=== PATIENT | female | born 1955 | race Two or more races ===

== ENCOUNTER 2019-03-19 11:37 | Inpatient (IN) | payer MEDICAID ==
[2019-03-19] MEDS ORDERED: LR 1,000 ML IV ONE (13:13)
--- NOTE | 2019-03-19 14:00 | PDANEPAE ---
ANE Past Medical History - Cardiovascular History Hx Hypertension: Yes Hx Arrhythmias: No Hx Chest Pain: No Hx Coronary Artery / Peripheral Vascular Disease: No Hx CHF / Valvular Disease: No Hx Palpitations: No - Pulmonary History Hx COPD: No Hx Asthma/Reactive Airway Disease: No Hx Recent Upper Respiratory Infection: No Hx Oxygen in Use at Home: No O2 in Use at Home (L/minute): 2 Hx Sleep Apnea: No - Neurologic History Hx Cerebrovascular Accident: No Hx Seizures: No Hx Dementia: No - Endocrine History Hx Diabetes: Yes - Renal History Hx Renal Disorders: No - Liver History Hx Hepatic Disorders: No - Neurological & Psychiatric Hx Hx Neurological and Psychiatric Disorders: No - Cancer History Hx Cancer: No - Congenital Disorder History Hx Congenital Disorders: No - GI History Hx Gastrointestinal Disorders: No - Chronic Pain History Chronic Pain: Yes - Surgical History Prior Surgeries: hysterectomy, gall bladder surgery, appendectomy, right knee surgery, left rotator cuff repair, left knee repair ANE Review of Systems Review of Systems: - Exercise capacity METS (RN): 1 METS ANE Patient History - Allergies Allergies/Adverse Reactions: No Known Allergies Allergy (Unverified 03/19/19 11:46) - NPO status NPO Since - Liquids (Date): 03/19/19 NPO Since - Liquids (Time): 10:00 NPO Since - Solids (Date): 03/19/19 NPO Since - Solids (Time): 03:00 - Smoking Hx Smoking Status: Former smoker ANE Labs/Vital Signs - Vital Signs Blood Pressure: 163/66 Heart Rate: 81 Respiratory Rate: 16 O2 Sat (%): 93 Height: 170.18 cm Weight: 158.304 kg ANE Physical Exam - Airway Mallampati Score: Class 2 - ASA Status ASA Status: III ANE Anesthesia Plan Anesthesia Plan: GA w LMA
[2019-03-19] MEDS ORDERED: MIDAZOLAM 2 MG/2 ML VIAL ONE (14:08)
[2019-03-19] MEDS ORDERED: fentaNYL 100 MCG/2 ML INJ ONE ×2 (14:08→14:45)
[2019-03-19] MEDS ORDERED: LIDOCAINE 2% JELLY 6 ML TOPICAL SYR ONE (14:09)
[2019-03-19] MEDS ORDERED: PROPOFOL 200 MG/20 ML VIAL ONE (14:09)
[2019-03-19] MEDS ORDERED: ONDANSETRON 4 MG/2 ML VIAL ONE (14:09)
[2019-03-19] MEDS ORDERED: METOCLOPRAMIDE 10 MG/2 ML VIAL ONE (14:09)
[2019-03-19] MEDS ORDERED: ONDANSETRON 4 MG/2 ML VIAL IVP PRN (14:52)
[2019-03-19] MEDS ORDERED: ONDANSETRON DISINTEGRATING 4 MG TAB PO PRN ×2 (14:52→15:44)
--- NOTE | 2019-03-19 14:58 | PDGENHP ---
History and Physical - Chief Complaint septic knee - History of Present Illness 63yo F with history of obesity, diabetes (A1c 5.9% on 03/11/19), HTN, HLD presents from [facility] for further management of right septic knee. She underwent R TKA with Dr French on 02/24. She developed post-operative infection and underwent explant of prosthesis with placement of antibiotic infused cement spacer with Dr Sinai Loza on 03/10. She was started on IV vancomycin on 03/10. Cultures from this operation reportedly grew ESBL Proteus mirabilis and she was switched to IV zosyn 3.375mg q8h on 03/15 and vancomycin was discontinued. Her post-operative course has also been complicated by bleeding from her wound; she has required 5 units of PRBCs since 03/10. Her xarelto, which she was on for DVT prevention, has been stopped. Approximately 2 days ago (03/17), the wound drainage significantly increased and the wound continued to dehisce. She had a wound vac placed on 03/18. The decision was made to transfer to this facility today for ongoing management. Dr French is taking her to the OR this afternoon for additional washout and spacer exchange. Dr Ruffin of infectious disease has been consulted. Currently, she is without complaints. I did review her labs from 03/18 which were notable for a BUN of 36, creatinine 1.4 (GFR 40), albumin 2.6, WBC 9.3, Hgb 10.0, platelets 263. She had a UA with microscopy done on 03/18 which showed 2+ protein, 2+ blood but was negative for infection. I was unable to locate culture data in the very thick packet that arrived with the patient. History Information - Allergies/Home Medication List Allergies/Adverse Reactions: No Known Allergies Allergy (Unverified 03/19/19 11:46) I have personally reviewed and updated: family history, medical history, social history, surgical history - Past Medical History Additional medical history: obesity, osteoarthritis, HTN, diabetes, HLD - Surgical History Additional surgical history: R TKA s/p removal and spacer placement (02/2019), L shoulder rotator cuff repair - Family History Positive for: non-pertinent - Social History Smoking Status: Former smoker Alcohol Use: None Drug Use: None Additional social history: Lives alone in [place], [place] Review of Systems Review of Systems: ROS: 10pt was reviewed & negative except for what was stated in HPI & below Physical Exam Physical Exam: Temp Pulse Resp BP Pulse Ox 36.6 C 81 16 163/66 H 93 03/19/19 13:20 03/19/19 14:00 03/19/19 14:00 03/19/19 14:00 03/19/19 14:00 Constitutional: no apparent distress, obese Eyes: PERRL, anicteric sclera, EOMI Ears, Nose, Mouth, Throat: moist mucous membranes, hearing normal, ears appear normal, no oral mucosal ulcers Cardiovascular: regular rate and rhythym, no murmur, rub, or gallop, No edema Respiratory: no respiratory distress, no rales or rhonchi, clear to auscultation Gastrointestinal: normoactive bowel sounds, soft, non-tender abdomen, no palpable masses Genitourinary: no bladder fullness, no bladder tenderness Skin: warm, normal color, no rashes or abrasions, no fluctuance, no induration, No mottled Musculoskeletal: full muscle strength, no muscle tenderness, normal joint ROM, no joint effusions Neurologic: AAOx3 Psychiatric: interacting appropriately, not anxious, not encephalopathic, thought process linear Lab Data & Imaging Review POC Glucose 76 mg/dL (70-100) 03/19/19 14:07 Assessment & Plan Assessment: 63yo F with history of obesity, diabetes, HTN, HLD, recent R TKA presents from [facility] for further management of right septic knee. Plan: #Infected prosthetic R knee/septic arthritis: R TKA 02/24 s/p explant 03/10 with placement of antibiotic spacer. Joint cultures from 03/10 reportedly grew ESBL+ Proteus mirabilis. - Dr French performing washout and spacer exchange today in OR - Dr Ruffin of ID has been consulted - Continue IV zosyn 3.375g q8h - Follow intra-op cultures - Has PICC line (RUE, placed 03/10), will need extended course of antibiotics - Wound care, PT/OT, pain control #Acute kidney injury: Cr 0.7 on 03/10, up to 1.4 on 03/18. Suspect prerenal. Vancomycin toxicity a possibility but vanc troughs were 10 and 14 when checked last week. - Hold losartan - Check fena, getting fluids, recheck in AM #Diabetes: Review of notes shows some hypoglycemia at outside hospital on insulin. - Decrease glargine to 15u BID (was on ), continue SSI, check A1c #Post-operative anemia: S/p 5u PRBC at outside hospital - Xarelto was discontinued, monitor daily #Acute hypoxia: Atelectasis - Incentive spirometry at bedside #HTN: BP controlled. - Holding ARB as above, will need to monitor #Obesity: BMI 54. VTE ppx: per ortho Code: full Diet: NPO for procedure Dispo: Admit as inpatient. Will likely require >2 midnights given complexity of medical care, need for IV antibiotics, and recovery from surgery.
[2019-03-19] MEDS ORDERED: DIPHENOXYLATE/ATROPINE LOMOTIL 1 TAB PO PRN (15:44)
[2019-03-19] MEDS ORDERED: LACTULOSE 20 GM/30 ML UDCUP PO PRN (15:44)
[2019-03-19] MEDS ORDERED: METOCLOPRAMIDE 10 MG/2 ML VIAL IVP PRN (15:44)
[2019-03-19] MEDS ORDERED: BISACODYL 10 MG SUPP PR PRN (15:44)
[2019-03-19] MEDS ORDERED: PROMETHAZINE HCL 25 MG/ML INJ IVP PRN (15:44)
[2019-03-19] MEDS ORDERED: PROMETHAZINE HCL 25 MG SUPPR PR PRN (15:44)
[2019-03-19] MEDS ORDERED: diphenhydrAMINE 25 MG CAP PO PRN (15:44)
[2019-03-19] MEDS ORDERED: MAGNESIUM HYDROXIDE 30 ML UDCUP PO PRN (15:44)
[2019-03-19] MEDS ORDERED: NALOXONE HCL 0.4 MG/ML INJ IVP PRN (15:49)
[2019-03-19] MEDS ORDERED: LR 500 ML IV PRN (15:49)
--- NOTE | 2019-03-19 15:50 | POSTANESTH ---
Post Anesthetic Evaluation Cardiovascular Status: Normal, Stable Respiratory Status: Normal, Stable Level of Consciousness/Mental Status: Can Participate in Eval Pain Control: Adequate, Prn Tx Ordered Nausea/Vomiting Control: Adequate, Prn Tx Ordered Complications Possibly Related to Anesthesia: None Noted
[2019-03-19] MEDS: HYDROmorphONE/DILAUDID 1 MG/ML INJ IVP PRN ×2 (15:51→21:06)
--- NOTE | 2019-03-19 15:54 | POSTOPPROG ---
Post Op Note Date of Operation: 03/19/19 Surgeon: Clayton French Anesthesiologist: ac Anesthesia: GET(General Endotracheal) Pre-op Diagnosis: septic RT knee Post-op Diagnosis: same Indication: infection not responding to IV abx Procedure: I&D Inf/Abcess present in the surg proc area at time of surgery?: Yes Depth: Deep Incisional (Fascial) EBL: 50-100 Complications: none Bowel Protocol: Yes Clean Closure Performed: Yes Drains: Wound Vac
[2019-03-19] MEDS: fentaNYL 100 MCG/2 ML INJ IVP PRN ×2 (15:57→16:01)
[2019-03-19] MEDS ORDERED: LR 1,000 ML IV SCH (16:00)
[2019-03-19] MEDS ORDERED: HYDROmorphONE/DILAUDID 1 MG/ML INJ IVP PRN (16:24)
[2019-03-19] MEDS: ONDANSETRON 4 MG/2 ML VIAL IVP PRN (17:49)
[2019-03-19] MEDS: oxyCODONE IR 5 MG TAB PO PRN ×2 (17:51→18:23)
[2019-03-19] MEDS: ACETAMINOPHEN 325 MG TAB PO PRN (17:51)
[2019-03-19] MEDS: CYCLOBENZAPRINE 10 MG TAB PO PRN (17:51)
[2019-03-19] MEDS ORDERED: D50W 25 GM/50 ML SYR IVP PRN (19:00)
--- NOTE | 2019-03-19 19:03 | GOP ---
[f rep st] OPERATIVE REPORT DATE OF OPERATION: 03/19/2019 SURGEON: Clayton French MD ANESTHESIA: General. ANESTHESIOLOGIST: Dr. Hopson. PREOPERATIVE DIAGNOSIS: Septic arthritis, right knee following explant total knee arthroplasty. POSTOPERATIVE DIAGNOSIS: PROCEDURE PERFORMED: FINDINGS: ESTIMATED BLOOD LOSS: 10 mL. INDICATIONS: The patient is a 63-year-old female who underwent total knee arthroplasty in [facility] by myself approximately 3 weeks ago. She had postoperative infection with dehiscence of the wou nd after a fall at home. The implant was explanted approximately 9 days ago. Antibiotic spacer was placed. Cultures grew Proteus. She was switched from vancomycin to Zosyn this past Sunday, however, failed to respond to the antibiotic and wound dehisced a second time despite ongoing local wound car e and IV antibiotics. Decision was made to transferred to [facility] for a further I a nd D, Infectious Disease consult. DESCRIPTION OF PROCEDURE: After appropriate informed consent was obtained, patient was taken to the operating room, placed supine on the operating table. Time-out was performed. Patient was identifie d, correct site was identified. She did not receive any additional antibiotics. She received a dose of Zosyn this morning. Following general endotracheal tube anesthesia, she was positioned with all bony prominences well padded. The right knee was prepped and draped in the usual sterile fashion. Remaining sutures were removed. Approximately the lower third of the wound had dehisced. Wound was opened. There was some foul smelling material. No purulence within the wound. There was some nonvi able subcutaneous fat. This was debrided back sharply. Bleeding was controlled with electrocautery, as well as the Aquamantys device. Tensor mechanism was deficient on the medial side of the joint. Antibiotic spacer was in place. This was removed. The wound was then irrigated with 6 L of normal s moisés using pulsatile lavage. Bleeding was again controlled with electrocautery. Spacer was replace d. The deep layers were closed with 0 Vicryl. Superficial layers were closed with 2-0 Vicryl and 2-0 Pr olene sutures. I was able to get the majority of the wound closed, other than right of about 4 cm di stal to the most inferior spot. Wound VAC was placed over the entire incision and sterilely applied. Patient was awakened from anesthesia taken to the recovery in satisfactory condition. There were n o immediate intraoperative complications. PROCEDURE PERFORMED: Irrigation, debridement with antibiotic spacer exchange. COMPLICATIONS: None. DRAINS: None. /[id number]/MODL
[2019-03-19] MEDS: PIPERACILLIN/TAZO 3.375 GM/DEX 50 ML IV SCH (20:06)
[2019-03-19] MEDS ORDERED: INSULIN GLARGINE 100 UNITS/ML UNIT SC SCH (21:00)
[2019-03-19] MEDS: FAMOTIDINE 20 MG TAB PO SCH (21:05)
[2019-03-19] MEDS: SENNOSIDES/DOCUSATE SODIUM TAB PO SCH (21:05)
[2019-03-19] MEDS: TEMAZEPAM 15 MG CAP PO PRN (21:13)
[2019-03-19] MEDS: INSULIN GLARGINE 100 UNITS/ML UNIT SC SCH (22:24)
[2019-03-20] MEDS ORDERED: PIPERACILLIN/TAZO 4.5 GM/DEX 100 ML IV SCH
[2019-03-20] MEDS: oxyCODONE IR 5 MG TAB PO PRN (00:54)
[2019-03-20] MEDS: CYCLOBENZAPRINE 10 MG TAB PO PRN (02:15)
[2019-03-20] MEDS: PIPERACILLIN/TAZO 3.375 GM/DEX 50 ML IV SCH ×2 (04:04→11:38)
[2019-03-20] MEDS ORDERED: ALTEPLASE 2 MG VIAL IVP PRN (04:15)
[2019-03-20 04:42] LABS: PLATELET COUNT 270 10^3/uL (150-400)
[2019-03-20] MEDS ORDERED: LEVOTHYROXINE 25 MCG TAB PO SCH (06:00)
[2019-03-20] MEDS ORDERED: INSULIN GLARGINE 100 UNITS/ML UNIT SC SCH (09:00)
--- NOTE | 2019-03-20 09:34 | SOAPPROG ---
SOAP Progress Note Assessment/Plan: Assessment: s/p right knee debridement washout and wound vac application - POD 1 s/p right TKA - on 02-24-19 in [place] s/p right TKA explant and placement of antibiotic infused spacer - on 03-10-19 in [place] Plan: Begin d/c planning - will likely need more extensive care due to complexity of medical care- likely SNF Continue pain management - currently tylenol, oxycodone, flexeril, dilaudid IV - change to oral dilaudid and robaxin Continue PT efforts - WBAT. No ROM. Keep knee immobilizer in place. ID and Hospital medicine to follow - on zosyn 3.375 mg; wound vac on right knee ; several intra-operative cultures pending. -Knee joint - gram stain: 4+ PMN, no organisms seen; anaerobic cx: pending -Knee/synovial tissue - gram stain: no PMN, no organisms seen; anaerobic cx: pending -Knee joint and synovial tissue fungal cx: pending -Synovial tissue mycobacterial cx and smear: pending Subjective: Patient states she is having quite a bit of pain at the right knee and her current pain medication is not relieving it very well. She notices Dilaudid IV to be the most effective. She is also complaining of muscle spasms. Patient lives with her in [place], [place] but does not feel she would be able to go home initially and she would require more care. Patient denies shortness of breath, chest pain, fever, chills. She does complain of calf pain secondary to neuropathy. Objective: Vital Signs Temp Pulse Resp BP Pulse Ox 36.8 C 87 18 166/72 H 98 03/20/19 08:00 03/20/19 08:00 03/20/19 08:00 03/20/19 08:00 03/20/19 08:00 Microbiology 03/19/19 14:48 Gram Stain - Final Knee - Tissue 03/19/19 14:47 Gram Stain - Final Knee - Eswab Laboratory Results 03/20/19 04:35 03/20/19 04:35 03/19/19 03/20/19 03/21/19 05:59 05:59 05:59 Intake Total 1900 Output Total 325 Balance 1575 Patient lying comfortably in bed, no acute distress. Real catheter is in place. Obese body habitus. RLE: Knee immobilizer is in place, fitting well. Wound vac is also in place over the entire incision. Skin is intact. No purulent drainage. She has diffuse tenderness along the medial and lateral aspects of the knee soft tissues and bony structures. ROM not assessed. Calf is soft, but tender. No pain on Homans sign. She can actively DF and PF her right foot and great toe. Palpable DP pulse. Intact to light touch distally. ICD10 Worksheet Patient Problems: Problems Problem Status Onset Right knee pain Acute - ICD10 Problem Qualifiers (1) Right knee pain Qualifiers: Chronicity: acute Qualified Code(s): M25.561 - Pain in right knee
[2019-03-20] MEDS ORDERED: METHOCARBAMOL 750 MG TAB PO PRN (10:04)
[2019-03-20] MEDS: INSULIN LISPRO 100 UNIT/ML SC SCH ×3 (10:11→18:08)
[2019-03-20] MEDS: DULoxetine 60 MG CAP PO SCH (10:11)
[2019-03-20] MEDS: ACETAMINOPHEN 325 MG TAB PO PRN ×3 (10:12→21:07)
[2019-03-20] MEDS: LEVOTHYROXINE 50 MCG TAB PO SCH (10:12)
[2019-03-20] MEDS: FAMOTIDINE 20 MG TAB PO SCH ×2 (10:12→20:58)
[2019-03-20] MEDS: INSULIN GLARGINE 100 UNITS/ML UNIT SC SCH ×3 (10:13→22:18)
[2019-03-20] MEDS: POLYETHYLENE GLYCOL 3350 17 GM PKT PO PRN (10:16)
[2019-03-20] MEDS: SENNOSIDES/DOCUSATE SODIUM TAB PO SCH ×3 (10:16→20:58)
[2019-03-20] MEDS: HYDROmorphONE/DILAUDID 2 MG TAB PO PRN ×2 (11:02→13:38)
--- NOTE | 2019-03-20 11:22 | PDMN ---
Medical Necessity Medical necessity: Pt meets IP criteria per & KELLY M-605; est los >2 mn for eval/tx of septic arthritis w/acute kidney injury & hypoxia; requiring further monitoring, surgical intervention, IV abx & ID consult; per H&P & order 03/19/19
[2019-03-20] MEDS: NS 1,000 ML IV SCH (11:37)
--- NOTE | 2019-03-20 13:30 | PDCONSULT ---
Facility Worker Note: Infectious Diseases Consult Note Impression: 63-year-old woman with an early postoperative infection of a right knee total arthroplasty. She is now status post 2 washout and debridements with removal of the initial hardware. Will continue with the plan protocol of 6 weeks of IV antibiotics. Will utilize ertapenem as this will cover the Proteus mirabilis and a fortune to providing good activity against Staphylococcus aureus (MSSA) in the setting of a low burden of infection with 2 washout procedures. 1. Right prosthetic knee joint septic arthritis, acute; polymicrobial 2. Staphylococcus aureus (MSSA) and ESBL producing Proteus mirabilis right prosthetic knee joint infection 3. Status post right prosthetic knee explant with pacer placement 03/10/2019 4. Status post I and D with spacer exchange 03/19/2019 5. Diabetes mellitus, type 2 6. Morbid obesity 7. CKD Plan: 1. Stop piperacillin/tazobactam 2. Start ertapenem 1gm daily 3. CRP with morning labs for baseline 4. Follow up as previously planned with ID group near her home Mitchle Bello MD Infectious Diseases Chief Complaint: Infected right knee arthroplasty Requesting Provider: Dr. French Reason for Referral: Consultation was requested by Dr. French regarding antimicrobial management. HPI: 63-year-old woman who was transferred from [facility] for further surgical management right knee total arthroplasty early postoperative infection. She initially underwent right total knee arthroplasty on 02/24/2019 with a procedure to remove the prosthesis and place a spacer on 03/10/2019 due to purulent drainage and dehiscence of the wound. Cultures taken from the washout on 03/10/2019 revealed Staphylococcus aureus (MSSA) that happen. Also be penicillin susceptible and an ESBL producing Proteus mirabilis. She was initially treated with vancomycin between 03/10 and 03/15 1 the cultures resulted the vancomycin was stopped and piperacillin/tazobactam was started on 03/15. She was transferred to [facility] for further surgical debridement and spacer exchange. She underwent this procedure on 03/19 with cultures pending. Postoperatively she states she is feeling reasonably well with good control of her postoperative pain in the right knee. She notes no fevers but has noted chills over the past few days. She has a right upper extremity PICC line that is not cause any complications since placement on 03/10. She notes no antibiotic allergies in the past and has tolerated both the vancomycin and the Zosyn that she has received since her hospitalization. She has not developed diarrhea or rash while receiving Zosyn. Review of culture records from outside hospital reveal an ESBL producing Proteus mirabilis that is resistant to levofloxacin, trimethoprim/ sulfamethoxazole, susceptible to ertapenem and amikacin. Culture also grew Staphylococcus aureus (MSSA) that is susceptible to oxacillin at an ROXY of 0.5 and is susceptible to penicillin; additional susceptibilities revealed tetracyclines susceptible rifampin susceptible. Reviewed patient medical records in [facility], and [facility] Past Medical History: Diabetes mellitus, morbid obesity Past Surgical History: Left total knee arthroplasty (04/2018); right total knee arthroplasty 02/24/2019, right knee total arthroplasty explant with spacer placement 03/10/2019, right knee I and D with spacer exchange 03/19/2019 Social History: Does not use tobacco products; Does not consume marijuana products; Drinks alcohol socially; Does not use any other drugs currently or in the past Family History: No family members with recurrent infections Allergies: No known antibiotic allergies Medications: Reviewed in medical record and confirmed with patient. ROS: 10 organ systems reviewed; pertinent positives and negatives listed in the HPI, all other organ systems negative. Physical Exam: VS: Reviewed Gen: No acute distress; Breathing comfortably without supplemental oxygen; Able to speak in complete sentences Eyes: No conjunctival injection; No scleral icterus HENT: No gross deformities Neck: No limitation in range of motion Pulm: Audible inspiratory sounds to the bases bilaterally; No wheeze, rhonchi, or rales CV: Normal S1 and S2, 3/6 systolic murmur; Regular rate and rhythm; No rubs or gallops; Mild LLE edema Abd: Not distended; Normo-active bowel sounds; Soft; Non-tender Skin: A full skin exam including exposed bilateral upper extremities, bilateral lower extremities to the knees, face, neck, abdomen, chest, and back performed; Skin intact, warm, with no rash MSK: Right lower extremity in postsurgical wrapping not taken down; other joints without erythema or edema Ext: No clubbing or cyanosis Neuro: Awake and alert Psych: Normal mood and affect Labs/Imaging: All microbiology testing (culture and non-culture) reviewed in the medical record. Personally reviewed and interpreted the images of the following radiographs: No images available for review Medications Generic Name Dose Route Start Last Admin Trade Name Freq PRN Reason Stop Dose Admin Piperacillin/Tazobactam/Dextrose 50 mls @ 100 mls/hr 03/19/19 19:30 03/20/19 11:38 Zosyn 3.375 Gm (Premix) IV 04/18/19 19:29 50 mls Q8H SABINO Protocol Discontinued Medications Generic Name Dose Route Start Last Admin Trade Name Freq PRN Reason Stop Dose Admin Piperacillin/Tazobactam/Dextrose 100 mls @ 200 mls/hr 03/20/19 00:00 Zosyn (Premix) IV 04/19/19 00:00 Q6HRS SABINO Protocol Microbiology 03/19/19 14:48 Knee - Tissue Gram Stain - Final 03/19/19 14:47 Knee - Eswab Gram Stain - Final Laboratory Tests 03/20/19 03/20/19 03/20/19 04:35 04:35 04:35 WBC 11.51 H Hgb 8.8 L Plt Count 270 Creatinine 2.3 H Hemoglobin A1c Pending Ongoing monitoring for antimicrobial toxicity with: CBC, BMP, interval historical information, and interval physical exam. [id number] time with patient: 45 minutes with >50% of [id number] time spent in counseling, patient education, and coordinating care. Counseling provided included the microbiology of early prosthetic knee joint infections, expected time to resolution, natural history without treatment, and side effects of treatment.
[2019-03-20] MEDS: ERTAPENEM 1 GM in NS 100 ML IV SCH (14:37)
--- NOTE | 2019-03-20 15:50 | HOSPPROG ---
Hospitalist Progress Note Assessment/Plan: 63yo F with history of obesity, diabetes, HTN, HLD, recent R TKA presents from [facility] for further management of right septic knee. #Infected prosthetic R knee/septic arthritis: R TKA 02/24 s/p explant 03/10 with placement of antibiotic spacer. Joint cultures from 03/10 reportedly grew ESBL+ Proteus mirabilis. -status post washout with replacement of antibiotic spacer yesterday in OR -case discussed with ID, stop zosyn, start invanz, will likely need 6 weeks. -transition pain medications to PO, - Follow intra-op cultures - Has PICC line (RUE, placed 03/10), will need extended course of antibiotics - Wound care, PT/OT, pain control #Acute kidney injury: Cr 0.7 on 03/10, up to 1.4 on 03/18. Today creatinine jumped to 2.3 Suspect prerenal and may have been exacerbated by getting vanc and zosyn. Did not get much fluids in the last 24 hours. -restart IV saline -if no improvement over next 24 hours, get renal us, consult nephrology. - Hold losartan - Check fena, getting fluids, recheck in AM #Diabetes: Review of notes shows some hypoglycemia at outside hospital on insulin. - Decrease glargine to 15u BID (was on ), continue SSI, check A1c #Post-operative anemia: S/p 5u PRBC at outside hospital - Xarelto was discontinued, monitor daily #Acute hypoxia: Atelectasis - Incentive spirometry at bedside #HTN: BP controlled. - Holding ARB as above, will need to monitor #Obesity: BMI 54. VTE ppx: per ortho Code: full Diet: diabetic Dispo: inpatient for septic knee, [place] Subjective: pain manageable, not taking great PO. Objective: Vital Signs Temp Pulse Resp BP Pulse Ox 36.8 C 87 12 161/75 H 97 03/20/19 15:42 03/20/19 15:42 03/20/19 15:42 03/20/19 15:42 03/20/19 15:42 Microbiology 03/19/19 14:48 Gram Stain - Final Knee - Tissue 03/19/19 14:47 Gram Stain - Final Knee - Eswab 03/19/19 14:48 Mycobacterial Smear (ROXY) - Final Knee - Tissue Laboratory Results 03/20/19 04:35 03/20/19 04:35 03/19/19 03/20/19 03/21/19 05:59 05:59 05:59 Intake Total 1900 Output Total 325 Balance 1575 - Physical Exam Constitutional: no apparent distress, appears nourished, not in pain Eyes: PERRL, anicteric sclera, EOMI Ears, Nose, Mouth, Throat: moist mucous membranes, hearing normal, ears appear normal, no oral mucosal ulcers Cardiovascular: regular rate and rhythym, no murmur, rub, or gallop Respiratory: no respiratory distress, no rales or rhonchi, clear to auscultation Gastrointestinal: normoactive bowel sounds, soft, non-tender abdomen, no palpable masses Genitourinary: no bladder fullness, no bladder tenderness, no renal bruits Skin: no rashes or abrasions, no fluctuance, no induration Musculoskeletal: full muscle strength, no muscle tenderness, normal joint ROM, other (right knee with wound vac, knee immobilizer. ) Neurologic: AAOx3, sensation intact bilaterally Psychiatric: interacting appropriately, not anxious, not encephalopathic, thought process linear Lymph, Heme, Immunologic: no cervical LAD, no supraclavicular LAD ICD10 Worksheet Patient Problems: Problems Problem Status Onset Right knee pain Acute
[2019-03-20] MEDS: METHOCARBAMOL 500 MG TAB PO PRN (16:52)
--- NOTE | 2019-03-20 16:53 | ASMTCMCOM ---
CM Note CM Note Notes: Pt with co-morbidities including diabetes, HTN, HLD, obesity is a [place] resident in from [facility]. Pt has septic knee, had R TKA 02/24/19. Pt had R knee debridement washout and wound vac placement . PT/OT rec SNF. Pt sole insurance is Medicaid. Pt is open to 30 day Medicaid SNF stay. [id number] completed and [employer] notified to submit a LTC gabriela. Connie Tanya ([phone]) with [facility] completed pt assessment and approved her, the PASRR will not trigger. Connie will have her assessment written up tomorrow. Referrals sent to [place] Medicaid SNF facilities and Adriel with [facility] send the referral to [facility] since they are a [facility] facility. Adriel with [facility] and Kari with [facility] completed on-site assessments today. Kari with [facility] asks if [facility] will consider covering the cost of the wound vac and supplies, [facility] [employer] [facility] can consider, CM to work on getting an estimate. [facility] declines pt since they have no Medicaid bed. Neither [facility] or [facility] swing beds are an option due to the Medicaid insurance. D/c plan of care: Medicaid SNF and which is TBD Date Signed: 03/20/2019 04:53 PM Electronically Signed By:MELA Coley
[2019-03-20] MEDS: TEMAZEPAM 15 MG CAP PO PRN (21:07)
[2019-03-21] MEDS: METHOCARBAMOL 500 MG TAB PO PRN ×4 (02:01→23:37)
[2019-03-21] MEDS: HYDROmorphONE/DILAUDID 2 MG TAB PO PRN ×6 (03:51→22:47)
[2019-03-21] MEDS: ACETAMINOPHEN 325 MG TAB PO PRN ×3 (03:51→23:37)
[2019-03-21] MEDS: LEVOTHYROXINE 50 MCG TAB PO SCH (05:22)
[2019-03-21] MEDS: INSULIN LISPRO 100 UNIT/ML SC SCH ×3 (07:58→17:57)
[2019-03-21] MEDS: FAMOTIDINE 20 MG TAB PO SCH ×2 (08:34→21:12)
[2019-03-21] MEDS: ERTAPENEM 1 GM in NS 100 ML IV SCH (08:34)
[2019-03-21] MEDS: DULoxetine 60 MG CAP PO SCH (08:35)
[2019-03-21] MEDS: SENNOSIDES/DOCUSATE SODIUM TAB PO SCH ×2 (08:35→21:12)
[2019-03-21] MEDS: INSULIN GLARGINE 100 UNITS/ML UNIT SC SCH ×2 (09:11→22:10)
--- NOTE | 2019-03-21 09:39 | SOAPPROG ---
SOAP Progress Note Assessment/Plan: Assessment: s/p right knee debridement washout and wound vac application - POD 2 s/p right TKA - on 02-24-19 in [facility] s/p right TKA explant and placement of antibiotic infused spacer - on 03-10-19 in [facility] Plan: Order venous doppler U/S bilateral lower extremities - calf tenderness, s/p right knee washout, immobilized, currently not on VTE ppx Wound care nurses to change wound vac this AM Continue d/c planning - will likely need more extensive care due to complexity of medical care- likely SNF Continue pain management - currently tylenol, dilaudid, robaxin, dilaudid IV Continue PT efforts - WBAT. No ROM. Keep knee immobilizer in place. ID and Hospital medicine to follow - on ertapenem; wound vac on right knee -Staphylococcus aureus (MSSA) and ESBL producing Proteus mirabilis right prosthetic knee joint infection Subjective: Patient states her right knee, leg continues to hurt despite changing to oral dilaudid. She continues to have spasms as well. Patient states any little movement makes her knee/leg hurt. She denies shortness of breath, chest pain. Objective: Vital Signs Temp Pulse Resp BP Pulse Ox 36.7 C 79 17 157/67 H 97 03/21/19 07:35 03/21/19 07:35 03/21/19 07:35 03/21/19 07:35 03/21/19 07:35 Microbiology 03/19/19 14:48 Gram Stain - Final Knee - Tissue 03/19/19 14:47 Gram Stain - Final Knee - Eswab 03/19/19 14:48 Mycobacterial Smear (ROXY) - Final Knee - Tissue Laboratory Results 03/21/19 00:50 03/21/19 00:50 03/20/19 03/21/19 03/22/19 05:59 05:59 05:59 Intake Total 1900 1475 Output Total 325 950 Balance 1575 525 Patient lying supine in bed, she does appear to be in discomfort. Obese body habitus. RLE: Knee immobilizer and wound vac are in place. No changes in the appearance of the incision since yesterday. No purulent drainage. There is diffuse tenderness about the knee, primarily along the medial and lateral aspects near the femoral condyles. ROM not assessed. She has significant tenderness along the medial aspect of the right and left lower leg compartments. No pain on Homans sign. She can actively DF and PF her right foot and great toe against resistance. Grossly NVI distally. ICD10 Worksheet Patient Problems: Problems Problem Status Onset Right knee pain Acute - ICD10 Problem Qualifiers (1) Right knee pain Qualifiers: Chronicity: acute Qualified Code(s): M25.561 - Pain in right knee
--- NOTE | 2019-03-21 10:40 | WOCRNPDOC ---
WOCRN Advanced Assessment Note - Skin Integrity Problem, Advanced Assess Right Knee Surgical Wound/Incision Dressing Type: Black Vac Foam, Wound Vac Dressing Description: Clean/Dry, Intact Closure Description: Sutures, Approximated Exudate Amount: Moderate Exudate Color: Red Exudate Characteristic(s): Serosanguinous Integumentary Issue Intervention: Dressing Changed Martha Wound Tissue: Macerated, Intact, Taught Martha Wound Swelling: Moderate Wound Edges: Well Defined Site Measurement - Head-to-Toe Length X Width X Depth (cm): 23x0.3 Skin Integrity Problem Comment: Incisional vac in place from OR. requesting /Sun/Sun changes because wound decompensated quickly under last vac treatment. Wound bed and martha-wound tissue cleaned with NS and gauze. Distal end of incision oozing serosanguinous drainage. Skin prep applied to martha-wound tissue and wound edges draped in typical fashion. Of note, previous application of vac allowed black foam to come in contact with intact martha-wound skin causing some maceration. Single piece of small black simplace foam run along incision and covered with drape. Good seal achieved and patient tolerated well. Vac cannister changed while in room. All questions answered. Wound care will round again on Sunday. Rochelle SUERO and Jenni MTZ in room for cares. Right Lateral Knee Pressure Injury Dressing Type: Open to Air Closure Description: Not Approximated Exudate Amount: None Martha Wound Tissue: Blanching, Intact Wound Bed Color: Yellow Wound Bed Constitution: Adhered Slough Wound Edges: Attached, Well Defined Site Measurement - Head-to-Toe Length X Width X Depth (cm): 1.4x3.6xslough Pressure Injury Stage: Unstageable, Mortgage Counselor Related Pressure Injury Pressure Injury Present on Admit: Yes Skin Integrity Problem Comment: Patient states she received this wound from "stockings" worn while receiving care in [place] indicating that this wound is a medical unit secretary related pressure injury, present on admission. Wound discovered while taking down incisional vac. Wound care will continue to follow.
--- NOTE | 2019-03-21 11:56 | PCMIDPN ---
Assessment/Plan: Assessment: 63-year-old woman with an early postoperative infection of the right knee total arthroplasty. She again is growing a multi-drug resistant Proteus mirabilis early postop which suggests this organism is the predominant pathogen here. Although she did grow Staphylococcus aureus (MSSA) in the broth culture from her 1st washout procedure, this was late growth and does not seem to be the dominant pathogen so we will stay with ertapenem which will still have activity against Staphylococcus aureus (MSSA) but might not be the ideal drug in other situations. 1. Right prosthetic knee joint septic arthritis, acute; polymicrobial 2. MDR Proteus mirabilis (including ESBL production) and Staphylococcus aureus ( MSSA) right prosthetic knee joint infection 3. Status post right prosthetic knee explant with spacer placement 03/10/2019 4. Status post I&D with spacer exchange 03/19/2019 5. Diabetes mellitus, type 2 6. Morbid obesity 7. Acute kidney injury chronic kidney disease Plan: 1. Continue ertapenem 1gm daily; plan through 04.30.19 2. Weekly CBC with differential, BMP, and CRP 3. Contacting Dr. Mejia at [facility] for follow up as previously planned 4. Reviewed in detail potential side effects of beta-lactam antibiotics to include: allergy, rash, nausea, antibiotic-associated diarrhea, Clostridioides difficile colitis. Mitchel Bello MD Infectious Diseases 03/21/19 11:57 Subjective: No fever over the past 24 hr. She does feel occasional chills. Surgical cultures have shown the same multidrug resistant Proteus mirabilis. She is plan for wound VAC change today. No rash or diarrhea since changing to ertapenem yesterday. Objective: Vital Signs Temp Pulse Resp BP Pulse Ox 36.7 C 79 17 157/67 H 97 03/21/19 07:35 03/21/19 07:35 03/21/19 07:35 03/21/19 07:35 03/21/19 07:35 Microbiology 03/19/19 14:48 Mycobacterial Smear (ROXY) - Final Knee - Tissue 03/19/19 14:47 Gram Stain - Final Knee - Eswab 03/19/19 14:48 Gram Stain - Final Knee - Tissue Laboratory Results 03/21/19 00:50 03/21/19 00:50 03/20/19 03/21/19 03/22/19 05:59 05:59 05:59 Intake Total 1900 1475 Output Total 325 950 Balance 1575 525 C-Reactive Protein 81.5 mg/L (<10.0) H 03/21/19 00:50 Medications Generic Name Dose Route Start Last Admin Trade Name Maren PRN Reason Stop Dose Admin Ertapenem 1 gm/ Sodium 100 mls @ 200 mls/hr 03/20/19 13:45 03/21/19 08:34 Chloride IV 04/19/19 13:44 100 mls DAILY SABINO Protocol Microbiology 03/19/19 14:48 Knee - Tissue Gram Stain - Final 03/19/19 14:47 Knee - Eswab Gram Stain - Final 03/19/19 14:48 Knee - Tissue Anaerobic Culture - Preliminary Proteus Mirabilis 03/19/19 14:47 Knee - Eswab Anaerobic Culture - Preliminary Proteus Mirabilis Laboratory Tests 03/20/19 03/21/19 04:35 00:50 WBC 11.51 H Creatinine 2.7 H C-Reactive Protein 81.5 H - Physical Exam General Appearance: no apparent distress, non-toxic EENT: No scleral icterus Respiratory: No respiratory distress, No accessory muscle use Neck: full range of motion, supple Extremities: other (Right lower extremity remains in postoperative dressing) Skin: No erythema Neuro/Psych: alert, oriented x 3, depressed affect, No confused - Time Spent With Patient Time Spent with Patient: greater than 25 minutes Time Spent with Patient: Greater than 25 minutes spent on this patients care, greater than 50% of time spent counseling, educating, and coordinating care regarding the above mentioned plan. ICD10 Worksheet Patient Problems: Problems Problem Status Onset Right knee pain Acute
--- NOTE | 2019-03-21 12:54 | GCON ---
[f rep st] CONSULTATION REASON FOR CONSULTATION: Opinion regarding acute kidney injury. HISTORY OF PRESENT ILLNESS: The patient is a very pleasant 63-year-old female originally from [place], [place], who has life-threatening obesity, diabetes, hypertension, and hyperlipidemia. She d eveloped arthritis in her right knee and underwent right total knee arthroplasty on 02/24/2019. Unfo rtunately, about 2 weeks later, her wound began to break down and her joint was septic. She was take n to the operating room. Her knee prosthesis was explanted. An antibiotic spacer was placed and she was started on intravenous antibiotics as well as pain control. The cultures from her knee grew met hicillin sensitive Staph aureus and Proteus mirabilis. She was initially placed on vancomycin and Zo syn; however, over the course of the past several days, her serum creatinine has increased from her b aseline of 0.7 to 0.9 up to 2.7 today. We have been asked to see for evaluation and management of he r acute kidney injury and raised creatinine. Currently, she says she feels reasonably well. Her knee hurts. She has not had fevers, chills. She has occasional nausea. No vomiting. No chest pain. She has chronic shortness of breath. No cough or sputum production. No hemoptysis, hematemesis, epistaxis, abdominal pain, diarrhea, constipation , melena, hematochezia, blurry vision, double vision, headache, orthopnea, paroxysmal nocturnal dyspn ea, palpitations, or syncope. PAST MEDICAL HISTORY: Significant for: 1. Baseline creatinine between 0.7 and 0.9. 2. Diabetes mellitus type 2 diagnosed in 1997. 3. Hypertension diagnosed in 2007. 4. Life-threatening obesity. 5. Right total knee arthroplasty on 02/24/2019. 6. Status post cholecystectomy. 7. Status post hysterectomy. 8. Hyperlipidemia. 9. Anemia. CURRENT MEDICATIONS: Recently taken off vancomycin about 4 days ago and the Zosyn was taken off yest erday. She is now on: 1. Ertapenem 1 g daily. 2. Cymbalta 60 mg daily. 3. Pepcid 20 mg twice daily. 4. Insulin. 5. Dilaudid 2 to 4 mg every 4 hours p.r.n. 6. Synthroid 50 mcg daily. 7. Milk of magnesia. 8. Zofran. 9. Normal saline at 75 cc/hour. 10. Temazepam 15 mg at bedtime. ALLERGIES: None. FAMILY HISTORY: Strongly positive for diabetes, hypertension, vascular disease, and kidney failure. Her brother just recently from complications of end-stage kidney failure. SOCIAL HISTORY: She is a former tobacco user, has not used any cigarettes for 6 years. She does not use alcohol, IV or recreational drugs. She formerly enjoyed dancing. She is a retired company accountant a ssistant. REVIEW OF SYSTEMS: A complete 12-point review of systems was performed with pertinent positives and negatives as per the previous section. PHYSICAL EXAMINATION: VITAL SIGNS: Blood pressure today 157/67 (she is having some pain in that kne e), pulse 79, respirations 17, temperature 36.7, urine output 950 cc. Generally speaking, her systol ic blood pressures run in the 120s to 130s, diastolics in the 60s and 70s. GENERAL: She is awake, a lert, cooperative, pleasant and is in no acute distress. HEENT: Pupils are reactive to light. Extra ocular movements are intact. Mucous membranes are moist. NECK: Thick. No lymphadenopathy or thyro megaly. HEART: Regular. No rub. No S3. No murmur. LUNGS: No rales, rhonchi, or wheezes. ABDOM EN: Bowel sounds are positive. She is obese, soft, nontender, nondistended. No obvious organomegal y, masses, or bruits. EXTREMITIES: Trace edema bilaterally. NEUROLOGIC: No asterixis. SKIN: No unusual rashes or lesions. She does have 4 tattoos. LYMPH: No palpable lymphadenopathy or lymphede ma. MUSCULOSKELETAL: She has a brace on her right leg. LABORATORY: WBC 11.5, hemoglobin 8.8 up from 8.4 yesterday, hematocrit 27, platelet count 270,000. Serum sodium today 130, potassium 4.9, chloride 100, CO2 is 22, BUN 51, creatinine 2.7, glucose 146, calcium 7.7. CRP 81.5. Urine sodium 24. Urine creatinine 160. Fractional excretion of sodium was 0.31. Culture from the knee showed Proteus and MRSA. Fungal cultures are pending. AFB was negative . Serum creatinine generally speaking has been in the 0.7 to 0.9 range. On 03/12/2019, hemoglobin 6.3, hematocrit 20, platelet count 226,000. Serum sodium 136, potassium 4, chloride 105, CO2 is 25, BUN 24, creatinine 0.9, glucose 130. Cholesterol 111, HDL 20, LDL 65, triglycerides 128. Over the course of the past week or so, we have seen her serum creatinine increase. Of note, during the time of her rise in serum creatinine she was on losartan 50 mg twice daily as well as Toradol for pain. IMPRESSION: 1. Acute kidney injury, multifactorial. Certainly possibility of an interstitial nephritis would be reasonable from her Zosyn and/or vancomycin. However, I suspect that her acute kidney injury is vas omotor in origin from a combination of losartan 50 mg twice daily and Toradol 15 mg every 6 hours for pain. That being said, her fractional excretion of sodium is low at 0.3. I think it is reasonable to continue her IV normal saline at 75 cc/hour. I would also like to check an echocardiogram to make sure that she has not had an ischemic event with decreased cardiac function and low flow to the kidn eys. 2. Continue antibiotics per Infectious Disease. 3. Continue to follow her electrolytes, volume status and renal function closely. 4. There are no urgent dialysis needs at this time. The patient and I had a nice discussion regardi ng indications for dialysis and all questions were answered to her satisfaction. With her serum crea tinine being solidly normal prior to a week to 10 days ago, I suspect that even should she require di alysis it would be only temporary. I would expect her to recover her kidney function. 5. All questions were answered to the patient's satisfaction. Thank you for allowing me to participate in the care of your patient. If there are any questions, pl ease do not hesitate to contact us. We will be following along with you. /[id number]/MODL
[2019-03-21 13:14] LABS: CREATINE KINASE 37 IU/L (0-156)
[2019-03-21 14:23] LABS: HEPATITIS B CORE AB TOTAL NEGATIVE (NEGATIVE); HEPATITIS B SURFACE ANTIGEN NEGATIVE (NEGATIVE); HEPATITIS C ANTIBODY TOTAL NEGATIVE (NEGATIVE); HIV TYPE 1 AND 2 NEGATIVE (NEGATIVE)
--- NOTE | 2019-03-21 15:58 | HOSPPROG ---
Hospitalist Progress Note Assessment/Plan: 63yo F with history of obesity, diabetes, HTN, HLD, recent R TKA presents from [facility] for further management of right septic knee. #Infected prosthetic R knee/septic arthritis: R TKA 02/24 s/p explant 03/10 with placement of antibiotic spacer. Joint cultures from 03/10 reportedly grew ESBL+ Proteus mirabilis. -status post washout with replacement of antibiotic spacer yesterday in OR -case discussed with ID, stop zosyn, start invanz, will likely need 6 weeks. -transition pain medications to PO, - Follow intra-op cultures - Has PICC line (RUE, placed 03/10), will need extended course of antibiotics - Wound care, PT/OT, pain control #Acute kidney injury: Cr 0.7 on 03/10, up to 1.4 on 03/18. Today creatinine jumped to 2.7 despit fluids yesterday. Suspect prerenal and may have been exacerbated by getting vanc and zosyn. -contIV saline -Renal on board, -checking echo - Hold losartan - recheck renal function in the morning. #Diabetes: Review of notes shows some hypoglycemia at outside hospital on insulin. - Decrease glargine to 15u BID (was on ), continue SSI, check A1c #Post-operative anemia: S/p 5u PRBC at outside hospital - Xarelto was discontinued, monitor daily -start heparin in the morning at 5000 bid #Acute hypoxia: Atelectasis - Incentive spirometry at bedside #HTN: BP controlled. - Holding ARB as above, will need to monitor #Obesity: BMI 54. VTE ppx: per ortho(unfractionated heparin BID) Code: full Diet: diabetic Dispo: inpatient for septic knee, LI Subjective: leg hurts, otherwise no complaints. Objective: Vital Signs Temp Pulse Resp BP Pulse Ox 36.7 C 82 20 177/71 H 95 03/21/19 15:05 03/21/19 15:05 03/21/19 15:05 03/21/19 15:05 03/21/19 15:05 Microbiology 03/19/19 14:47 Gram Stain - Final Knee - Eswab 03/19/19 14:48 Gram Stain - Final Knee - Tissue 03/19/19 14:48 Mycobacterial Smear (ROXY) - Final Knee - Tissue Laboratory Results 03/21/19 00:50 04/26/19 00:50 03/20/19 03/21/19 03/22/19 05:59 05:59 05:59 Intake Total 1900 1475 Output Total 372 067 Balance 1575 525 - Physical Exam Constitutional: chronically ill appearing, obese Eyes: PERRL, anicteric sclera, EOMI Ears, Nose, Mouth, Throat: moist mucous membranes, hearing normal, ears appear normal, no oral mucosal ulcers Cardiovascular: regular rate and rhythym, no murmur, rub, or gallop Respiratory: no respiratory distress, no rales or rhonchi, clear to auscultation Gastrointestinal: normoactive bowel sounds, soft, non-tender abdomen, no palpable masses Genitourinary: no bladder fullness, no bladder tenderness, no renal bruits Skin: no rashes or abrasions, no fluctuance, no induration, other (wound vac on right knee, with substantial drainage. ) Musculoskeletal: generalized weakness Neurologic: AAOx3, sensation intact bilaterally Psychiatric: interacting appropriately, not anxious, not encephalopathic, thought process linear Lymph, Heme, Immunologic: no cervical LAD, no supraclavicular LAD ICD10 Worksheet Patient Problems: Problems Problem Status Onset Right knee pain Acute
[2019-03-21] MEDS: HYDROmorphONE/DILAUDID 1 MG/ML INJ IVP PRN ×2 (15:59→21:12)
--- NOTE | 2019-03-21 15:59 | SOAPPROG ---
SOAP Progress Note Assessment/Plan: Assessment: s/p right knee debridement washout and wound vac application - POD 2 s/p right TKA - on 02-24-19 [facility] s/p right TKA explant and placement of antibiotic infused spacer - on 03-10-19 in [facility] Plan: Venous doppler U/S bilateral lower extremities - negative for DVT -Start heparin 5000U SC inj BID tomorrow Wound care nurses changed incisional wound vac this AM. Continue to follow Continue d/c planning - will likely need more extensive care due to complexity of medical care- likely SNF Continue pain management - currently tylenol, dilaudid, robaxin, dilaudid IV Continue PT efforts - WBAT. No ROM. Keep knee immobilizer in place. -PT had patient transfer from bed to bedside commode. This was very difficult and required 2 PTs and 1 nurse. After discussing with hospital medicine, it was decided to place catheter to minimize fall risk ID, nephrology and Hospital medicine following - on ertapenem; wound vac on right knee -Staphylococcus aureus (MSSA) and ESBL producing Proteus mirabilis right prosthetic knee joint infection -Hypertension - she was placed on hydralazine prn Subjective: Patient continues to complain of pain in the right knee but she is also complaining of right lateral hip and inguinal/groin pain. She notes having some lumbar spine issues in the past. Patient denies shortness of breath, chest pain , fever, chills. Objective: Vital Signs Temp Pulse Resp BP Pulse Ox 36.7 C 82 20 177/71 H 95 03/21/19 15:05 03/21/19 15:05 03/21/19 15:05 03/21/19 15:05 03/21/19 15:05 Microbiology 03/19/19 14:47 Gram Stain - Final Knee - Eswab 03/19/19 14:48 Gram Stain - Final Knee - Tissue 03/19/19 14:48 Mycobacterial Smear (ROXY) - Final Knee - Tissue Laboratory Results 03/21/19 00:50 03/21/19 00:50 03/20/19 03/21/19 03/22/19 05:59 05:59 05:59 Intake Total 1900 1475 Output Total 325 950 Balance 1575 525 Patient is lying supine in bed, slightly in a Trendelenburg position (due to patient positioning herself). Head of the bed was raised to bring her to a slightly elevated position. She appears to be in pain. Catheter was placed by nurse. RLE: Knee immobilizer in place, fitting well. Wound vac was changed earlier this morning. New incisional wound vac is in place. Edema diffusely about the knee. No purulent drainage from the incision. Diffuse tenderness along the medial and lateral aspects of the knee. Calf is tender. Lower leg compartments are soft. Grossly NVI distally. ICD10 Worksheet Patient Problems: Problems Problem Status Onset Right knee pain Acute - ICD10 Problem Qualifiers (1) Right knee pain Qualifiers: Chronicity: acute Qualified Code(s): M25.561 - Pain in right knee
[2019-03-21] MEDS: hydrALAZINE 20 MG/ML VIAL IVP PRN (16:00)
--- NOTE | 2019-03-21 16:18 | ASMTCMCOM ---
CM Note CM Note Notes: It appears [facility]F can accept pt, which is ideal to pt because pt can be back home in her community and pt dghtr works there. This is a [facility] facility and Adriel with [facility] ([phone]) has been brokering the assessment, working with Lyudmila at [facility] ([phone]). Clinicals faxed to [facility] [phone]. ID consulted and now pt on 1 gm ertapenem daily. Pt currently has a wound vac, [facility] will need the wound vac orders. Spoke with Brianda (supervisor wet end) about the wound vac because a concern would be getting pt back to [place], specifically, can pt be disconnected from our wound vac the [address] back or will [facility] and [facility] have to somehow get pt wv here to hook her up before the transport? Brianda reports pt wound will be re-assessed Sunday and maybe then it can be determined which type of wv pt can d/c with, the hope being pt can d/c with a Previna type vac which is disposable and will not be of concern for a transport. Adriel is updated and he will have [facility] hold off on ordering a wv until Sunday when we know more. Of note: Kimber with [employer] was consulted to provide estimate for wound vac (voicemail in saved messages on 3N). This is in case [facility] cannot take pt for any reason and [facility] will consider pt if [facility] is able to pay for wound vac and supplies. Araseli with [facility] reports pt looks clinically appropriate but they not approving pt financially now because pt reported she shares a bank account with her ex- and she declines to provide [place] to talk to family about finances/will not share bank statements. Date Signed: 03/21/2019 04:17 PM Electronically Signed By:MELA Coley
--- NOTE | 2019-03-21 16:23 | ECHO ---
[email or web address] [address] [address] Main: [phone] Echocardiography Examination Transthoracic Name: GANESH SEN MR#: [id number] Study Date: 03/21/2019 Study Time: 01:51 PM Date of : 1955 Age: 63 year(s) Height: 170.2 cm (67 in.) Weight: 158.31 kg (349 lb.) BSA: 2.56 m2 Gender: Female Examination: Echo Contrast: Image Quality: Rhythm: Heart Rate: 82 bpm BP: 157 mmHg/67 mmHg Indication: Post total knee Procedure Staff Referring Physician: Instructor Flying: Julio Cesar Fagan RDCS Reading Physician: Davin Wilson MD Requesting Provider: Ordering Physician: Mitchel Garcia Indication: Post total knee Measurements Chambers AV/MV Label Value Normal Value Label Value Normal Value LVOT Vmax 1.57 m/s (0.7m/s - 1.1m/s) AV PGmax 31 mmHg LVOTd 1.9 cm (1.8cm - 2cm) AV PGmean 16 mmHg LVOT VTI 44.3 cm (18cm - 22cm) AV Vmax 2.77 m/s LVDd, 2D 5.2 cm (3.9cm - 5.3cm) GABRIELA (Vmax) 1.6 cm2 LVDs, 2D 3 cm (2.1cm - 4cm) GABRIELA (VTI) 2.2 cm2 IVSd, 2D 1.2 cm (0.6cm - 1.1cm) MV E Vmax 1.13 m/s LVPWd, 2D 1.2 cm MV A Vmax 1.25 m/s LVEF, 2D 73 % (54% - 74%) MV E/A 0.9 LVOT PGmean 5 mmHg MV E/E' lateral 13.2 LVOT Vmean 0.98 m/s MV E/E' septal 15.7 (0.45 - 1.25) RVDd, 2D 2.2 cm (1.9cm - 3.8cm) MV E' septal 0.07 m/s LA Volume, BP 79 ml (22ml - 52ml) MV E' lateral 0.09 m/s LADs, 2D 4.2 cm (2.7cm - 3.8cm) MV E/E' mean 14.12 LAESV index, BP 30.9 ml/m2 MV E' mean 0.08 m/s Additional Vessels TV/PV Label Value Normal Value Label Value Normal Value AoAsc 2.3 cm RA Pressure 5 mmHg AoRoot, MM 2.5 cm (2.2cm - 3.7cm) RVSP 44 mmHg TR Pmax 39 mmHg Patient: GANESH SEN Study Date: 03/21/2019 Page 1 of 2 01:51 PM TR Vmax 3.11 m/s PV PGmax 12 mmHg PV Vmax, Caliper 1.7 m/s (0.6m/s - 0.9m/s) Conclusions The left ventricle is normal in size and function. There is diastolic dysfunction possibly related to hypertension as there is evidence of concentric LVH. No wall motion abnormalities to suggest ischemia. Findings Left Ventricle: Left ventricle is normal in size. Normal global systolic left ventricular function. There is mild concentric left ventricular hypertrophy. There are no regional wall motion abnormalities. Grade II Diastolic Dysfunction. IVS: The septum is intact. Right Ventricle: Normal size right ventricle. Right ventricular systolic function is normal. Left Atrium: The left atrium is normal in size. IAS: Normal appearing atrial septum. Right Atrium: The right atrium is normal in size. Mitral Valve: Normal . No mitral regurgitation. No mitral valve stenosis. Aortic Valve: Aortic leaflets exhibit normal cuspal separation. No aortic valve regurgitation. There is no aortic stenosis. Tricuspid Valve: Tricuspid valve leaflets are normal in appearance and function. Mild tricuspid regurgitation. No tricuspid valve stenosis. Right Ventricular systolic pressure is measured at 44 mmHg. Pulmonary artery pressure is upper limits of normal. Pulmonic Valve: Pulmonic leaflets exhibit normal cuspal separation. No pulmonic valve regurgitation is evident. There is no pulmonic valve stenosis. Aorta: The aorta is normal. The aortic root size in M-mode measures 2.5 cm. The ascending aorta measures 2.3 cm. Aorta Measurements AoRoot, MM is 2.5 cm. Pulmonary Artery: The pulmonary artery morphology appears normal. IVC: The inferior vena cava is normal in size and course. Pericardium: No pericardial effusion. No pleural effusion present. Exam Details Procedure Ordered: Echo (No Signature Object) Patient: GANESH SEN Study Date: 03/21/2019 Page 2 of 2 01:51 PM [id number]
[2019-03-21] MEDS: TEMAZEPAM 15 MG CAP PO PRN (23:38)
[2019-03-22] MEDS: NS 1,000 ML IV SCH (03:37)
[2019-03-22 03:48] LABS: PLATELET COUNT 301 10^3/uL (150-400)
[2019-03-22] MEDS: LEVOTHYROXINE 50 MCG TAB PO SCH (05:26)
[2019-03-22] MEDS: ACETAMINOPHEN 325 MG TAB PO PRN ×2 (06:36→15:51)
[2019-03-22] MEDS: DULoxetine 60 MG CAP PO SCH (07:52)
[2019-03-22] MEDS: INSULIN GLARGINE 100 UNITS/ML UNIT SC SCH ×2 (07:52→22:02)
[2019-03-22] MEDS: SENNOSIDES/DOCUSATE SODIUM TAB PO SCH ×2 (07:52→21:18)
[2019-03-22] MEDS: FAMOTIDINE 20 MG TAB PO SCH (07:54)
[2019-03-22] MEDS: ERTAPENEM 1 GM in NS 100 ML IV SCH (07:58)
[2019-03-22] MEDS: INSULIN LISPRO 100 UNIT/ML SC SCH ×3 (07:59→18:02)
[2019-03-22] MEDS: HEPARIN 5,000 UNIT/0.5 ML INJ SC SCH ×2 (09:10→21:17)
--- NOTE | 2019-03-22 10:01 | PCMIDPN ---
Assessment/Plan: Assessment: 63-year-old woman with an early postoperative infection of the right knee total arthroplasty. She again is growing a multi-drug resistant Proteus mirabilis early postop which suggests this organism is the predominant pathogen here. Continues to tolerate ertapenem without discernible side effect. Will plan to continue ertapenem through a total 6 week course. Follow- up location will be determined by discharge location. 1. Right prosthetic knee joint septic arthritis, acute; polymicrobial 2. MDR Proteus mirabilis (including ESBL production) and Staphylococcus aureus ( MSSA) right prosthetic knee joint infection 3. Status post right prosthetic knee explant with spacer placement 03/10/2019 4. Status post I&D with spacer exchange 03/19/2019 5. Diabetes mellitus, type 2 6. Morbid obesity 7. Acute kidney injury chronic kidney disease Plan: 1. Continue ertapenem 1gm daily; plan through 04.30.19 2. Weekly CBC with differential, BMP, and CRP 3. Contacted Dr. Mejia ([phone]) at [facility] for follow up as previously planned 4. Reviewed in detail potential side effects of beta-lactam antibiotics to include: allergy, rash, nausea, antibiotic-associated diarrhea, Clostridioides difficile colitis. Mitchel Bello MD Infectious Diseases 03/22/19 10:00 Subjective: No fever or chills. No rash or diarrhea. Continues to have significant right knee pain postoperatively. Underwent wound VAC changed yesterday. Objective: Vital Signs Temp Pulse Resp BP Pulse Ox 36.9 C 85 18 147/104 H 97 03/22/19 07:13 03/22/19 07:13 03/22/19 07:13 03/22/19 08:02 03/22/19 07:13 Microbiology 03/19/19 14:47 Gram Stain - Final Knee - Eswab 03/19/19 14:48 Gram Stain - Final Knee - Tissue 03/19/19 14:48 Mycobacterial Smear (ROXY) - Final Knee - Tissue Laboratory Results 03/22/19 03:30 03/22/19 03:30 03/21/19 03/22/19 03/23/19 05:59 05:59 05:59 Intake Total 1475 1176 Output Total 950 500 Balance 525 676 C-Reactive Protein 81.5 mg/L (<10.0) H 03/21/19 00:50 Laboratory Tests 03/20/19 03/21/19 03/22/19 04:35 11:15 03:30 WBC 11.51 H 10.62 H Plt Count 270 301 Absolute Eos (auto) 0.09 0.16 Creatinine Hepatitis C Antibody NEGATIVE HIV 1&2 Antibody NEGATIVE 03/22/19 03:30 WBC Plt Count Absolute Eos (auto) Creatinine 2.7 H Hepatitis C Antibody HIV 1&2 Antibody Ongoing monitoring for antimicrobial toxicity with: CBC, BMP, interval historical information, and interval physical exam. - Physical Exam General Appearance: no apparent distress, non-toxic EENT: No scleral icterus Respiratory: No respiratory distress, No accessory muscle use Neck: full range of motion, supple Skin: other (Right lower extremity remains in postoperative dressing, not taken down) Neuro/Psych: depressed affect, other (Somnolent but wakes to verbal and tactile stimuli; oriented x3) ICD10 Worksheet Patient Problems: Problems Problem Status Onset Right knee pain Acute
[2019-03-22] MEDS: HYDROmorphONE/DILAUDID 2 MG TAB PO PRN ×3 (10:33→21:17)
[2019-03-22] MEDS: METHOCARBAMOL 500 MG TAB PO PRN ×3 (10:33→22:09)
[2019-03-22] MEDS: HYDROmorphONE/DILAUDID 1 MG/ML INJ IVP PRN (12:41)
--- NOTE | 2019-03-22 12:53 | ASMTCMCOM ---
CM Note CM Note Notes: The best number to reach Lyudmila Turk, [facility] rep is [phone]. Date Signed: 03/22/2019 12:53 PM Electronically Signed By:MELA Coley
[2019-03-22] MEDS ORDERED: HYDROmorphONE/DILAUDID 1 MG/ML INJ IVP ONE (13:30)
--- NOTE | 2019-03-22 14:06 | HOSPPROG ---
Hospitalist Progress Note Assessment/Plan: 63yo F with history of obesity, diabetes, HTN, HLD, recent R TKA presents from [facility] for further management of right septic knee. #Infected prosthetic R knee/septic arthritis: R TKA 02/24 s/p explant 03/10 with placement of antibiotic spacer. Joint cultures from 03/10 reportedly grew ESBL+ Proteus mirabilis. -status post washout with replacement of antibiotic spacer yesterday in OR -case discussed with ID, stop zosyn, start invanz, stope date 04/30/19 -transition pain medications to PO, - Follow intra-op cultures - Has PICC line (RUE, placed 03/10), will need extended course of antibiotics - Wound care, PT/OT, pain control #Acute kidney injury: Cr 0.7 on 03/10, up to 1.4 on 03/18. Today creatinine jumped to 2.7, stable from yesterday. nephrology following. Repeat urine protein elevated. -contIV saline -Renal on board, -checking echo - Hold losartan - recheck renal function in the morning. #Diabetes: Review of notes shows some hypoglycemia at outside hospital on insulin. - Decrease glargine to 15u BID (was on ), continue SSI, check A1c #Post-operative anemia: S/p 5u PRBC at outside hospital - Xarelto was discontinued, monitor daily -heparin for dvt prophy #Acute hypoxia: Atelectasis - Incentive spirometry at bedside #HTN: BP controlled. - Holding ARB as above, will need to monitor #Obesity: BMI 54. VTE ppx: per ortho(unfractionated heparin BID) Code: full Diet: diabetic Dispo: inpatient for septic knee, LI Subjective: knee hurts. otherwise no complaints. Objective: Vital Signs Temp Pulse Resp BP Pulse Ox 36.9 C 85 18 147/104 H 97 03/22/19 07:13 03/22/19 07:13 03/22/19 07:13 03/22/19 08:02 03/22/19 07:13 Microbiology 03/19/19 14:48 Gram Stain - Final Knee - Tissue 03/19/19 14:47 Gram Stain - Final Knee - Eswab 03/19/19 14:48 Mycobacterial Smear (ROXY) - Final Knee - Tissue Laboratory Results 03/22/19 03:30 03/22/19 03:30 03/21/19 03/22/19 03/23/19 05:59 05:59 05:59 Intake Total 1475 1176 Output Total 950 500 Balance 525 676 - Physical Exam Constitutional: chronically ill appearing, obese Eyes: PERRL, anicteric sclera, EOMI Ears, Nose, Mouth, Throat: moist mucous membranes, hearing normal, ears appear normal, no oral mucosal ulcers Cardiovascular: regular rate and rhythym, no murmur, rub, or gallop Respiratory: no respiratory distress, no rales or rhonchi, clear to auscultation Gastrointestinal: normoactive bowel sounds, soft, non-tender abdomen, no palpable masses Genitourinary: no bladder fullness, no bladder tenderness, no renal bruits Skin: no induration, other (right knee with wound vac in place. ) Musculoskeletal: generalized weakness Neurologic: AAOx3, sensation intact bilaterally Psychiatric: interacting appropriately, not anxious, not encephalopathic, thought process linear Lymph, Heme, Immunologic: no cervical LAD, no supraclavicular LAD ICD10 Worksheet Patient Problems: Problems Problem Status Onset Right knee pain Acute
[2019-03-22] MEDS: POLYETHYLENE GLYCOL 3350 17 GM PKT PO PRN (17:09)
--- NOTE | 2019-03-22 19:48 | SOAPPROG ---
SOAP Progress Note Assessment/Plan: Assessment/Plan: 63 yo obese female with DM, HTN, and knee replacement on 02/24/2019 complicated by infection s/p washout and spacer placement on 03/21/2019. Course has been complicated by LI, which is most likely related to ARB + Toradol. Cr stable at 2.7. # LI --Continue to monitor Cr, except that at some point, will start to trend down --avoid NSAIDs --No need for further IVF as eating and drinking # Hyponatremia --Na running on the low side but stable, patient trying to drink to "flush her kidneys". Recommended just drinking when thirsty # Infection of knee prosthetic --further management per ID and ortho Subjective: Reports pain with PT yesterday and today, but otherwise feeling ok. No shortness of breath. Objective: Vital Signs Temp Pulse Resp BP Pulse Ox 37.1 C 98 16 161/91 H 98 03/22/19 14:30 03/22/19 14:30 03/22/19 14:30 03/22/19 14:30 03/22/19 14:30 Microbiology 03/19/19 14:48 Gram Stain - Final Knee - Tissue 03/19/19 14:47 Gram Stain - Final Knee - Eswab Laboratory Results 03/22/19 03:30 03/22/19 03:30 03/21/19 03/22/19 03/23/19 05:59 05:59 05:59 Intake Total 1475 1176 1000 Output Total 950 500 400 Balance 525 676 600 General- awake, alert, well-appearing, obese Eyes- anicteric sclera, no conjunctival injection CV- NRRR, no g/m/r, 1+LLE edema Pulm- breathing comfortably on RA, anterior lung antonio clear MSK- brace on RLE ICD10 Worksheet Patient Problems: Problems Problem Status Onset Right knee pain Acute
[2019-03-23] MEDS: HYDROmorphONE/DILAUDID 2 MG TAB PO PRN ×5 (05:21→22:18)
[2019-03-23] MEDS: LEVOTHYROXINE 50 MCG TAB PO SCH (05:22)
[2019-03-23] MEDS: hydrALAZINE 20 MG/ML VIAL IVP PRN ×2 (07:30→13:35)
[2019-03-23] MEDS: SENNOSIDES/DOCUSATE SODIUM TAB PO SCH ×2 (07:33→22:19)
[2019-03-23] MEDS: ACETAMINOPHEN 325 MG TAB PO PRN ×2 (07:33→12:53)
[2019-03-23] MEDS: METHOCARBAMOL 500 MG TAB PO PRN ×3 (07:33→23:24)
[2019-03-23] MEDS: HEPARIN 5,000 UNIT/0.5 ML INJ SC SCH ×2 (07:34→22:17)
[2019-03-23] MEDS: FAMOTIDINE 20 MG TAB PO SCH (07:34)
[2019-03-23] MEDS: DULoxetine 60 MG CAP PO SCH (07:34)
[2019-03-23] MEDS: INSULIN GLARGINE 100 UNITS/ML UNIT SC SCH ×2 (07:43→22:18)
[2019-03-23] MEDS: HYDROmorphONE/DILAUDID 1 MG/ML INJ IVP PRN ×3 (07:43→20:09)
[2019-03-23] MEDS: ERTAPENEM 1 GM in NS 100 ML IV SCH (07:44)
[2019-03-23] MEDS: POLYETHYLENE GLYCOL 3350 17 GM PKT PO PRN (07:46)
[2019-03-23] MEDS: INSULIN LISPRO 100 UNIT/ML SC SCH ×3 (10:19→17:28)
--- NOTE | 2019-03-23 10:42 | SOAPPROG ---
SOAP Progress Note Assessment/Plan: Assessment: Plan: 03/23/19 10:40 S/P I&D spacer exchange Cont Ertapenem until 04/30 Cont PT as sofia plan on transfer back to [facility] possibly Sunday Subjective: pain a little better Objective: wound vac in place wound closed calf soft Vital Signs Temp Pulse Resp BP Pulse Ox 36.6 C 86 18 170/63 H 96 03/23/19 07:13 03/23/19 07:13 03/23/19 07:13 03/23/19 07:13 03/23/19 07:13 Microbiology 03/19/19 14:48 Gram Stain - Final Knee - Tissue 03/19/19 14:47 Gram Stain - Final Knee - Eswab Laboratory Results 03/22/19 03:30 03/23/19 04:30 03/22/19 03/23/19 03/24/19 05:59 05:59 05:59 Intake Total 1176 1000 Output Total 500 850 Balance 676 150 ICD10 Worksheet Patient Problems: Problems Problem Status Onset Right knee pain Acute
[2019-03-23] MEDS: NS 1,000 ML IV SCH (12:57)
--- NOTE | 2019-03-23 13:59 | HOSPPROG ---
Hospitalist Progress Note Assessment/Plan: 63yo F with history of obesity, diabetes, HTN, HLD, recent R TKA presents from [facility] for further management of right septic knee. #Infected prosthetic R knee/septic arthritis: R TKA 02/24 s/p explant 03/10 with placement of antibiotic spacer. Joint cultures from 03/10 reportedly grew ESBL+ Proteus mirabilis. -status post washout with replacement of antibiotic spacer in OR -case discussed with ID, stop zosyn, start nando gutiérreze date 04/30/19 -transition pain medications to PO, - Follow intra-op cultures - Has PICC line (RUE, placed 03/10), will need extended course of antibiotics - Wound care, PT/OT, pain control #Acute kidney injury: Cr 0.7 on 03/10, up to 1.4 on 03/18. Today creatinine jumped to 2.7, now down to 2.2. nephrology following. Repeat urine protein elevated. Likely due to prerenal azotemia and nsaid use with losartan. Has started to downtrend with saline and holding offending meds. -contIV saline -Renal on board, - Hold losartan - recheck renal function in the morning. #Diabetes: Review of notes shows some hypoglycemia at outside hospital on insulin. - Decrease glargine to 15u BID (was on ), continue SSI, check A1c #Post-operative anemia: S/p 5u PRBC at outside hospital - Xarelto was discontinued, monitor daily -heparin for dvt prophy #Acute hypoxia: Atelectasis - Incentive spirometry at bedside #HTN: BP controlled. - Holding ARB as above, will need to monitor #Obesity: BMI 54. VTE ppx: per ortho(unfractionated heparin BID) Code: full Diet: diabetic Dispo: inpatient for septic knee, LI, start looking at DC planning. Subjective: more comfortable today. optimistic that ortho thought her leg looked good. Objective: Vital Signs Temp Pulse Resp BP Pulse Ox 36.6 C 86 18 179/70 H 96 03/23/19 07:13 03/23/19 07:13 03/23/19 07:13 03/23/19 13:35 03/23/19 07:13 Microbiology 03/19/19 14:48 Gram Stain - Final Knee - Tissue 03/19/19 14:47 Gram Stain - Final Knee - Eswab Laboratory Results 03/22/19 03:30 03/23/19 04:30 03/22/19 03/23/19 03/24/19 05:59 05:59 05:59 Intake Total 1176 1000 200 Output Total 500 850 200 Balance 676 150 0 - Physical Exam Constitutional: no apparent distress, appears nourished, not in pain Eyes: PERRL, anicteric sclera, EOMI Ears, Nose, Mouth, Throat: moist mucous membranes, hearing normal, ears appear normal, no oral mucosal ulcers Cardiovascular: regular rate and rhythym, no murmur, rub, or gallop Respiratory: no respiratory distress, no rales or rhonchi, clear to auscultation Gastrointestinal: normoactive bowel sounds, soft, non-tender abdomen, no palpable masses Genitourinary: no bladder fullness, no bladder tenderness, no renal bruits Skin: no rashes or abrasions, no fluctuance, no induration Musculoskeletal: full muscle strength, no muscle tenderness, normal joint ROM, other (right knee in brace with wound vac in place ) Neurologic: AAOx3, sensation intact bilaterally Psychiatric: interacting appropriately, not anxious, not encephalopathic, thought process linear Lymph, Heme, Immunologic: no cervical LAD, no supraclavicular LAD ICD10 Worksheet Patient Problems: Problems Problem Status Onset Right knee pain Acute
[2019-03-23] MEDS: ONDANSETRON 4 MG/2 ML VIAL IVP PRN (15:54)
--- NOTE | 2019-03-23 18:14 | SOAPPROG ---
SOAP Progress Note Assessment/Plan: Assessment/Plan: 63 yo obese female with DM, HTN, and knee replacement on 02/24/2019 complicated by infection s/p washout and spacer placement on 03/21/2019. Course has been complicated by LI, which is most likely related to ARB + Toradol. Cr was stable 2.7. # LI --Cr now downtrending 2.7 --> 2.2 --avoid NSAIDs --No need for further IVF as eating and drinking # Hyponatremia-Na down a little --start fluid restriction # Infection of knee prosthetic --further management per ID and ortho Subjective: Feeling ok today. She does report some pain. No shortness of breath. Objective: Vital Signs Temp Pulse Resp BP Pulse Ox 36.6 C 89 19 167/73 H 95 03/23/19 15:31 03/23/19 15:31 03/23/19 15:31 03/23/19 15:31 03/23/19 15:31 Laboratory Results 03/22/19 03:30 03/23/19 04:30 03/22/19 03/23/19 03/24/19 05:59 05:59 05:59 Intake Total 1176 1000 200 Output Total 500 850 600 Balance 676 150 -400 General- awake, alert, well-appearing, obese Eyes- anicteric sclera, no conjunctival injection CV- NRRR, no g/m/r, 1+LLE edema Pulm- breathing comfortably on RA, anterior lung antonio clear MSK- brace on RLE ICD10 Worksheet Patient Problems: Problems Problem Status Onset Right knee pain Acute
[2019-03-24] MEDS: HYDROmorphONE/DILAUDID 2 MG TAB PO PRN ×5 (04:06→21:34)
[2019-03-24] MEDS: HYDROmorphONE/DILAUDID 1 MG/ML INJ IVP PRN ×3 (04:17→18:06)
[2019-03-24] MEDS: LEVOTHYROXINE 50 MCG TAB PO SCH (05:58)
[2019-03-24] MEDS: ERTAPENEM 1 GM in NS 100 ML IV SCH (08:32)
[2019-03-24] MEDS: FAMOTIDINE 20 MG TAB PO SCH (08:33)
[2019-03-24] MEDS: HEPARIN 5,000 UNIT/0.5 ML INJ SC SCH ×2 (08:49→21:35)
[2019-03-24] MEDS: DULoxetine 60 MG CAP PO SCH (08:58)
[2019-03-24] MEDS: INSULIN LISPRO 100 UNIT/ML SC SCH ×3 (09:25→18:05)
--- NOTE | 2019-03-24 09:37 | WOCRNPDOC ---
WOCRN Advanced Assessment Note - Skin Integrity Problem, Advanced Assess Right Knee Surgical Wound/Incision Dressing Type: Black Vac Foam, Wound Vac Dressing Description: Intact, Shadowed Closure Description: Sutures, Approximated (90%), Not Approximated (10%) Exudate Amount: Excessive Exudate Characteristic(s): Serosanguinous Integumentary Issue Intervention: Dressing Changed Martha Wound Tissue: Swollen Skin Integrity Problem Comment: Wound vac with some pooled drainage at 6 oclock. Sutures were somewhat macerated from excessive drainage. Area cleaned with ns and gauze. There is a small 0.5x0.5 dehiscence just inferior to the patella. The tunnel runs perpendicular to the wound bed. This was not explored. There is a 2x1 area of slough adjacent and inferior to the tunnel. This area and the area distal to it are all draining significant amount of fluid. The incision superior to the patella s dry with a small area of granulation measuring 5x0.5. All areas were cleaned with ns and gauze. Skin prep applied martha incision. Drape applied over the sutures to the incision line. Incision was covered with adaptic touch, black foam and set to suction at -100 mm Hg continuous with suction at 6 oclock. Vac working with no leaks. Leilani MTZ in room for care and assisted. Dr. French visualized incision before vac replacement. Wound care will follow and round again Wed.
--- NOTE | 2019-03-24 10:12 | PCMIDPN ---
Assessment/Plan: Assessment: 63-year-old woman with an early postoperative infection of the right knee total arthroplasty. She again is growing a multi-drug resistant Proteus mirabilis early postop which suggests this organism is the predominant pathogen here. Continues to tolerate ertapenem without discernible side effect. Nursing reports some breakdown of her surgical wound with replacement of the wound VAC over the weekend into position. Would continue to monitor. 1. Right prosthetic knee joint septic arthritis, acute; polymicrobial 2. MDR Proteus mirabilis (including ESBL production) and Staphylococcus aureus ( MSSA) right prosthetic knee joint infection 3. Status post right prosthetic knee explant with spacer placement 03/10/2019 4. Status post I&D with spacer exchange 03/19/2019 5. Diabetes mellitus, type 2 6. Morbid obesity 7. Acute kidney injury chronic kidney disease Plan: 1. Continue ertapenem 1gm daily; plan through 04.30.19 2. Weekly CBC with differential, BMP, and CRP 3. Contacted Dr. Mejia ([phone]) at [facility] for follow up as previously planned; will update as discharge planning progresses 4. Reviewed in detail potential side effects of beta-lactam antibiotics to include: allergy, rash, nausea, antibiotic-associated diarrhea, Clostridioides difficile colitis. Mitchel Bello MD Infectious Diseases 03/24/19 10:12 Subjective: No fever or chills in the past 24-hours. Tolerating oral diet with solids and liquids. No diarrhea. She has some ongoing nausea. No rash. Appetite improving. She has not ambulated to date. Objective: Vital Signs Temp Pulse Resp BP Pulse Ox 36.7 C 85 16 168/66 H 93 03/24/19 07:28 03/24/19 07:28 03/24/19 07:28 03/24/19 09:00 03/24/19 07:28 Laboratory Results 03/22/19 03:30 03/24/19 06:00 03/23/19 03/24/19 03/25/19 05:59 05:59 05:59 Intake Total 1000 700 Output Total 850 1050 Balance 150 -350 C-Reactive Protein 81.5 mg/L (<10.0) H 03/21/19 00:50 Microbiology 03/19/19 14:48 Knee - Tissue Mycobacterial Smear (ROXY) - Final 03/19/19 14:48 Knee - Tissue Gram Stain - Final 03/19/19 14:47 Knee - Eswab Gram Stain - Final 03/19/19 14:48 Knee - Tissue Mycobacterial Culture - Preliminary 03/19/19 14:48 Knee - Tissue Fungal Culture - Preliminary 03/19/19 14:48 Knee - Tissue Anaerobic Culture - Preliminary Proteus Mirabilis 03/19/19 14:47 Knee - Eswab Anaerobic Culture - Preliminary Proteus Mirabilis Laboratory Tests 03/20/19 03/22/19 03/22/19 04:35 03:30 03:30 WBC 11.51 H 10.62 H Hgb 8.8 L 8.2 L Plt Count 270 301 Absolute Neuts (auto) 9.18 H 8.38 H Absolute Eos (auto) 0.09 0.16 Creatinine 2.7 H 03/24/19 06:00 WBC Hgb Plt Count Absolute Neuts (auto) Absolute Eos (auto) Creatinine 2.0 H Ongoing monitoring for antimicrobial toxicity with: CBC, BMP, interval historical information, and interval physical exam. - Physical Exam General Appearance: no apparent distress, non-toxic EENT: No scleral icterus Respiratory: No respiratory distress, No accessory muscle use Neck: full range of motion, supple Extremities: other (Right lower extremity dressing not taken down) Abdomen: non-tender, soft, No distended, No guarding Skin: No erythema Neuro/Psych: alert, oriented x 3, depressed affect ICD10 Worksheet Patient Problems: Problems Problem Status Onset Right knee pain Acute
--- NOTE | 2019-03-24 10:43 | SOAPPROG ---
SOAP Progress Note Assessment/Plan: Assessment: s/p right knee debridement washout and wound vac application - POD 5 s/p right TKA - on 02-24-19 in [facility] s/p right TKA explant and placement of antibiotic infused spacer - on 03-10-19 in [facility] Plan: Continue Heparin 5000 units SC inj BID Wound care nurses changed incisional wound vac this AM. Continue to follow Continue d/c planning - will likely need more extensive care due to complexity of medical care- likely SNF Continue pain management - currently tylenol, dilaudid, robaxin, dilaudid IV Continue PT efforts - WBAT. No ROM. Keep knee immobilizer in place. ID, nephrology and hospital medicine following - on ertapenem; wound vac on right knee -Staphylococcus aureus (MSSA) and ESBL producing Proteus mirabilis right prosthetic knee joint infection - patient has contact precautions -Hypertension - hydralazine prn Subjective: Patient states her knee is a bit more painful at this time secondary to just doing PT. Her wound vac this morning was changed and Dr. French was able to visualize the wound. A new wound vac was applied. Patient states she is frustrated that she is still in the hospital. She denies SOB, CP, fever, chills , nausea, headache. Objective: Vital Signs Temp Pulse Resp BP Pulse Ox 36.7 C 85 16 168/66 H 93 03/24/19 07:28 03/24/19 07:28 03/24/19 07:28 03/24/19 09:00 03/24/19 07:28 Laboratory Results 03/22/19 03:30 03/24/19 06:00 03/23/19 03/24/19 03/25/19 05:59 05:59 05:59 Intake Total 1000 700 Output Total 850 1050 Balance 150 -350 Patient resting in bed, no acute distress. RLE: Knee immobilizer is lying under the knee, but not closed while the patient lies in bed. New wound vac has been applied, no significant changes in the appearance of the skin surrounding the incision. Calf soft, but tender. She can actively DF and PF her right foot and great toe against resistance. Grossly NVI distally. ICD10 Worksheet Patient Problems: Problems Problem Status Onset Right knee pain Acute - ICD10 Problem Qualifiers (1) Right knee pain Qualifiers: Chronicity: acute Qualified Code(s): M25.561 - Pain in right knee
--- NOTE | 2019-03-24 12:13 | SOAPPROG ---
SOAP Progress Note Assessment/Plan: Assessment/Plan: 63 yo obese female with DM, HTN, and knee replacement on 2018 complicated by infection s/p washout and spacer placement on 03/21/2019 now followed by ortho on antibiotics for LI. LI - Cr up to 2.7, now trending down to 2.0 - avoid NSAIDs - will give IV lasix given hyponatremia and mild hyperkalemia - continue to monitor UO, no indication for HD Hyponatremia - agree with fluid restriction - lasix as above - monitor BMP Hyperkalemia - lasix as above - renal diet - monitor on telemetry HTN/vol -BP's high -holding home ARB -lasix as above -may use hydralazine prn (25mg po) Acidosis -metabolic likely 2/2 to LI -monitor for now Anemia -Hb 8.1g/dl -transfusion per primary team likely for <7g -hold EPO, check iron studies Will continue to follow, please contact if ?'s. 03/24/19 12:59 Subjective: Having some leg pain. Making UO. Normally on lasix at home. Objective: Vital Signs Temp Pulse Resp BP Pulse Ox 36.7 C 85 16 168/66 H 93 03/24/19 07:28 03/24/19 07:28 03/24/19 07:28 03/24/19 09:00 03/24/19 07:28 Laboratory Results 03/22/19 03:30 03/24/19 06:00 03/23/19 03/24/19 03/25/19 05:59 05:59 05:59 Intake Total 1000 700 Output Total 850 1050 Balance 150 -350 Physical Exam - Physical Exam General Appearance: WD/WN, alert EENT: PERRL/EOMI Neck: non-tender, full range of motion, supple Respiratory: decreased breath sounds Cardiac/Chest: regular rate, rhythm, edema Abdomen: normal bowel sounds, non-tender, soft Skin: warm/dry, pallor Extremities: swelling, other (knee wrapped) Neuro/Psych: oriented x 3 ICD10 Worksheet Patient Problems: Problems Problem Status Onset History of ESBL E. coli infection Acute Right knee pain Acute
--- NOTE | 2019-03-24 12:32 | HOSPPROG ---
Hospitalist Progress Note Assessment/Plan: 63yo F with history of obesity, diabetes, HTN, HLD, recent R TKA presents from [facility] for further management of right septic knee. #Infected prosthetic R knee/septic arthritis: R TKA 02/24 s/p explant 03/10 with placement of antibiotic spacer. Joint cultures from 03/10 reportedly grew ESBL+ Proteus mirabilis. -status post washout with replacement of antibiotic spacer in OR -case discussed with ID, stop zosyn, start invanz stope date 04/30/19 -transition pain medications to PO, - Follow intra-op cultures - Has PICC line (RUE, placed 03/10), will need extended course of antibiotics - Wound care, PT/OT, pain control #Acute kidney injury: Cr 0.7 on 03/10, up to 1.4 on 03/18. Today creatinine jumped to 2.7, now down to 2.0. nephrology following. Repeat urine protein elevated. Likely due to prerenal azotemia and nsaid use with losartan. Has started to downtrend with saline and holding offending meds. -told patient to stay hydrated, stop saline -Renal on board, - Hold losartan - recheck renal function in the morning. 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 stop fluids, restrict intake. #Diabetes: Review of notes shows some hypoglycemia at outside hospital on insulin. - Decrease glargine to 15u BID (was on ), continue SSI, check A1c #Post-operative anemia: S/p 5u PRBC at outside hospital - Xarelto was discontinued, monitor daily -heparin for dvt prophy #Acute hypoxia: Atelectasis - Incentive spirometry at bedside #HTN: BP controlled. - Holding ARB as above, will need to monitor #Obesity: BMI 54. VTE ppx: per ortho(unfractionated heparin BID) Code: full Diet: diabetic Dispo: inpatient for septic knee, LI, start looking at DC planning. Subjective: still with leg pain. no other complaints Objective: Vital Signs Temp Pulse Resp BP Pulse Ox 36.7 C 85 16 168/66 H 93 03/24/19 07:28 03/24/19 07:28 03/24/19 07:28 03/24/19 09:00 03/24/19 07:28 Microbiology 03/19/19 14:48 Gram Stain - Final Knee - Tissue 03/19/19 14:47 Gram Stain - Final Knee - Eswab Laboratory Results 03/22/19 03:30 03/24/19 06:00 03/23/19 03/24/19 03/25/19 05:59 05:59 05:59 Intake Total 1000 700 Output Total 850 1050 Balance 150 -350 - Physical Exam Constitutional: no apparent distress, appears nourished, not in pain Eyes: PERRL, anicteric sclera, EOMI Ears, Nose, Mouth, Throat: moist mucous membranes, hearing normal, ears appear normal, no oral mucosal ulcers Cardiovascular: regular rate and rhythym, no murmur, rub, or gallop Respiratory: no respiratory distress, no rales or rhonchi, clear to auscultation Gastrointestinal: normoactive bowel sounds, soft, non-tender abdomen, no palpable masses Genitourinary: no bladder fullness, no bladder tenderness, no renal bruits Skin: no induration (right leg in brace with vac attached. ), other Musculoskeletal: full muscle strength, no muscle tenderness, normal joint ROM Neurologic: AAOx3, sensation intact bilaterally Psychiatric: interacting appropriately, not anxious, not encephalopathic, thought process linear Lymph, Heme, Immunologic: no cervical LAD, no supraclavicular LAD ICD10 Worksheet Patient Problems: Problems Problem Status Onset History of ESBL E. coli infection Acute Right knee pain Acute
[2019-03-24] MEDS ORDERED: SODIUM ZIRCONIUM CYCLOSILICATE 10 GM PACKET PO ONE (12:33)
[2019-03-24] MEDS: SENNOSIDES/DOCUSATE SODIUM TAB PO SCH ×2 (12:56→21:36)
[2019-03-24] MEDS: METHOCARBAMOL 500 MG TAB PO PRN (13:11)
[2019-03-24] MEDS: FUROSEMIDE 20 MG/2 ML VIAL IVP SCH ×2 (13:11→16:49)
[2019-03-24] MEDS: INSULIN GLARGINE 100 UNITS/ML UNIT SC SCH ×2 (13:11→21:35)
--- NOTE | 2019-03-24 15:24 | ASMTCMCOM ---
CM Note CM Note Notes: Spent the day working with yasmine [employer] with [facility] ([phone]), to plan for patient's complicated d/c. Per Oksana, [facility] spanish speaking babysitter, it would not be good for patient to transport to [place] without a wound vac. She is also not eligible for the disposable wound vac (needs a KCI) vac. Lyudmila is going to order a KCI vac and have it delivered to [facility], the local liasion for the SNF group. [facility] will then bring vac to [facility] to have it hooked up before patient discharges. Per ID, patient will need 1g/day Ertapenem with stop date 04/30/19. She will also need bariatric stretcher transport. Case Management will follow. Date Signed: 03/24/2019 03:24 PM Electronically Signed By:Ann Marie Baldwin RN
[2019-03-25] MEDS: METHOCARBAMOL 500 MG TAB PO PRN ×3 (00:45→20:42)
[2019-03-25] MEDS: HYDROmorphONE/DILAUDID 2 MG TAB PO PRN ×4 (03:03→20:42)
[2019-03-25] MEDS: LEVOTHYROXINE 50 MCG TAB PO SCH (05:46)
[2019-03-25] MEDS: INSULIN LISPRO 100 UNIT/ML SC SCH ×3 (08:00→17:45)
[2019-03-25] MEDS: DULoxetine 60 MG CAP PO SCH (08:07)
[2019-03-25] MEDS: FUROSEMIDE 20 MG/2 ML VIAL IVP SCH ×2 (08:07→14:28)
[2019-03-25] MEDS: SENNOSIDES/DOCUSATE SODIUM TAB PO SCH ×2 (08:07→20:43)
[2019-03-25] MEDS: ERTAPENEM 1 GM in NS 100 ML IV SCH (08:07)
[2019-03-25] MEDS: FAMOTIDINE 20 MG TAB PO SCH (08:07)
[2019-03-25] MEDS: INSULIN GLARGINE 100 UNITS/ML UNIT SC SCH ×2 (08:08→20:43)
[2019-03-25] MEDS: HEPARIN 5,000 UNIT/0.5 ML INJ SC SCH ×2 (08:08→20:43)
[2019-03-25] MEDS: HYDROmorphONE/DILAUDID 1 MG/ML INJ IVP PRN (10:06)
[2019-03-25] MEDS ORDERED: DICLOFENAC SODIUM 1% 100 GM GEL TP PRN (10:56)
--- NOTE | 2019-03-25 11:00 | SOAPPROG ---
SOAP Progress Note Assessment/Plan: Assessment: s/p right knee debridement washout and wound vac application - POD 6 s/p right TKA - on 02-24-19 in [facility] s/p right TKA explant and placement of antibiotic infused spacer - on 03-10-19 in [facility] Left shoulder pain - had left RC repair surgery in December Plan: Continue Heparin 5000 units SC inj BID Wound care nurses changed incisional wound vac yesterday. Continue to follow. She will be getting a wound vac sent to [facility] prior to d/c to SNF Continue d/c planning - will likely need more extensive care due to complexity of medical care- SNF Continue pain management - currently tylenol, dilaudid, robaxin, dilaudid IV Continue PT efforts - WBAT. No ROM. Keep knee immobilizer in place. Continue to encourage patient to stand, attempt to walk ID, nephrology and hospital medicine following - on ertapenem (until 04-30-19); wound vac on right knee -Staphylococcus aureus (MSSA) and ESBL producing Proteus mirabilis right prosthetic knee joint infection - patient has contact precautions -Hypertension - hydralazine prn Voltaren gel ordered as needed for left shoulder pain Subjective: Patient reports that she is feeling better today. She was able to stand up during PT earlier this morning. She is complaining of left shoulder pain - she had RC repair surgery in December and was using Voltaren gel. She would like to use Voltaren gel for her left shoulder if possible. Patient denies SOB, CP, fever, chills, nausea. Objective: Vital Signs Temp Pulse Resp BP Pulse Ox 36.6 C 83 19 170/65 H 97 03/25/19 07:52 03/25/19 07:52 03/25/19 07:52 03/25/19 07:52 03/25/19 07:52 Microbiology 03/19/19 14:48 Mycobacterial Smear (ROXY) - Final Knee - Tissue 03/19/19 14:48 Gram Stain - Final Knee - Tissue 03/19/19 14:47 Gram Stain - Final Knee - Eswab Laboratory Results 03/22/19 03:30 03/25/19 03:10 03/24/19 03/25/19 03/26/19 05:59 05:59 05:59 Intake Total 700 700 Output Total 1050 1150 Balance -350 -450 Patient lying in bed, no acute distress. RLE: Wound vac is in place, no significant changes in appearance over the past 2 days. There is some dried blood noted near the wound on the lateral aspect of the knee. Knee immobilizer is open, but it is lying under the knee. Calf is soft but tender likely secondary to neuropathy. She can actively DF and PF the right foot and great toe. Grossly NVI distally. ICD10 Worksheet Patient Problems: Problems Problem Status Onset History of ESBL E. coli infection Acute Right knee pain Acute - ICD10 Problem Qualifiers (1) Right knee pain Qualifiers: Chronicity: acute Qualified Code(s): M25.561 - Pain in right knee
--- NOTE | 2019-03-25 13:10 | SOAPPROG ---
SOAP Progress Note Assessment/Plan: Assessment: 63 yo W with DM, HTN, and knee replacement on 02/24/2019 complicated by infection s/p washout and spacer placement on 03/21/2019 now followed by ortho on antibiotics for LI. LI - Cr up to 2.7, now trending down to 2.0 -volume up and on scheduled IV lasix bid -allow permissive HTN -holding ARB Hyponatremia- Na stable at 128 - agree with fluid restriction, lasix Hyperkalemia -renal diet when taking po -lasix now HTN/vol -BP's high -holding home ARB given LI/hyperK -lasix as above -may use hydralazine prn for SBP >160 Anemia -Hb 8.2 -transfusion per primary team likely for <7g -hold EPO, check iron studies [facility] [phone] 03/25/19 14:09 Subjective: Denies sob, vomiting. Had BM today. Knee painful, meds help. Objective: Vital Signs Temp Pulse Resp BP Pulse Ox 36.6 C 92 18 159/63 H 95 03/25/19 11:33 03/25/19 11:33 03/25/19 11:33 03/25/19 11:33 03/25/19 11:33 Microbiology 03/19/19 14:48 Gram Stain - Final Knee - Tissue 03/19/19 14:47 Gram Stain - Final Knee - Eswab 03/19/19 14:48 Mycobacterial Smear (ROXY) - Final Knee - Tissue Laboratory Results 03/22/19 03:30 03/25/19 03:10 03/24/19 03/25/19 03/26/19 05:59 05:59 05:59 Intake Total 700 700 Output Total 1050 1150 Balance -350 -450 Physical Exam - Physical Exam General Appearance: alert, no apparent distress, other (appears comfortable lying flat) EENT: other (mmm) Respiratory: lungs clear Cardiac/Chest: regular rate, rhythm, other (no rub) Abdomen: normal bowel sounds, non-tender, soft Skin: warm/dry Extremities: other (+edema bilat LE) Neuro/Psych: alert, oriented x 3 ICD10 Worksheet Patient Problems: Problems Problem Status Onset History of ESBL E. coli infection Acute Right knee pain Acute
[2019-03-25] MEDS: traMADol 50 MG TAB PO PRN (14:29)
--- NOTE | 2019-03-25 15:38 | ASMTCMCOM ---
CM Note CM Note Notes: Lyudmila ([phone]) from [facility] called and was concerned the patient and family of patient understand therapy will be very limited due to all her other care needs and Medicaid limiting therapy. She plans to talk to the granddaughter Glo and hopes CM here will also explain this to them. CM will follow. Date Signed: 03/25/2019 03:37 PM Electronically Signed By:Vee Patel LCSW
--- NOTE | 2019-03-25 16:00 | HOSPPROG ---
Hospitalist Progress Note Assessment/Plan: 63yo F with history of obesity, diabetes, HTN, HLD, recent R TKA presents from [facility] for further management of right septic knee. #Infected prosthetic R knee/septic arthritis: R TKA 02/24 s/p explant 03/10 with placement of antibiotic spacer. Joint cultures from 03/10 reportedly grew ESBL+ Proteus mirabilis. -status post washout with replacement of antibiotic spacer in OR -case discussed with ID, stop zosysalty, start maribeth gutiérrez date 04/30/19 - Follow intra-op cultures - Has PICC line (RUE, placed 03/10), will need extended course of antibiotics - Wound care, PT/OT, pain control #Acute kidney injury: Cr 0.7 on 03/10, up to 1.4 on 03/18. Today creatinine jumped to 2.7, now down to 2.0. nephrology following. Repeat urine protein elevated. Likely due to prerenal azotemia and nsaid use with losartan. Has started to downtrend with saline and holding offending meds. -told patient to stay hydrated, stop saline, -Renal on board, - Hold losartan - Follow renal function Hyponatremia- renal following, thought to be due to SIADH. stop fluids, restrict intake. sodium at 128 today. cont restriction. #Diabetes: Review of notes shows some hypoglycemia at outside hospital on insulin. - Decrease glargine to 15u BID (was on ), continue SSI, check A1c #Post-operative anemia: S/p 5u PRBC at outside hospital- H/H slowly trending down to 8/25 today. may be slow loss from wound. Cont to monitor H/H - Xarelto was discontinued, monitor daily -heparin for dvt prophy #Acute hypoxia: Atelectasis, OHS - Incentive spirometry at bedside #HTN: BP controlled. - Holding ARB as above, will need to monitor #Obesity: BMI 54. VTE ppx: per ortho(unfractionated heparin BID) Code: full Diet: diabetic Dispo: inpatient for septic knee, LI, start looking at DC planning. Subjective: very sleepy this afternoon. Some achiness in leg but tolerable. Objective: Vital Signs Temp Pulse Resp BP Pulse Ox 36.8 C 85 19 162/85 H 90 L 03/25/19 15:46 03/25/19 15:46 03/25/19 15:46 03/25/19 15:46 03/25/19 15:46 Microbiology 03/19/19 14:48 Gram Stain - Final Knee - Tissue 03/19/19 14:47 Gram Stain - Final Knee - Eswab 03/19/19 14:48 Mycobacterial Smear (ROXY) - Final Knee - Tissue Laboratory Results 03/22/19 03:30 03/25/19 03:10 03/24/19 03/25/19 03/26/19 05:59 05:59 05:59 Intake Total 700 700 Output Total 1050 1150 500 Balance -350 -450 -500 - Physical Exam Constitutional: no apparent distress, appears nourished, not in pain, obese Eyes: PERRL, anicteric sclera, EOMI Ears, Nose, Mouth, Throat: moist mucous membranes, hearing normal, ears appear normal, no oral mucosal ulcers Cardiovascular: regular rate and rhythym, no murmur, rub, or gallop Respiratory: no respiratory distress, no rales or rhonchi, clear to auscultation Gastrointestinal: normoactive bowel sounds, soft, non-tender abdomen, no palpable masses Genitourinary: no bladder fullness, no bladder tenderness, no renal bruits Skin: no induration, other (right leg in brace with wound vac in place draining serous fluid. ) Musculoskeletal: full muscle strength, no muscle tenderness, normal joint ROM Neurologic: AAOx3, sensation intact bilaterally Psychiatric: interacting appropriately, not anxious, not encephalopathic, thought process linear Lymph, Heme, Immunologic: no cervical LAD, no supraclavicular LAD ICD10 Worksheet Patient Problems: Problems Problem Status Onset History of ESBL E. coli infection Acute Right knee pain Acute
--- NOTE | 2019-03-25 16:07 | PCMIDPN ---
Assessment/Plan: # R septic TKA with MDR proteus, isolate with ESBL - clinically improved. S/p joint explantation and spacer placement (x2). Wound vac in place --patient expressed understand of risks/side effect of ertapenem --stop date 04/29/19 --waiting for wound vac that can be used at [facility], otherwise ready for dc # Unclear risk factors for MDR GNR # ARF: likely due to ARB + Toradal; Cr a bit better at 2.0 --renal function does not warrant dose change in abx meds ertapenem 1g IV daily Subjective: pain w movement RLE, notes that she feels like she is sometimes hallucinating but not bothersome Objective: Vital Signs Temp Pulse Resp BP Pulse Ox 36.8 C 85 19 162/85 H 90 L 03/25/19 15:46 03/25/19 15:46 03/25/19 15:46 03/25/19 15:46 03/25/19 15:46 Microbiology 03/19/19 14:48 Gram Stain - Final Knee - Tissue 03/19/19 14:47 Gram Stain - Final Knee - Eswab 03/19/19 14:48 Mycobacterial Smear (ROXY) - Final Knee - Tissue Laboratory Results 03/22/19 03:30 03/25/19 03:10 03/24/19 03/25/19 03/26/19 05:59 05:59 05:59 Intake Total 700 700 Output Total 1050 1150 500 Balance -350 -450 -500 C-Reactive Protein 81.5 mg/L (<10.0) H 03/21/19 00:50 Laboratory Tests 03/21/19 11:15 Hep Bs Antigen NEGATIVE Hep Bs Antibody NEGATIVE Hep B Core Total Ab NEGATIVE Hepatitis C Antibody NEGATIVE HIV 1&2 Antibody NEGATIVE - Physical Exam General Appearance: alert, no apparent distress, non-toxic EENT: pale conjunctiva, No scleral icterus, No thrush Respiratory: lungs clear (distant breath sounds), No accessory muscle use Cardiac/Chest: regular rate, rhythm Extremities: other (R knee swollen, minimal erythema, mild warmth, wound vac in place, mild tenderness to palpation) Pelvic Exam: bai Skin: warm/dry, No rash Neuro/Psych: alert, normal mood/affect, oriented x 3 - Line/s RUE PICC Lines: No drainage, No erythema - Time Spent With Patient Time Spent with Patient: greater than 25 minutes Time Spent with Patient: Greater than 25 minutes spent on this patients care, greater than 50% of time spent counseling, educating, and coordinating care regarding the above mentioned plan. ICD10 Worksheet Patient Problems: Problems Problem Status Onset History of ESBL E. coli infection Acute Right knee pain Acute
[2019-03-26] MEDS: hydrALAZINE 20 MG/ML VIAL IVP PRN ×2 (01:11→20:44)
[2019-03-26] MEDS: HYDROmorphONE/DILAUDID 2 MG TAB PO PRN ×2 (01:11→05:39)
[2019-03-26] MEDS: LEVOTHYROXINE 50 MCG TAB PO SCH (05:32)
[2019-03-26] MEDS: INSULIN LISPRO 100 UNIT/ML SC SCH ×3 (09:06→16:58)
--- NOTE | 2019-03-26 09:27 | SOAPPROG ---
SOAP Progress Note Assessment/Plan: Assessment: s/p right knee debridement washout and wound vac application - POD 7 s/p right TKA - on 02-24-19 in [facility] s/p right TKA explant and placement of antibiotic infused spacer - on 03-10-19 in [facility] Plan: Continue Heparin 5000 units SC inj BID Wound care nurses changed incisional wound vac on Sunday, should have it changed today. Continue to follow. She will be getting a wound vac sent to [facility] prior to d/c to SNF Continue d/c planning - will likely need more extensive care due to complexity of medical care- SNF Continue pain management - currently tylenol, dilaudid, dilaudid IV. Discontinued Robaxin due to hallucinations (according to her daughter, patient had similar reaction when she took Flexeril in the past) Continue PT efforts - WBAT. No ROM. Keep knee immobilizer in place. Continue to encourage patient to stand, attempt to walk ID, nephrology and hospital medicine following - on ertapenem (until 04-30-19); wound vac on right knee -Staphylococcus aureus (MSSA) and ESBL producing Proteus mirabilis right prosthetic knee joint infection - patient has contact precautions -Hypertension - hydralazine prn Subjective: Patient states her right knee is still sore. Patient reports that Dr. French came into her room this morning and had her sit up on the bed, but he informed me that he has not seen the patient today. Patient also tells me that her " is hiding behind her bed" and he was speak [place] to him as I was leaving the room. According to her nurse, the patient called her daughter this morning and was saying strange things such her was in the room. Her daughter informed the nurse that the patient has taken Flexeril in the past and had strange side effects. Patient denies shortness of breath, chest pain, fever , chills, nausea. Objective: Vital Signs Temp Pulse Resp BP Pulse Ox 36.5 C 87 17 166/66 H 92 03/26/19 08:00 03/26/19 08:00 03/26/19 08:00 03/26/19 08:00 03/26/19 08:00 Microbiology 03/19/19 14:48 Mycobacterial Smear (ROXY) - Final Knee - Tissue 03/19/19 14:48 Gram Stain - Final Knee - Tissue 03/19/19 14:47 Gram Stain - Final Knee - Eswab Laboratory Results 03/22/19 03:30 03/26/19 03:25 03/25/19 03/26/19 03/27/19 05:59 05:59 05:59 Intake Total 700 750 300 Output Total 1150 1225 Balance -450 -475 300 Patient lying in bed, no acute distress. RLE: Wound vac in place, no significant changes in skin surrounding the incision. Wound dressing is also in place over the wound on the lateral aspect of her knee. Lower leg compartments are soft, but tender. She can actively DF and PF her right foot and great toe. Grossly NVI distally. ICD10 Worksheet Patient Problems: Problems Problem Status Onset History of ESBL E. coli infection Acute Right knee pain Acute - ICD10 Problem Qualifiers (1) Right knee pain Qualifiers: Chronicity: acute Qualified Code(s): M25.561 - Pain in right knee
[2019-03-26] MEDS: ERTAPENEM 1 GM in NS 100 ML IV SCH (10:01)
[2019-03-26] MEDS: HEPARIN 5,000 UNIT/0.5 ML INJ SC SCH ×2 (10:02→20:31)
[2019-03-26] MEDS: SENNOSIDES/DOCUSATE SODIUM TAB PO SCH ×2 (10:02→21:26)
[2019-03-26] MEDS: FUROSEMIDE 20 MG/2 ML VIAL IVP SCH ×2 (10:02→15:06)
[2019-03-26] MEDS: DULoxetine 60 MG CAP PO SCH (10:02)
[2019-03-26] MEDS: FAMOTIDINE 20 MG TAB PO SCH (10:02)
[2019-03-26] MEDS: INSULIN GLARGINE 100 UNITS/ML UNIT SC SCH ×2 (10:03→20:31)
--- NOTE | 2019-03-26 12:04 | PCMIDPN ---
Assessment/Plan: Assessment: 63-year-old woman with an early postoperative infection of the right knee total arthroplasty. She again is growing a multi-drug resistant Proteus mirabilis early postop which suggests this organism is the predominant pathogen here. Continues to tolerate ertapenem without discernible side effect. Will fax updated medical records as she is pending discharge to care center in [place]. 1. Right prosthetic knee joint septic arthritis, acute; polymicrobial 2. MDR Proteus mirabilis (including ESBL production) and Staphylococcus aureus ( MSSA) right prosthetic knee joint infection 3. Status post right prosthetic knee explant with spacer placement 03/10/2019 4. Status post I&D with spacer exchange 03/19/2019 5. Diabetes mellitus, type 2 6. Morbid obesity 7. Acute kidney injury chronic kidney disease Plan: 1. Continue ertapenem 1gm daily; plan through 04.30.19 2. Weekly CBC with differential, BMP, and CRP 3. Contacted Dr. Mejia ([phone]) at [facility] for follow up as previously planned; will update as discharge planning progresses 4. Reviewed in detail potential side effects of beta-lactam antibiotics to include: allergy, rash, nausea, antibiotic-associated diarrhea, Clostridioides difficile colitis. Mitchel Bello MD Infectious Diseases 03/26/19 12:03 Subjective: No fever or chills in the past 24-hours. Tolerating oral diet with solids and liquids. No diarrhea, nausea, or other GI symptoms. No rash. Appetite improving but not back to baseline. Not ambulating to date. Improved since admission but not back to baseline health. Objective: Vital Signs Temp Pulse Resp BP Pulse Ox 36.3 C 87 17 175/78 H 93 03/26/19 11:39 03/26/19 11:39 03/26/19 11:39 03/26/19 11:39 03/26/19 11:39 Microbiology 03/19/19 14:48 Mycobacterial Smear (ROXY) - Final Knee - Tissue 03/19/19 14:48 Gram Stain - Final Knee - Tissue 03/19/19 14:47 Gram Stain - Final Knee - Eswab Laboratory Results 03/22/19 03:30 03/26/19 03:25 03/25/19 03/26/19 03/27/19 05:59 05:59 05:59 Intake Total 700 750 300 Output Total 1150 1225 Balance -450 -475 300 C-Reactive Protein 81.5 mg/L (<10.0) H 03/21/19 00:50 Medications Generic Name Dose Route Start Last Admin Trade Name Maren PRN Reason Stop Dose Admin Ertapenem 1 gm/ Sodium 100 mls @ 200 mls/hr 03/20/19 13:45 03/26/19 10:01 Chloride IV 04/19/19 13:44 100 mls DAILY SABINO Protocol Microbiology 03/19/19 14:48 Knee - Tissue Mycobacterial Smear (ROXY) - Final 03/19/19 14:48 Knee - Tissue Gram Stain - Final 03/19/19 14:47 Knee - Eswab Gram Stain - Final 03/19/19 14:48 Knee - Tissue Mycobacterial Culture - Preliminary 03/19/19 14:48 Knee - Tissue Fungal Culture - Preliminary 03/19/19 14:48 Knee - Tissue Anaerobic Culture - Preliminary Proteus Mirabilis 03/19/19 14:47 Knee - Eswab Fungal Culture - Preliminary 03/19/19 14:47 Knee - Eswab Anaerobic Culture - Preliminary Proteus Mirabilis Laboratory Tests 03/20/19 03/21/19 03/21/19 04:35 00:50 00:50 WBC 11.51 H Hgb 8.4 L Plt Count 270 Creatinine C-Reactive Protein 81.5 H 03/22/19 03/26/19 03:30 03:25 WBC 10.62 H Hgb 8.2 L Plt Count 301 Creatinine 1.7 H C-Reactive Protein Ongoing monitoring for antimicrobial toxicity with: CBC, BMP, interval historical information, and interval physical exam. - Physical Exam General Appearance: no apparent distress, non-toxic EENT: No scleral icterus Respiratory: No respiratory distress, No accessory muscle use Neck: full range of motion, supple Skin: other (Right lower extremity remains and postoperative dressing with wound VAC in place), No erythema Neuro/Psych: alert, normal mood/affect, oriented x 3, No confused - Time Spent With Patient Time Spent with Patient: greater than 25 minutes Time Spent with Patient: Greater than 25 minutes spent on this patients care, greater than 50% of time spent counseling, educating, and coordinating care regarding the above mentioned plan. ICD10 Worksheet Patient Problems: Problems Problem Status Onset History of ESBL E. coli infection Acute Right knee pain Acute
--- NOTE | 2019-03-26 12:07 | PDIAF ---
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 PICC Care - Routine: Yes - Orders Isolation Type: Contact Isolation - Labs/Radiology CBC w/diff Date: 03/31/19 (Weekly while on ertapenem) CMP Date: 03/31/19 (Weekly while on ertapenem) CRP Date: 03/31/19 (Weekly while on ertapenem) Call or Fax Lab and Imaging Results to: Ad Mejia MD, , phone [phone] - Follow Up Care Current Providers and Referrals: Clayton French MD [Emergency Provider] - NONE *PRIMARY CARE P,. [Primary Care Provider] -
--- NOTE | 2019-03-26 13:36 | SOAPPROG ---
SOAP Progress Note Assessment/Plan: Assessment: 63 yo W with DM, HTN, and knee replacement on 02/24/2019 complicated by infection s/p washout and spacer placement on 03/21/2019 now followed by ortho on antibiotics for LI. LI - Cr up to 2.7, now trending down to 1.7 -volume up and on scheduled IV lasix bid- continue for now (can switch to oral when ready for d/c) -allow permissive HTN -holding ARB-- can likely restart ARB tomorrow if Cr/K stable (would not restart HCTZ given hyponatremia) Hyponatremia- Na stable at 130, hypervolemic -while hypervolemic, she was on SSRI and thiazide as outpt-- holding HCTZ. -check urine Osm - agree with fluid restriction, lasix Hyperkalemia -renal diet when taking po -lasix -cortisol ok and BP on high side HTN/vol -BP's high -holding home ARB given LI/hyperK-- can restart maybe tomorrow if Cr stable and K better. I reviewed with her need to follow low K diet -lasix as above -may use hydralazine prn for SBP >160 Anemia -Hb 8.2 -transfusion per primary team likely for <7g -hold EPO, check iron studies [facility] [phone] 03/26/19 13:37 Subjective: Feeling better overall, hoping to go home soon. +LE edema, no sob, n/v. Cr better.Reviewed need for low K diet. Objective: Vital Signs Temp Pulse Resp BP Pulse Ox 36.3 C 87 17 175/78 H 93 03/26/19 11:39 03/26/19 11:39 03/26/19 11:39 03/26/19 11:39 03/26/19 11:39 Microbiology 03/19/19 14:47 Gram Stain - Final Knee - Eswab 03/19/19 14:48 Gram Stain - Final Knee - Tissue 03/19/19 14:48 Mycobacterial Smear (ROXY) - Final Knee - Tissue Laboratory Results 03/22/19 03:30 03/26/19 03:25 03/25/19 03/26/19 03/27/19 05:59 05:59 05:59 Intake Total 700 750 300 Output Total 1150 1225 Balance -450 -475 300 Physical Exam - Physical Exam General Appearance: alert, no apparent distress EENT: other (mmm) Respiratory: lungs clear (ant bilat) Cardiac/Chest: regular rate, rhythm, other (no rub) Abdomen: normal bowel sounds, non-tender, soft Skin: warm/dry Extremities: other (+edema bilat LE, warm) Neuro/Psych: alert, oriented x 3 ICD10 Worksheet Patient Problems: Problems Problem Status Onset History of ESBL E. coli infection Acute Right knee pain Acute
--- NOTE | 2019-03-26 16:49 | HOSPPROG ---
Hospitalist Progress Note Assessment/Plan: 63yo F with history of obesity, diabetes, HTN, HLD, recent R TKA presents from [facility] for further management of right septic knee. #Infected prosthetic R knee/septic arthritis: R TKA 02/24 s/p explant 03/10 with placement of antibiotic spacer. Joint cultures from 03/10 reportedly grew ESBL+ Proteus mirabilis. -status post washout with replacement of antibiotic spacer in OR -case discussed with ID, stop zosyn, start invanz, stope date 04/30/19 - Follow intra-op cultures - Has PICC line (RUE, placed 03/10), will need extended course of antibiotics - Wound care, PT/OT, pain control #Acute kidney injury: creatinine peaked at 2.7 now back down to 1.7. presumed to be prerenal exacerbated by nsaids and ARB use. -told patient to stay hydrated, stop saline, -Renal on board, - Hold losartan - Follow renal function Hyperkalemia- on lasix, cortisol ok. repeat in am. 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 stop fluids, restrict intake. sodium at 128 today. cont restriction. #Diabetes: Review of notes shows some hypoglycemia at outside hospital on insulin. - Decrease glargine to 15u BID (was on ), continue SSI, check A1c Fluid/edema- on IV lasix. may need po on dc. cont daily weights, and I/O #Post-operative anemia: S/p 5u PRBC at outside hospital- H/H slowly trending down to 8/25 today. may be slow loss from wound. Cont to monitor H/H - Xarelto was discontinued, monitor daily -heparin for dvt prophy #Acute hypoxia: Atelectasis, OHS - Incentive spirometry at bedside #HTN: BP controlled. - Holding ARB as above, will need to monitor Encephalopathy- urinalysis pending, no fevers, or other indicators of untreated infection. On invanz already for knee. may be related to pain medications which haev been reduced. #Obesity: BMI 54. VTE ppx: per ortho(unfractionated heparin BID) Code: full Diet: diabetic Dispo: inpatient for septic knee, LI, start looking at DC planning. Subjective: patient sleeping, tired. she is aware of her confusion. Objective: Vital Signs Temp Pulse Resp BP Pulse Ox 36.6 C 83 16 158/65 H 90 L 03/26/19 15:19 03/26/19 15:19 03/26/19 15:19 03/26/19 15:19 03/26/19 15:19 Microbiology 03/19/19 14:47 Gram Stain - Final Knee - Eswab 03/19/19 14:48 Gram Stain - Final Knee - Tissue 03/19/19 14:48 Mycobacterial Smear (ROXY) - Final Knee - Tissue Laboratory Results 03/22/19 03:30 03/26/19 03:25 03/25/19 03/26/19 03/27/19 05:59 05:59 05:59 Intake Total 700 750 300 Output Total 1150 1225 400 Balance -450 475 -100 - Physical Exam Constitutional: chronically ill appearing, obese Eyes: PERRL, anicteric sclera, EOMI Ears, Nose, Mouth, Throat: moist mucous membranes, hearing normal, ears appear normal, no oral mucosal ulcers Cardiovascular: regular rate and rhythym, no murmur, rub, or gallop Respiratory: no respiratory distress, no rales or rhonchi, clear to auscultation Gastrointestinal: normoactive bowel sounds, soft, non-tender abdomen, no palpable masses Genitourinary: no bladder fullness, no bladder tenderness, no renal bruits Skin: other (right knee in brace with serous drainage. ) Musculoskeletal: generalized weakness, other Neurologic: AAOx3, sensation intact bilaterally Psychiatric: interacting appropriately, not anxious, not encephalopathic, thought process linear Lymph, Heme, Immunologic: no cervical LAD, no supraclavicular LAD ICD10 Worksheet Patient Problems: Problems Problem Status Onset History of ESBL E. coli infection Acute Right knee pain Acute
--- NOTE | 2019-03-26 16:52 | ASMTCMCOM ---
CM Note CM Note Notes: Late today Lyudmila Turk with [facility] ([phone]) called to report the [facility] just financially denied pt due to low Medicaid reimbursement pt is "too expensive" with IV antibiotics, wound vac, bariatric bed/mattress, rehab needs. [facility] had been pt d/c plan, this is frustrating this took so long when it had appeared [facility] could accept pt, Lyudmila reports it took this long to winters out the pt drugs. If pt improves, no longer needing wound vac or IV antibiotics [facility] can reconsider. Updates sent to other SNFs who previously reviewed pt. D/c plan of care: SNF and which is now TBD Date Signed: 03/26/2019 04:51 PM Electronically Signed By:MELA Coley
--- NOTE | 2019-03-26 23:26 | WOCRNPDOC ---
WOCRN Advanced Assessment Note - Skin Integrity Problem, Advanced Assess Right Knee Surgical Wound/Incision Dressing Type: Adaptic Touch, Black Vac Foam, Wound Vac Dressing Description: Clean/Dry, Intact Closure Description: Approximated Exudate Amount: Excessive Exudate Color: Red Exudate Characteristic(s): Serosanguinous Integumentary Issue Intervention: Dressing Changed Martha Wound Swelling: Moderate Wound Edges: Attached (90%), Not Attached (10%) Skin Integrity Problem Comment: Wound cleaned with NS and gauze. Incision continues to have an area of concern over the patella. The incision has a small open area here that I did not explore. Lateral to this there is a soft area that currently appears macerated. Skin prep applied to martha-wound tissue and sutures draped with drape. The incision itself was covered with Adaptic Touch. I placed the suction in the center of the wound and achieved good suction at - 100 mmHg. Vac changed performed with Rochelle SUERO. Of note, canister on vac was nearly full. BIBI Crandall to change canister. Wound care will round again on Sunday.
[2019-03-27] MEDS: ACETAMINOPHEN 325 MG TAB PO PRN (00:45)
[2019-03-27] MEDS: hydrALAZINE 20 MG/ML VIAL IVP PRN ×2 (02:54→09:09)
[2019-03-27 03:16] LABS: PLATELET COUNT 339 10^3/uL (150-400)
[2019-03-27] MEDS: LEVOTHYROXINE 50 MCG TAB PO SCH (05:17)
[2019-03-27] MEDS: HEPARIN 5,000 UNIT/0.5 ML INJ SC SCH ×2 (08:26→22:14)
[2019-03-27] MEDS: FUROSEMIDE 20 MG/2 ML VIAL IVP SCH ×3 (08:27→16:24)
[2019-03-27] MEDS: DULoxetine 60 MG CAP PO SCH (08:27)
[2019-03-27] MEDS: FAMOTIDINE 20 MG TAB PO SCH (08:27)
[2019-03-27] MEDS: ERTAPENEM 1 GM in NS 100 ML IV SCH (08:38)
[2019-03-27] MEDS: INSULIN GLARGINE 100 UNITS/ML UNIT SC SCH ×2 (09:08→23:37)
[2019-03-27] MEDS: INSULIN LISPRO 100 UNIT/ML SC SCH ×3 (09:08→17:44)
[2019-03-27] MEDS: SENNOSIDES/DOCUSATE SODIUM TAB PO SCH ×2 (09:20→22:09)
[2019-03-27] MEDS ORDERED: SODIUM ZIRCONIUM CYCLOSILICATE 10 GM PACKET PO ONE (09:33)
--- NOTE | 2019-03-27 11:31 | PCMIDPN ---
Assessment/Plan: Assessment: 63-year-old woman with an early postoperative infection of the right knee total arthroplasty. She again is growing a multi-drug resistant Proteus mirabilis early postop which suggests this organism is the predominant pathogen here. Discharge planning delayed due to facility unable to accept patient after full review needs. She has no discernible side effects from ertapenem to date will continue with this plan therapy. Overall the area of skin around the wound VAC looks quite healthy. 1. Right prosthetic knee joint septic arthritis, acute; polymicrobial; stable 2. MDR Proteus mirabilis (including ESBL production) and Staphylococcus aureus ( MSSA) right prosthetic knee joint infection 3. Status post right prosthetic knee explant with spacer placement 03/10/2019 4. Status post I&D with spacer exchange 03/19/2019 5. Diabetes mellitus, type 2; stable 6. Morbid obesity; stable 7. Acute kidney injury on chronic kidney disease; improving Plan: 1. Continue ertapenem 1gm daily; plan through .04.13 2. Weekly CBC with differential, BMP, and CRP 3. Contacted Dr. Mejia ([phone]) at [facility] for follow up as previously planned; will update as discharge planning progresses 4. Reviewed in detail potential side effects of beta-lactam antibiotics to include: allergy, rash, nausea, antibiotic-associated diarrhea, Clostridioides difficile colitis. Mitchel Bello MD Infectious Diseases 03/27/19 11:32 Subjective: No fever or chills in the past 24-hours. Tolerating oral diet with solids and liquids. No diarrhea. No rash. Appetite remains poor with early satiety and abnormal taste foods compared to usual. Not ambulating postoperatively to date. Improved since admission but not back to baseline health. Discharge on hold as facility unable to accept. Objective: Vital Signs Temp Pulse Resp BP Pulse Ox 36.6 C 90 18 186/72 H 93 03/27/19 07:57 03/27/19 09:01 03/27/19 07:57 03/27/19 09:09 03/27/19 07:57 Microbiology 03/19/19 14:47 Gram Stain - Final Knee - Eswab 03/19/19 14:48 Gram Stain - Final Knee - Tissue Laboratory Results 03/27/19 03:00 03/27/19 03:00 03/26/19 03/27/19 03/28/19 05:59 05:59 05:59 Intake Total 750 450 Output Total 1228 1125 Balance -475 -675 C-Reactive Protein 81.5 mg/L (<10.0) H 03/21/19 00:50 Medications Generic Name Dose Route Start Last Admin Trade Name Freq PRN Reason Stop Dose Admin Ertapenem 1 gm/ Sodium 100 mls @ 200 mls/hr 03/20/19 13:45 03/27/19 08:38 Chloride IV 04/19/19 13:44 100 mls DAILY SABINO Protocol Microbiology 03/19/19 14:48 Knee - Tissue Mycobacterial Smear (ROXY) - Final 03/19/19 14:48 Knee - Tissue Gram Stain - Final 03/19/19 14:47 Knee - Eswab Gram Stain - Final 03/19/19 14:48 Knee - Tissue Mycobacterial Culture - Preliminary 03/19/19 14:48 Knee - Tissue Fungal Culture - Preliminary 03/19/19 14:48 Knee - Tissue Anaerobic Culture - Preliminary Proteus Mirabilis 03/19/19 14:47 Knee - Eswab Fungal Culture - Preliminary 03/19/19 14:47 Knee - Eswab Anaerobic Culture - Preliminary Proteus Mirabilis Laboratory Tests 03/22/19 03/27/19 03/27/19 03:30 03:00 03:00 WBC 10.62 H 9.26 Hgb 8.2 L 8.1 L Absolute Neuts (auto) 8.38 H 7.75 H Absolute Lymphs (auto) 1.05 0.68 L Absolute Eos (auto) 0.16 0.06 Creatinine 1.6 H Ongoing monitoring for antimicrobial toxicity with: CBC, BMP, interval historical information, and interval physical exam. Discussed treatment/diagnostic testing and testing results with admitting provider(s). Personally reviewed interval laboratory results. - Physical Exam General Appearance: no apparent distress, non-toxic EENT: No scleral icterus Respiratory: No respiratory distress, No accessory muscle use, No wheezing Neck: full range of motion, supple Extremities: No inflammation Skin: other (Right lower extremity skin surrounding wound VAC site without erythema, induration, or fluctuance areas; no rash elsewhere on the body) Neuro/Psych: alert, normal mood/affect, oriented x 3, No confused ICD10 Worksheet Patient Problems: Problems Problem Status Onset History of ESBL E. coli infection Acute Right knee pain Acute
[2019-03-27] MEDS: amLODIPine BESYLATE 5 MG TAB PO SCH (12:07)
--- NOTE | 2019-03-27 13:57 | HOSPPROG ---
Hospitalist Progress Note Assessment/Plan: 63yo F with history of obesity, diabetes, HTN, HLD, recent R TKA presents from [facility] for further management of right septic knee. #Infected prosthetic R knee/septic arthritis: R TKA 02/24 s/p explant 03/10 with placement of antibiotic spacer. Joint cultures from 03/10 reportedly grew ESBL+ Proteus mirabilis. -status post washout with replacement of antibiotic spacer in OR -cultures positive for proteus mirabilis (ESBL) and MSSA -case discussed with ID, stop zosyn, start invanz, stope date 04/30/19 - Follow intra-op cultures - Has PICC line (RUE, placed 03/10), will need extended course of antibiotics - Wound care, PT/OT, pain control -awaiting wound vac to arrive for her to dc to SNF #Acute kidney injury: creatinine peaked at 2.7 now back down to 1.7. presumed to be prerenal exacerbated by nsaids and ARB use. -told patient to stay hydrated, stop saline, -Renal on board, - Hold losartan - Follow renal function Hyperkalemia- despite lasix. I ordered a dose of sodium zirconium today and will repeat K later today Hyponatremia- renal following, thought to be due to SIADH. stop fluids, restrict intake. she seems to be responding as Na up to 132. #Diabetes: Review of notes shows some hypoglycemia at outside hospital on insulin. - Decrease glargine to 15u BID (was on ), continue SSI, check A1c Fluid/edema- on IV lasix. may need po on dc. cont daily weights, and I/O #Post-operative anemia: S/p 5u PRBC at outside hospital- H/H slowly trending down to 8/24 today. may be slow loss from wound. Cont to monitor H/H - Xarelto was discontinued, monitor daily -heparin for dvt prophy #Acute hypoxia: Atelectasis, OHS - Incentive spirometry at bedside #HTN: BP controlled. - Holding ARB as above, will need to monitor Encephalopathy- urinalysis pending, no fevers, or other indicators of untreated infection. On invanz already for knee. may be related to pain medications which haev been reduced. #Obesity: BMI 54. VTE ppx: per ortho(unfractionated heparin BID) Code: full Diet: diabetic Dispo: basically waiting for wound vac to arrive, so she can be discharged pending medical stability Subjective: still tired, intermittent confusion. Objective: Vital Signs Temp Pulse Resp BP Pulse Ox 36.7 C 93 18 160/69 H 93 03/27/19 11:51 03/27/19 11:51 03/27/19 11:51 03/27/19 11:51 03/27/19 11:51 Microbiology 03/19/19 14:48 Gram Stain - Final Knee - Tissue 03/19/19 14:47 Gram Stain - Final Knee - Eswab Laboratory Results 03/27/19 03:00 03/27/19 03:00 03/26/19 03/27/19 03/28/19 05:59 05:59 05:59 Intake Total 750 450 Output Total 1225 1125 Balance -657 -781 - Physical Exam Constitutional: chronically ill appearing, obese Eyes: PERRL, anicteric sclera, EOMI Ears, Nose, Mouth, Throat: moist mucous membranes, hearing normal, ears appear normal, no oral mucosal ulcers Cardiovascular: regular rate and rhythym, no murmur, rub, or gallop Respiratory: no respiratory distress, no rales or rhonchi, clear to auscultation Gastrointestinal: normoactive bowel sounds, soft, non-tender abdomen, no palpable masses Genitourinary: no bladder fullness, no bladder tenderness, no renal bruits Skin: no rashes or abrasions, no fluctuance, no induration Musculoskeletal: generalized weakness Neurologic: AAOx3, sensation intact bilaterally Psychiatric: interacting appropriately, not anxious, not encephalopathic, thought process linear Lymph, Heme, Immunologic: no cervical LAD, no supraclavicular LAD ICD10 Worksheet Patient Problems: Problems Problem Status Onset History of ESBL E. coli infection Acute Right knee pain Acute
--- NOTE | 2019-03-27 14:54 | SOAPPROG ---
SOAP Progress Note Assessment/Plan: Assessment: LI, getting better, good UOP infected Knee, s/p removal of hardware/abx hyperkalemia, mild to moderate edema Plan: no urgent HD needs continue ABX diurese, help with fluid and K watch K in diet 03/27/19 14:51 Subjective: spirits good all things considered had a bit of a headache today, better this afternoon no cp sob nausea or vomiting sleeping OK energy not great Objective: Vital Signs Temp Pulse Resp BP Pulse Ox 36.7 C 93 18 160/69 H 93 03/27/19 11:51 03/27/19 11:51 03/27/19 11:51 03/27/19 11:51 03/27/19 11:51 Microbiology 03/19/19 14:48 Gram Stain - Final Knee - Tissue 03/19/19 14:47 Gram Stain - Final Knee - Eswab Laboratory Results 03/27/19 03:00 03/27/19 03:00 03/26/19 03/27/19 03/28/19 05:59 05:59 05:59 Intake Total 750 450 Output Total 1225 1125 Balance -475 -675 Physical Exam - Physical Exam General Appearance: alert, obese Neck: normal inspection, other (thick) Respiratory: No rales, No rhonchi, No wheezing Cardiac/Chest: regular rate, rhythm, edema, No systolic murmur Abdomen: normal bowel sounds, non-tender, soft Skin: warm/dry Extremities: swelling Neuro/Psych: alert, normal mood/affect, oriented x 3 ICD10 Worksheet Patient Problems: Problems Problem Status Onset History of ESBL E. coli infection Acute Right knee pain Acute
--- NOTE | 2019-03-27 16:09 | SOAPPROG ---
SOAP Progress Note Assessment/Plan: Assessment: s/p right knee debridement washout and wound vac application - POD 8 s/p right TKA - on 02-24-19 in [facility] s/p right TKA explant and placement of antibiotic infused spacer - on 03-10-19 in [facility] Small open sore at the superior aspect of the gluteal cleft, first noted today - calazime applied Plan: Continue Heparin 5000 units SC inj BID Wound care nurses changed incisional wound vac changed yesterday. Continue to follow. She will be getting a wound vac sent to [facility] prior to d/c to SNF Continue d/c planning - will likely need more extensive care due to complexity of medical care- SNF Continue pain management - currently tylenol, dilaudid, dilaudid IV. Discontinued Robaxin due to hallucinations (according to her daughter, patient had similar reaction when she took Flexeril in the past). Seems less confused today Continue PT efforts - WBAT. No ROM. Keep knee immobilizer in place. Continue to encourage patient to stand, attempt to walk ID, nephrology and hospital medicine following - on ertapenem (until 04-30-19); wound vac on right knee -Staphylococcus aureus (MSSA) and ESBL producing Proteus mirabilis right prosthetic knee joint infection - patient has contact precautions -Hypertension - hydralazine prn Subjective: Patient states the right knee is still sore, but pain is tolerable. She feels less confused today and acknowledges that she thought her was in her room yesterday and knows that he was not here. Patient denies SOB, CP, fever, chills. Objective: Vital Signs Temp Pulse Resp BP Pulse Ox 36.7 C 93 18 160/69 H 93 03/27/19 11:51 03/27/19 11:51 03/27/19 11:51 03/27/19 11:51 03/27/19 11:51 Microbiology 03/19/19 14:48 Gram Stain - Final Knee - Tissue 03/19/19 14:47 Gram Stain - Final Knee - Eswab Laboratory Results 03/27/19 03:00 03/27/19 03:00 03/26/19 03/27/19 03/28/19 05:59 05:59 05:59 Intake Total 750 450 Output Total 1225 1125 Balance -475 -675 Patient lying in bed, no acute distress. She is starting to develop a small open wound at the superior aspect of the gluteal cleft. No purulent drainage. RLE: Wound vac in place. No significant changes in the appearance of the skin surrounding the incision. Lower leg compartments are soft, but tender. She can actively DF and PF her right foot and great toe against resistance. Grossly NVI distally. ICD10 Worksheet Patient Problems: Problems Problem Status Onset History of ESBL E. coli infection Acute Right knee pain Acute - ICD10 Problem Qualifiers (1) Right knee pain Qualifiers: Chronicity: acute Qualified Code(s): M25.561 - Pain in right knee
[2019-03-27] MEDS: traMADol 50 MG TAB PO PRN ×2 (16:23→22:23)
--- NOTE | 2019-03-27 16:49 | ASMTCMCOM ---
CM Note CM Note Notes: It appears [facility] can accept pt. [facility] has worked with on financial components, agreeing to pay for wound vac and half of pt IV antibiotics which were approved by CM director Ras. [facility] was alerted to get the pt PASRR and ULTC to [facility]. Kimber with [employer] was alerted to assist with ordering the wound vac. Pt is disappointed she will not return to [facility] but is also understanding. Of note: [facility] is still reviewing pt but Bing with [facility] reports they may not be able to financially approve her because she may not qualify for the Medicaid LTC, they wonder with her co-morbidities if pt will get approved so they will review. [facility] declined pt even if [facility] pay for wound vac. D/c plan of care: Lindy Coates hopefully tomorrow Date Signed: 03/27/2019 04:48 PM Electronically Signed By:MELA Coley
[2019-03-27] MEDS: TEMAZEPAM 15 MG CAP PO PRN (22:09)
[2019-03-28] MEDS: HYDROmorphONE/DILAUDID 2 MG TAB PO PRN ×2 (00:08→11:29)
[2019-03-28] MEDS: ACETAMINOPHEN 325 MG TAB PO PRN ×2 (05:26→15:31)
[2019-03-28] MEDS: LEVOTHYROXINE 50 MCG TAB PO SCH (05:26)
--- NOTE | 2019-03-28 07:39 | SOAPPROG ---
SOAP Progress Note Assessment/Plan: Assessment: LI, getting better, good UOP infected Knee, s/p removal of hardware/abx hyperkalemia, mild to moderate edema, increased lasix Plan: creat stable at 1.6-1.7 past 3 days, a bit higher than her baseline, but still much better than admit continue ABX diurese, help with fluid and K watch K in diet Renal signing off 03/27/19 14:51 03/28/19 07:36 Subjective: slept OK, no cp sob nausea or vomiting spirits good some pain in her knee when she moves it, o/w no pain Objective: Vital Signs Temp Pulse Resp BP Pulse Ox 36.6 C 83 16 159/78 H 97 03/28/19 04:00 03/28/19 04:00 03/28/19 04:00 03/28/19 04:00 03/28/19 04:00 Microbiology 03/19/19 14:48 Gram Stain - Final Knee - Tissue 03/19/19 14:47 Gram Stain - Final Knee - Eswab Laboratory Results 03/27/19 03:00 03/28/19 04:30 03/27/19 03/28/19 03/29/19 05:59 05:59 05:59 Intake Total 450 900 Output Total 1125 1225 Balance -675 -325 Physical Exam - Physical Exam General Appearance: alert, obese Neck: normal inspection Respiratory: No rales, No rhonchi, No wheezing Cardiac/Chest: regular rate, rhythm, edema Abdomen: normal bowel sounds, non-tender, soft Skin: warm/dry Neuro/Psych: alert, normal mood/affect, oriented x 3 ICD10 Worksheet Patient Problems: Problems Problem Status Onset History of ESBL E. coli infection Acute Right knee pain Acute
[2019-03-28] MEDS: DULoxetine 60 MG CAP PO SCH (08:10)
[2019-03-28] MEDS: FAMOTIDINE 20 MG TAB PO SCH (08:11)
[2019-03-28] MEDS: amLODIPine BESYLATE 5 MG TAB PO SCH (08:11)
[2019-03-28] MEDS: INSULIN GLARGINE 100 UNITS/ML UNIT SC SCH (08:12)
[2019-03-28] MEDS: HEPARIN 5,000 UNIT/0.5 ML INJ SC SCH (08:26)
[2019-03-28] MEDS: ERTAPENEM 1 GM in NS 100 ML IV SCH (08:36)
[2019-03-28] MEDS: INSULIN LISPRO 100 UNIT/ML SC SCH ×2 (08:51→12:34)
[2019-03-28] MEDS ORDERED: FUROSEMIDE 40 MG/4 ML VIAL IVP SCH (09:00)
[2019-03-28] MEDS: SENNOSIDES/DOCUSATE SODIUM TAB PO SCH (09:19)
[2019-03-28] MEDS ORDERED: INSULIN GLARGINE 100 UNITS/ML UNIT SC SCH (10:50)
--- NOTE | 2019-03-28 10:52 | HOSPPROG ---
Hospitalist Progress Note Assessment/Plan: #Infected prosthetic R knee/septic arthritis: R TKA 02/24 s/p explant 03/10 with placement of antibiotic spacer. Joint cultures from 03/10 reportedly grew ESBL+ Proteus mirabilis. -status post washout with replacement of antibiotic spacer in OR, Dr French -cultures positive for proteus mirabilis (ESBL) and MSSA -per ID, stop zosyn, start invanz, stop date 04/30/19 - Has PICC line (RUE, placed 03/10), will need extended course of antibiotics - Wound care, PT/OT, pain control -when wound vac blaced will be able to discharge to SNF per ID/ortho #Acute kidney injury: creatinine peaked at 2.7 but improving slowly, presumed to be prerenal exacerbated by nsaids and ARB use -Rappreciate nephrology assistance - Hold losartan - Follow renal function Hyperkalemia -improved Hyponatremia -improved -renal following, thought to be due to SIADH -stopped fluids, restrict intake #type 2 Diabetes: Review of notes shows some hypoglycemia at outside hospital on insulin. - Decrease glargine to 15u BID (was on ) -continue SSI Fluid/edema - on IV lasix -cont daily weights, and I/O #Post-operative anemia: S/p 5u PRBC at outside hospital - H/H slowly trending down -Cont to monitor H/H - Xarelto was discontinued -heparin for dvt prophy #Acute hypoxia: Atelectasis, OHS - Incentive spirometry at bedside #HTN: BP controlled. - Holding ARB as above, will need to monitor # Encephalopathy, resolved -likely from pain medications which have been reduced. #Obesity: BMI 54. VTE ppx: per ortho (unfractionated heparin BID) Code: full Diet: diabetic Dispo: waiting for wound vac to arrive, then discharge to SNF Subjective: Sleeping but awakens easily. Denies CP/SOB/N/V. No specific concerns today Objective: Vital Signs Temp Pulse Resp BP Pulse Ox 97.9 F 83 16 174/72 H 97 03/28/19 04:00 03/28/19 04:00 03/28/19 04:00 03/28/19 08:11 03/28/19 04:00 Microbiology 03/19/19 14:48 Gram Stain - Final Knee - Tissue 03/19/19 14:47 Gram Stain - Final Knee - Eswab Laboratory Results 03/27/19 03:00 03/28/19 04:30 03/26/19 03/27/19 03/28/19 11:59 11:59 11:59 Intake Total 1050 150 900 Output Total 1225 1125 1225 [facility] -175 -975 -325 - Time Spent With Patient Time Spent with Patient: greater than 35 minutes (reviewing chart/floor time as new pt to me) Time Spent with Patient: Greater than 35 minutes spent on this patients care, greater than 50% of time spent counseling, educating, and coordinating care regarding the above mentioned plan. - Physical Exam Constitutional: no apparent distress, obese Eyes: anicteric sclera Ears, Nose, Mouth, Throat: moist mucous membranes, hearing normal Cardiovascular: regular rate and rhythym Respiratory: no respiratory distress, no rales or rhonchi, reduced air movement (throughout) Gastrointestinal: normoactive bowel sounds, soft, non-tender abdomen Skin: warm Psychiatric: interacting appropriately, not encephalopathic ICD10 Worksheet Patient Problems: Problems Problem Status Onset History of ESBL E. coli infection Acute Right knee pain Acute
--- NOTE | 2019-03-28 11:11 | SOAPPROG ---
SOAP Progress Note Assessment/Plan: Assessment: s/p right knee debridement washout and wound vac application - POD 9 s/p right TKA - on 02-24-19 in [facility] s/p right TKA explant and placement of antibiotic infused spacer - on 03-10-19 in [facility] Small open sore at the superior aspect of the gluteal cleft, first noted yesterday Plan: Likely dc today to SNF Continue Heparin 5000 units SC inj BID - she will be on this for a total of 4 weeks Wound care nurses changed incisional wound vac changed Sunday, will change today. She will be getting a wound vac sent to [facility] prior to d/c to SNF Continue pain management - currently tylenol, dilaudid, dilaudid IV. Discontinued Robaxin due to hallucinations (according to her daughter, patient had similar reaction when she took Flexeril in the past). Continue PT efforts - WBAT. No ROM. Keep knee immobilizer in place. Continue to encourage patient to stand, attempt to walk ID, nephrology and hospital medicine following - on ertapenem (until 04-30-19); wound vac on right knee -Staphylococcus aureus (MSSA) and ESBL producing Proteus mirabilis right prosthetic knee joint infection - patient has contact precautions Subjective: Patient states she is doing ok, the right knee is not too painful today. She denies SOB, CP, fever, chills. No new complaints. Objective: Vital Signs Temp Pulse Resp BP Pulse Ox 36.6 C 83 16 174/72 H 97 03/28/19 04:00 03/28/19 04:00 03/28/19 04:00 03/28/19 08:11 03/28/19 04:00 Microbiology 03/19/19 14:48 Gram Stain - Final Knee - Tissue 03/19/19 14:47 Gram Stain - Final Knee - Eswab Laboratory Results 03/27/19 03:00 03/28/19 04:30 03/27/19 03/28/19 03/29/19 05:59 05:59 05:59 Intake Total 450 900 Output Total 1125 1225 Balance -675 -325 Patient appears sleepy. She is in bed, no acute distress. Morbidly obese body habitus. RLE: Incisional wound vac in place. No significant skin changes surrounding the incision. Knee immobilizer is in place, but it is open and lying under the knee. Lower leg compartments are soft, but tender. She can actively DF and PF her right foot and great toe against resistance. Grossly NVI distally. ICD10 Worksheet Patient Problems: Problems Problem Status Onset History of ESBL E. coli infection Acute Right knee pain Acute - ICD10 Problem Qualifiers (1) Right knee pain Qualifiers: Chronicity: acute Qualified Code(s): M25.561 - Pain in right knee
[2019-03-28 11:28] VITALS: BP 160/110
--- NOTE | 2019-03-28 11:58 | PDDCSUM ---
Discharge Summary Discharge Summary: ADMISSION DIAGNOSIS: Right knee septic arthritis, following TKA explant DISCHARGE DIAGNOSIS: Right knee septic arthritis, following TKA explant DATE/OPERATION PERFORMED: March 19, 2019 right knee irrigation and debridement and wound vac application CONDITION ON DISCHARGE: Improved HPI: The patient is a 63 year old female who underwent right TKA in [place], [place] with Dr. French approximately on 02-24-19. She had a postoperative infection with dehiscence of the wound after a fall at home. The implant was explanted approximately on 03-10-[address] Loza and an antibiotic spacer was placed. Cultures grew Proteus. She was switched from vancomycin to Zosyn on 03-14-19, however she failed to respond to the antibiotics and wound dehisced a second time despite ongoing local wound care and IV antibiotics. Decision was made to transfer her to [facility] for further I&D and infectious disease consultation. DESCRIPTION OF HOSPITAL COURSE: The patient was admitted to the hospital and on 03-19-19 right knee irrigation and debridement was performed and wound vac was applied. Cultures grew MDR Proteus mirabilis (including ESBL production) and Staphylococcus aureus (MSSA). Zosyn was switched to ertapenem. She was placed into an knee immobilizer which she was instructed to wear whenever she was out of bed. Postoperatively, patient was treated with multimodal DVT prophylaxis, including heparin SC injections, SCDs. Patient was seen by PT and a lot of difficulty walking, transferring, and standing on her own. SNF was recommended. Patient also had catheter placed due to immobilization. Patient experienced bouts of hypertension and hydralazine was ordered for SBP > 170. Patient was also having difficulty with pain control and oxycodone was changed to Dilaudid and this was more effective at relieving her pain. She was on Robaxin, but this was discontinued due to the patient having hallucinations. At the time of discharge, patient was afebrile, wound vac was changed this morning and the wound's appearance has improved over the past week. DISPOSITION: The patient is discharged to SNF. Patient may progress to full weightbearing on the right lower extremity as tolerated, but she will continue to wear the knee immobilizer whenever she is out of bed. No ROM will be performed. She will continue heparin SC injections until 4 weeks post- operative. She will continue dilaudid for pain. The patient will be seen by Dr. French in 3 weeks and sutures will likely be removed at that time. If there are any problems, patient is to call Dr. French's office.
--- NOTE | 2019-03-28 12:08 | WOCRNPDOC ---
WOCRN Advanced Assessment Note - Skin Integrity Problem, Advanced Assess Right Knee Surgical Wound/Incision Dressing Type: Adaptic Touch, Black Vac Foam, Wound Vac Dressing Description: Clean/Dry, Intact Closure Description: Sutures, Approximated (95%), Not Approximated (5% just inferior to patella) Exudate Amount: Moderate Exudate Characteristic(s): Serosanguinous Integumentary Issue Intervention: Dressing Changed Kellen Wound Tissue: Macerated (minimally) Kellen Wound Swelling: Moderate Wound Bed Color: Red, Yellow Wound Bed Constitution: Granulation Tissue, Adhered Slough Site Measurement - Head-to-Toe Length X Width X Depth (cm): 1.8x1.4x0.3 Skin Integrity Problem Comment: Wound cleaned with ns and gauze. Skin prep kellen wound. Draped over sutures to incision line. Most of the incision is approximated, however there is a small amount of slough at 12 oclock and then again just below the patella. The area below the patella is loose and was sharp debrided with scissors at the bedside. There was an area of clean granular tissue below. The incision was covered with adaptic touch, except for this now open area of the wound bed. Black foam was placed in the wound bed and set to - 100 mm Hg continuous suction. There were no leaks. Rochelle SUERO visualized wound. RN's Yadira and Aneta along with student were in the room for vac change. Next vac change due sunday. Conservative Sharp Bedside Debridement Performed: Yes Consent Signed for Debridement: Yes Timeout Performed per Protocol: Yes Instrument Used for Debridement: Scissors Measurements Before Debridement: 1.5x1x0 Measurements After Debridement: 1.5x1x0.3 Estimated Blood Loss from Debridement: 0 Conservative Sharp Bedside Debridement Outcome: Down to Viable Tissue Right Lateral Knee Pressure Injury Dressing Type: Allevyn Life Dressing Description: Clean/Dry, Intact Exudate Amount: Minimal Exudate Characteristic(s): Serosanguinous Integumentary Issue Intervention: Dressing Changed, Dressing Initialed & Dated Kellen Wound Tissue: Macerated (mild kellen wound only) Wound Bed Constitution: Granulation Tissue (85%), Adhered Slough (15%) Wound Edges: Attached, Well Defined Site Measurement - Head-to-Toe Length X Width X Depth (cm): 1.5x3.7x0.3 Pressure Injury Stage: Stage 3, Shooter Helper Related Pressure Injury Pressure Injury Present on Admit: Yes Extremity Temperature: Warm Skin Integrity Problem Comment: Flushed with ns and gauze. Medihoney gel to wound bed. Covered with Task Messenger.
--- NOTE | 2019-03-28 12:22 | PDIAF ---
- Diagnosis Diagnosis: Right knee PJI with MDR Proteus mirabilis Code Status: Full Code - Medication Management Correction Antibiotics: Ertapenem 1gm daily Core Java Engineer Antibiotic Stop Date: 04/30/19 Discharge Medications: electronically signed and located in the Home Medication List. PICC Care - Routine: Yes - Orders Services needed: Registered Nurse, Physical Therapy (WBAT, keep knee immobilizer in place whenever out of bed. NO ROM), Occupational Therapy Isolation Type: Contact Isolation Diet Recommendation: fluid restriction (use comment for amount) (1500 mL/24 hrs ; 1000 mL 7 am-7pm, 500 mL 7pm-7am. she can have a normal diet) Diet Texture: Regular Texture Diet Additional Instructions: Patient can WBAT on right lower extremity, but keep knee immobilizer in place whenever out of bed. Rx on chart for dilaudid, ertapenem, heparin, norvasc, cymbalta, alteplase Continue wound care/wound vac changes are directed by wound care team Follow up with Dr. French in 3 weeks and sutures will likely be removed at that time - Labs/Radiology CBC w/diff Date: 03/31/19 (Weekly while on ertapenem) CMP Date: 03/31/19 (Weekly while on ertapenem) CRP Date: 03/31/19 (Weekly while on ertapenem) Call or Fax Lab and Imaging Results to: Ad Mejia MD, , phone [phone] - Follow Up Care Current Providers and Referrals: NONE *PRIMARY CARE P,. [Primary Care Provider] - Clayton French MD [Emergency Provider] - 04/18/19
[2019-03-28] MEDS: FUROSEMIDE 20 MG/2 ML VIAL IVP SCH (15:22)
--- NOTE | 2019-03-28 15:32 | ASMTLACE ---
LACE Length of stay for Answers: 7-13 days current admission Acuity / Level of Answers: Yes Care: Did the patient have an inpatient admission? Comorbidities - select Answers: Diabetes (uncontrolled or all that apply controlled) Moderate or severe liver or renal disease Opioid dependence / Chronic pain Other Notes: HTN; HLD # of Emergency department Answers: 1-2 visits in the last 6 months Score: 19 Date Signed: 03/28/2019 03:31 PM Electronically Signed By:MELA Coley
--- NOTE | 2019-03-28 16:38 | ASMTCMCOM ---
CM Note CM Note Notes: Pt medically stable for d/c to [facility]. [employer] wound vac delivered to [facility] and placed on pt. Araseli with [facility] reports [facility] has all the [facility] paperwork from [facility]. Pt orders sent to [facility] in [employer]. BIBI May will call report. [facility] online ordering used to schedule bariatric stretcher, the ETA is originally 1600, then [facility] gives ETA of 1700. Pt requests this CM update her son Eduardo and dghtr Glo. This CM had to leave a message for Eduardo ([phone]) and I was able to update Glo ([phone]). Date Signed: 03/28/2019 04:38 PM Electronically Signed By:MELA Coley
--- NOTE | 2019-04-01 18:22 | PQFORM ---
PHYSICIAN QUERY FORM Needs Your Response This query form is being sent to you to assure this patient record is coded properly. Please respond to the question below: SLIP COVER ESTIMATOR QUESTION: Dear Dr. French, Acute Kidney Injury was documented within the H&P, Dr. Garcia 03/21 Consultation, Medical Necessity note, Hospitalist progress notes dated 03/20-03/28 , Infectious Disease progress notes dated 03/21-03/27, and SOAP notes dated 03/22-. Labs; Creatinine on 03/20=2.3, 03/21=2.7, 03/22=2.7, 03/23=2.2, 03/24=2.0, 03/24=2.0, 03/25=2.0, 03/26=1.7, 03/27=1.6, and 03/28=1.7. Treated with IV normal saline at 75cc/hour. After Study, should the diagnosis of "Acute Kidney Injury" be included in the Discharge Summary? __x___Yes No Other more appropriate diagnosis (Please specify) _ Clinically unable to determine Thank you FAVIO [facility] HIM/Coding Dept. INSTRUCTIONS FOR RESPONSE: Answer question by clicking on the "Edit Document" button. Move cursor to area below the stars. When complete, hit "Save." Click on the "Sign" button, then click "Sign" again. Type in your PIN and hit "Enter." MTDD
== END 2019-03-28 17:43 | DRG 349 ==
LOC: EDUNIT# → F3N 17:19
PROVIDERS: ADMIT Internal Medicine; ATTEND Orthopaedic Surgery
DX: T84.53XA Infection and inflammatory reaction due to internal right knee prosthesis, initial encounter (principal); N17.9 Acute kidney failure, unspecified; M00.061 Staphylococcal arthritis, right knee; E11.40 Type 2 diabetes mellitus with diabetic neuropathy, unspecified; B96.4 Proteus (mirabilis) (morganii) as the cause of diseases classified elsewhere; B95.61 Methicillin susceptible Staphylococcus aureus infection as the cause of diseases classified elsewhere; E66.01 Morbid (severe) obesity due to excess calories; I12.9 Hypertensive chronic kidney disease with stage 1 through stage 4 chronic kidney disease, or unspecified chronic kidney disease; N18.9 Chronic kidney disease, unspecified; Z68.43 Body mass index [BMI] 50.0-59.9, adult
CPT/HCPCS: 83010-90; 86704-90; 97110-GP; 97116-GP; 97162-GP; 97166-GO; 97530-GO; 97530-GP; 97535-GO; G0472; J0360; J1170; J1335; J1644; J1815; J1940; J2250; J2270; J2405; J2543; J2704; J2765; J3010; J3370

== ENCOUNTER 2019-03-31 23:55 | Inpatient (IN) | payer MEDICAID ==
--- NOTE | 2019-04-01 00:25 | EDPHY ---
H & P Stated Complaint: hypoglycemia Time Seen by Provider: 04/01/19 00:04 HPI/ROS: Chief Complaint: Hypoglycemia HPI: 63-year-old woman with a history of type 2 diabetes, recent knee replacement with infection. Patient was discharged from the hospital 2 days ago. Patient has been running hypoglycemic all day. She is currently taking metformin 500 mg twice a day, glimepiride might 2 mg twice a day and Lantus 3 units once a day. Patient has had multiple episodes of hypoglycemia, as low as the 40s today. Patient states she has been eating quite a bit the last couple days but her blood sugars are still dropping. She is awake alert. She currently has a wound plate back in place on her knee from her postop infection. ROS: 10 systems were reviewed and were negative except those elements noted in the HPI. PMH: Hypertension, diabetes, acute kidney injury, Social History: No smoking, no alcohol, no recreational drug use Family History: non-contributory Physical Exam: Gen: Awake, Alert, No Distress HEENT: Nose: no rhinorrhea Eyes: PERRLA, EOMI Mouth: Moist mucosa Neck: Supple, no JVD Chest: nontender, lungs clear to auscultation Heart: S1, S2 normal, no murmur Abd: Soft, non-tender, no guarding Back: no CVA tenderness, no midline tenderness Ext: no edema, right knee dressing in place, wound VAC in place. Skin: no rash Neuro: CN II-XII intact, Sensation grossly intact, Strength 5/5 in bilateral upper and lower extremities - Personal History Current Tetanus/Diphtheria Vaccine: Yes - Medical/Surgical History Hx Asthma: Yes Hx Chronic Respiratory Disease: No Hx Diabetes: Yes Hx Cardiac Disease: No Hx Renal Disease: Yes Hx Cirrhosis: No Hx Alcoholism: No Hx HIV/AIDS: No Hx Splenectomy or Spleen Trauma: No Other PMH: Surgery: hysterectomy, RT TKA, Kati, RTC Lt side. R knee replacement. Medical: wrist fx, lt knee injury, - Social History Smoking Status: Former smoker Constitutional: Initial Vital Signs Temperature (C) 36.8 C 03/31/19 23:58 Heart Rate 97 03/31/19 23:58 Respiratory Rate 20 03/31/19 23:58 Blood Pressure 171/88 H 03/31/19 23:58 O2 Sat (%) 97 03/31/19 23:58 O2 Delivery Mode Nasal Cannula O2 (L/minute) 3 Allergies/Adverse Reactions: cyclobenzaprine [From Flexeril] Allergy (Intermediate, Verified 04/01/19 00:01) Delirium Home Medications: Medication Instructions Recorded Atorvastatin Calcium [Lipitor 40 40 mg PO DAILY 03/19/19 mg (*)] Furosemide [Lasix 20 MG (*)] 20 mg PO DAILY 03/19/19 Gabapentin [Neurontin 300 MG (*)] 300 mg PO TID 03/19/19 Glimepiride [Amaryl 2 MG (*)] 2 mg PO BID 03/19/19 Insulin Glargine [Lantus 100 3 units SC DAILY 03/19/19 UNITS/ML] Insulin Glargine [Lantus 100 20 units SC HS 03/19/19 UNITS/ML] Levothyroxine [Synthroid 50 mcg 50 mcg PO DAILY06 03/19/19 (*)] Losartan Potassium [Cozaar 50 mg 50 mg PO BID 03/19/19 (*)] metFORMIN HCL [Glucophage 500 mg 500 mg PO BIDMEAL 03/19/19 (*)] traMADol [Ultram 50 mg (*)] 50 mg PO Q6H PRN 03/19/19 Acetaminophen [Tylenol 325mg (*)] 650 mg PO Q4HRS PRN tab 03/28/19 Alteplase [Cathflo Activase 2 mg 2 mg IVP PRN PRN 33 Days vial 03/28/19 (*)] DULoxetine [Cymbalta 60 MG (*)] 60 mg PO DAILY #30 cap 03/28/19 Ertapenem [INVanz] 1 gm IV DAILY 33 Days vial 03/28/19 HYDROmorphone HCL [Dilaudid 2 mg 2 - 4 mg PO Q4HRS PRN #30 tab 03/28/19 (*)] Heparin [Heparin SC 5000 unit/0.5 5,000 unit SC BID 22 Days inj 03/28/19 ml (*)] amLODIPine BESYLATE [Norvasc 5 mg 5 mg PO DAILY #30 tab 03/28/19 (*)] Medical Decision Making ED Course/Re-evaluation: Patient hypoglycemic here. I have ordered 100 mL of D10 IV. She is also getting oral glucose. I have discussed with Dr. Ritter, hospitalist. Will admit to the hospital for continued glycemic control. - Data Points Laboratory Results: 04/01/19 04/01/19 04/01/19 00:14 00:10 00:10 WBC Pending RBC Pending Hgb Pending Hct Pending MCV Pending MCH Pending MCHC Pending RDW Pending Plt Count Pending MPV Pending Neut % (Auto) Pending Lymph % (Auto) Pending Haakon % (Auto) Pending Eos % (Auto) Pending Baso % (Auto) Pending Nucleat RBC Rel Count Pending Absolute Neuts (auto) Pending Absolute Lymphs (auto) Pending Absolute Monos (auto) Pending Absolute Eos (auto) Pending Absolute Basos (auto) Pending Absolute Nucleated RBC Pending Immature Gran % Pending Immature Gran # Pending Sodium Pending Potassium Pending Chloride Pending Carbon Dioxide Pending Anion Gap Pending BUN Pending Creatinine Pending Estimated GFR Pending Glucose Pending POC Glucose 59 mg/dL L mg/dL (70-100) Calcium Pending Point of Care Test Results: Chemistry 04/01/19 00:14 POC Glucose 59 mg/dL L mg/dL (70-100) Departure - Departure Disposition: [facility] Inpatient Acute Clinical Impression: Hypoglycemia Condition: Fair Referrals: Patient,NotPresent [Primary Care Provider] - As per Instructions
[2019-04-01] MEDS ORDERED: D10W 100 ML IV ONE (00:30)
[2019-04-01 00:34] LABS: PLATELET COUNT 275 10^3/uL (150-400)
[2019-04-01] MEDS ORDERED: ONDANSETRON 4 MG/2 ML VIAL IVP PRN (00:56)
[2019-04-01] MEDS ORDERED: ONDANSETRON DISINTEGRATING 4 MG TAB PO PRN (00:56)
[2019-04-01] MEDS ORDERED: D5W 1/2 NS 1,000 ML IV SCH (01:00)
[2019-04-01] MEDS ORDERED: D50W 25 GM/50 ML SYR IVP ONE (02:26)
[2019-04-01] MEDS ORDERED: D25W 2.5 GM/10 ML SYR IVP ONE (02:26)
[2019-04-01] MEDS: D10W 1,000 ML IV SCH ×3 (02:40→23:44)
[2019-04-01] MEDS ORDERED: D50W 25 GM/50 ML SYR IVP PRN (04:19)
[2019-04-01] MEDS: FUROSEMIDE 20 MG TAB PO SCH ×2 (04:44→09:01)
--- NOTE | 2019-04-01 08:36 | GHP ---
[f rep st] HISTORY AND PHYSICAL DATE OF ADMISSION: 04/01/2019 SOURCE: Patient provides history, appears reliable. Her EMR was reviewed and case discussed with ED provider. CHIEF COMPLAINT: Hypoglycemia. HISTORY OF PRESENT ILLNESS: This is a very pleasant 63-year-old female with a past medical history s ignificant for morbid obesity, BMI 55.5; diabetes type 2, last A1c 5.9 on 03/11/2019; severe osteoart hritis; acute kidney injury; HTN; HLD; and a recent prolonged hospital stay at [facility] for treatment of a right septic knee with ESBL Proteus mirabilis, on daily ertapenem; who presents to the emergency department today from [facility] with a 1-day history of hypoglycemia. Patient rep orts that overall she feels well, just a little bit tired early in this morning. She reports that sh magalie has been trying to eat a lot, but her sugars over the course of the evening have been 40s and 50s a t [facility]. Despite juice and snacks, patient has continued to drop down. She has never had any i ssues previously. Patient is currently on 3 units of Lantus daily, glimepiride 2 mg p.o. b.i.d., and metformin 500 mg p.o. b.i.d. She reports that the Amaryl with the glimepiride was supposed to be di scontinued previously, so she is not sure why it is still on her med rec, but appears that she did re ceive her dose. She reports that she has been having chills for the last few days, but no fevers. N o significant increase in pain in her wound VAC of the right knee. She was transferred on 03/19/2019 to [facility] from [facility] following dehiscence of her surgical wound and septic knee. It did undergo washout with antibiotic spacer. Cultures did grow MDRO Proteus mirabilis, and patient was started on ertapenem during her last hospital stay, which she has continued on a daily ba sis. She was subsequently discharged on 03/28/2019 to [facility], and had otherwise been doing well up until this evening, when her sugars dropped. REVIEW OF SYSTEMS: Ten systems reviewed, negative except as noted above. ALLERGIES: Cyclobenzaprine and narcotics. Patient reports that she gets delirious. PAST MEDICAL HISTORY: Significant for diabetes type 2 with last A1c 5.9 on 03/11/2019, osteoarthriti s, acute kidney injury during her last hospital stay, shingles in 1999, asthma, HTN, HLD; morbid obes ity, BMI greater than 55; septic knee as noted above. PAST SURGICAL HISTORY: Significant for hysterectomy; right total knee arthroplasty with removal of h ardware, washout, antibiotic spacer placement, and repeated washout; cholecystectomy; left rotator cu ff surgery. FAMILY HISTORY: Diabetes, hypertension, vascular disease, renal failure. SOCIAL HISTORY: Patient typically lives alone in [place], [place]. She is currently residing at [facility]. She denies tobacco, drugs, or alcohol use. CODE STATUS: Full. Patient reports that she does not want prolonged life support, and just wants 3 cycles of CPR. PHYSICAL EXAMINATION: VITAL SIGNS: Upon arrival to the emergency department, blood pressure is 121/ 88, heart rate is 97, respiratory rate 20, O2 saturation 97% on 3 L by nasal cannula, temperature 36. 8. On the floor, blood pressure is 189/72, heart rate 79, respiratory rate 22, O2 saturation 96% on 2 L by nasal cannula. GENERAL: No acute distress. Pleasant, morbidly obese female who is lying kedar etly in bed. She is awake, interactive, but does appear fatigued. Nontoxic. HEAD: Normocephalic, atraumatic. EYES: Extraocular muscles are intact. Pupils are equal and round. No scleral icterus or conjunctival injection. ENT: Mucous membranes appear moist. No nasal discharge. CV: Regular r ate and rhythm. No murmurs, rubs, or gallops appreciated. No chest wall tenderness to palpation. R ESPIRATORY: Unlabored breathing. Lungs clear to auscultation bilaterally. No wheezes, rales, or rh onchi. Slightly diminished inspiratory effort. Exam slightly limited due to body habitus. Overall clear, unlabored breathing. ABDOMEN: Obese, soft. No tenderness to palpation. No rebound, guardin g, or masses appreciated. : No suprapubic tenderness to palpation. No Real catheter in place. MUSCULOSKELETAL: Generalized deconditioning, but able to move her upper extremities and left lower e xtremity. NEURO: Grossly nonfocal on limited exam due to patient's mobility. Sensation intact. SK IN: Wound VAC in place. No surrounding erythema or exudates. Serosanguineous fluid in the __ tubing. LABORATORY STUDIES: WBC 9.85, H and H is 8.1 and 26.1, MCV 89.7, platelet count is 275; neutrophil p ercent is 83.7, no bands. Sodium 137, potassium 5.0, chloride 107, CO2 of 22, anion gap 8. BUN is 1 5, creatinine is 1.1, GFR 50, glucose 51. repeated in the emergency department 59, 87, 50 , and 74. Calcium is 8.2. ASSESSMENT AND PLAN: A pleasant 63-year-old female with history of diabetes, hypertension, hyperlipi demia, morbid obesity with BMI of greater than 55; and a history of a right septic knee, status post multiple washouts, antibiotic spacer; on daily ertapenem for a history of extended-spectrum beta-lact amase Proteus mirabilis; who presents to the emergency department today for recurrent episodes of hyp oglycemia. 1. Hypoglycemia. Patient is currently on Amaryl, which she reports was previously supposed to be di scontinued; 3 units in the morning and 20 units at night of Lantus; and metformin. We will plan to d iscontinue the metformin and the Amaryl, given her acute kidney injury, likely decreased clearance. The half-life of Amaryl is 5 to 9 hours. She has required multiple doses of D50, D10, and currently continues on a D10 drip. Will continue to support the patient. She has been given multiple bottles of juice as her sugars continue to drop. Anticipate that this should start to improve over the next 6 to 12 hours, dependent on her renal function. Will hold off on re-initiating insulin at this time also; but dependent on her renal status, short-acting may be a better option until it is proven that patient's sugars are stabilized. Patient is continuing on a D10 drip. We will have to monitor her v olume status. No listed history of congestive heart failure. 2. Acute kidney injury. Nephrology evaluated the patient during her last hospital stay. There was some concern for potentially interstitial nephritis from her antibiotic with vancomycin and Zosyn, or from her other medications. Will continue with some gentle intravenous fluid hydration and monitor her renal function. 3. Anemia. Patient with a history of acute blood loss anemia, status post her multiple surgeries. Her hemoglobin and hematocrit have remained stable. No evidence of active bleeding. Continue to mon itor. 4. Septic joint with history of multi-drug resistant organism Proteus mirabilis. Isolation precauti ons. Continue patient's ertapenem. 5. Morbid obesity. Mobilize when able. Continue physical therapy, occupational therapy. 6. Hypothyroidism. Continue replacement. 7. Chronic pain. Patient reports that she develops hallucinations. Does not want any narcotics. 8. Hyperlipidemia. Continue statin. 9. Benign essential hypertension. Patient's blood pressures have been elevated, component likely of pain in addition. Continue patient's amlodipine, hold losartan, and continue to support patient wit h non-narcotic pain management. She does have gabapentin and Tylenol available, as well as a low dos e of Toradol. 10. Fluid, electrolyte, nutrition. Patient currently on D10 at 100. Continue to monitor fluid stat us and blood sugars as noted above. 11. Electrolytes. Monitor electrolytes and renal function later this morning. 12. Diet. Encourage oral intake and hydration. Diabetic diet has been ordered. 13. Code status is full, but patient reports she does not want more than 2 or 3 cycles of CPR, espec ially if resuscitation is appearing futile. 14. Prophylaxis. Continue patient's heparin twice daily at 5000 units. Hold off on sequential comp ression devices for history of septic knee. 15. Disposition. Patient admitted to observation status on SDU floor for frequent Accu-Cheks approx imately every hour until her blood sugars are stabilized. /[id number]/MODL
[2019-04-01] MEDS: ERTAPENEM 1 GM in NS 100 ML IV SCH (09:01)
[2019-04-01] MEDS: HEPARIN 5,000 UNIT/0.5 ML INJ SC SCH ×2 (09:01→19:42)
[2019-04-01] MEDS: ACETAMINOPHEN 325 MG TAB PO PRN (09:43)
[2019-04-01] MEDS ORDERED: ALTEPLASE 2 MG VIAL IV PRN (10:55)
--- NOTE | 2019-04-01 10:55 | HOSPPROG ---
Hospitalist Progress Note Assessment/Plan: DIAGNOSES: * Hypoglycemia, suspect may be self-induced -currently still requiring D10 drip not receiving any hypoglycemics -have reviewed with Dr. French her knee surgeon from most recent stay here. There is suspicion that the patient had been giving herself insulin doses during a prior hospitalization elsewhere in order to be able to eat more, apparently her family was helping her with this at the time -there is some inconsistency in the reported medicines given at [facility] past few days comparing patient's statement to info from [facility] * Right knee prosthesis infection Proteus mirabilis, explanted 02/24, washout and antibiotic spacer disc 03/10 Dr. French -ongoing treatment with ertapenem, wound VAC in place -PICC catheter in place right knee (apparently was to have been changed yesterday but this did not happen at [facility]) * Recent acute kidney injury creatinine peak 2.7 in February, currently stabilized but has fairly high BUN * Hyperkalemia, mild * Hypertension with high blood pressures here, appears at least in part due to not getting blood pressure medicines overnight with transfer * Diabetes mellitus type 2 * Anemia, expected blood loss anemia from recent surgery * Chronic pain syndrome * Morbid obesity PLANS: * Continue careful monitoring of glucose, continue D10 drip at this time * All insulin and oral hypoglycemics currently held * Diabetic diet * Watch carefully for any signs that she might be self dosing with insulin or other meds * Continue her IV ertapenem * Needs her wound VAC replaced today, call in to surgery as apparently no wound care team here today * PICC catheter care * DVT prophylaxis Seen by me on hospitalist rounds as well as multidisciplinary rounds Reviewed in detail with Dr. Meir Stanford Greater than 40 min bedside time by me today in addition to the time spent earlier in the day today by Dr. Ritter on her admission activities SUBJECTIVE: Patient states she still has some knee pain No other symptoms at this time OBJECTIVE Vitals reviewed: Blood pressures remain high vitals otherwise stable without fever Mortgage Protection Specialist, my review: Sinus Exam: alert oriented relaxed skin warm dry color ok resps not labored lungs clear BSs heart regular abd soft nondistended nontender, bowel sounds present limbs warm, no edema iv site ok Lab data: Still having some hypoglycemic spells here with sugars in the 50s to 70s on D10 drip Objective: Vital Signs Temp Pulse Resp BP Pulse Ox 36.8 C 84 19 181/67 H 95 04/01/19 08:00 04/01/19 08:00 04/01/19 08:00 04/01/19 08:00 04/01/19 08:00 Laboratory Results 04/01/19 04:00 03/31/19 04/01/19 04/02/19 06:59 06:59 06:59 Intake Total 1144 Output Total 925 Balance 219 ICD10 Worksheet Patient Problems: Problems Problem Status Onset Hypoglycemia Acute History of ESBL E. coli infection Acute Right knee pain Acute
[2019-04-01] MEDS: LOSARTAN POTASSIUM 50 MG TAB PO SCH ×2 (11:23→19:42)
[2019-04-01] MEDS: DULoxetine 60 MG CAP PO SCH (11:24)
[2019-04-01] MEDS: ATORVASTATIN CALCIUM 40 MG TAB PO SCH (11:24)
[2019-04-01] MEDS: LEVOTHYROXINE 50 MCG TAB PO SCH (11:24)
--- NOTE | 2019-04-01 14:49 | ASMTCMCOM ---
CM Note CM Note Notes: Pt is a 63 yo F who presented to ED last night from [facility] for hypoglycemia. Pt is a Medicaid pt who lives in [place], [place]. Was discharged last week to [facility] with [facility] helping to pay for part of pt's wound vac and antibiotics because she was denied from various facilities for her high needs. Danette Mcginnis was involved in discharge planning last admission to collaborate with financial agreements with [facility]. Ortho MD aware of admission. CM spoke with Crystal from [facility] who reports they can take pt back once she is medically stabalized here. CM submit updates via [employer]. CM met with pt and she reports she wants to be closer to her family. CM reminded her that she was denied from numerous facilities due to her high level of needs and [facility] was only facility able to accomodate her needs. Pt reports she cried a lot while she was at [facility]. CM to follow. Plan: likely to return to [facility] once medically stable, CM looking for other medicaid facilities who may consider her. Date Signed: 04/01/2019 02:49 PM Electronically Signed By:ARNOLD Simons
[2019-04-01] MEDS: GABAPENTIN 300 MG CAP PO SCH ×2 (16:49→22:21)
[2019-04-01] MEDS: HYDROmorphONE/DILAUDID 2 MG TAB PO PRN (18:05)
[2019-04-01] MEDS: traMADol 50 MG TAB PO PRN (19:41)
[2019-04-01] MEDS ORDERED: HEPARIN 5,000 UNIT/0.5 ML INJ SC SCH (21:00)
[2019-04-01] MEDS: hydrALAZINE 10 MG TAB PO PRN (22:53)
[2019-04-02 04:33] LABS: PLATELET COUNT 223 10^3/uL (150-400)
[2019-04-02] MEDS: LEVOTHYROXINE 50 MCG TAB PO SCH (05:29)
[2019-04-02] MEDS ORDERED: SODIUM ZIRCONIUM CYCLOSILICATE 10 GM PACKET PO ONE (05:43)
[2019-04-02] MEDS: FUROSEMIDE 20 MG TAB PO SCH (08:17)
[2019-04-02] MEDS: GABAPENTIN 300 MG CAP PO SCH ×3 (08:17→22:54)
[2019-04-02] MEDS: LOSARTAN POTASSIUM 50 MG TAB PO SCH (08:17)
[2019-04-02] MEDS: DULoxetine 60 MG CAP PO SCH (08:17)
[2019-04-02] MEDS: ATORVASTATIN CALCIUM 40 MG TAB PO SCH (08:17)
[2019-04-02] MEDS: ERTAPENEM 1 GM in NS 100 ML IV SCH (08:18)
[2019-04-02] MEDS ORDERED: amLODIPine BESYLATE 5 MG TAB PO SCH ×2 (09:00→12:25)
[2019-04-02] MEDS ORDERED: ERTAPENEM 1 GM IV SCH (09:00)
[2019-04-02] MEDS: HEPARIN 5,000 UNIT/0.5 ML INJ SC SCH ×2 (09:38→20:17)
[2019-04-02] MEDS: hydrALAZINE 10 MG TAB PO PRN (11:03)
--- NOTE | 2019-04-02 12:27 | HOSPPROG ---
Hospitalist Progress Note Assessment/Plan: # hypoglycemia - reported that patient is taking extra insulin on her own - she denies - she is on multiple hypoglycemic meds - holding - cont D10 - will try to wean today # R prosthetic knee infection, now with spacers; d/t MDR proteus - cont invanz, stop date 04/30 - she will need wound vac - discussed with Dr French # hyperK - hold losartan, incr amlodipine - schedule Lokelma, recheck later today # recent LI - overall improving # DM2 - holding meds # morbid obesity # htn - stop losartan, incr norvasc # hld - lipitor Subjective: no acute events; Objective: Vital Signs Temp Pulse Resp BP Pulse Ox 36.7 C 84 18 139/66 H 94 04/02/19 11:53 04/02/19 11:53 04/02/19 11:53 04/02/19 12:02 04/02/19 11:53 Laboratory Results 04/02/19 04:00 04/02/19 10:00 04/01/19 04/02/19 04/03/19 05:59 05:59 05:59 Intake Total 1144 2846 Output Total 925 1750 Balance 219 1096 chart reviewed discussed with Dr French - Physical Exam Constitutional: no apparent distress, appears nourished, obese Cardiovascular: regular rate and rhythym, no murmur, rub, or gallop Respiratory: no respiratory distress, no rales or rhonchi Gastrointestinal: normoactive bowel sounds, soft, non-tender abdomen, no palpable masses Musculoskeletal: other (R knee with incision that is dehiscing) ICD10 Worksheet Patient Problems: Problems Problem Status Onset Hypoglycemia Acute History of ESBL E. coli infection Acute Right knee pain Acute
[2019-04-02] MEDS: SODIUM ZIRCONIUM CYCLOSILICATE 10 GM PACKET PO SCH ×2 (15:06→20:17)
--- NOTE | 2019-04-02 17:28 | WOCRNPDOC ---
WOCRN Advanced Assessment Note - Skin Integrity Problem, Advanced Assess Right Knee Surgical Wound/Incision Dressing Type: ABD Pad, Gauze Other Dressing Type: medipore tape Dressing Description: Intact, Saturated Closure Description: Sutures, Approximated, Not Approximated Exudate Amount: Moderate Exudate Color: Red Exudate Characteristic(s): Bloody, Serosanguinous Integumentary Issue Intervention: Dressing Changed Kellen Wound Tissue: Swollen Kellen Wound Swelling: Mild Wound Bed Constitution: Tunneling (3 cm at 1 oclock; 3 cm at 6 oclock) Wound Edges: Thick Site Odor: None Site Measurement - Head-to-Toe Length X Width X Depth (cm): 4x4x2.5 Skin Integrity Problem Comment: Dressing taken down to find mostly intact incision. This larger wound is located at the distal third of the incision. Upon initial assessment, a much deeper wound was found compared to the last time wound care assessed. Dr Rojas visualized wound as well as Rochelle SUERO. Findings communicated with Dr French. Asked by Dr French to place wound vac for drainage management. Mastisol skin prep and drape applied kellen wound. Strip of Adaptic touch placed along the exposed incision. Two pieces of white foam placed into the two tunnels. One piece of black small Simplace foam placed over the white foam ends and one piece of black foam placed along the incision overtop the Adaptic touch. Drape to secure all in place. Suction at -125 mm Hg with no leaks noted. Brianda M[facility]OUGH RN in room for assessment. BIBI Webb in room for vac placement.
[2019-04-02] MEDS: ACETAMINOPHEN 325 MG TAB PO PRN (18:03)
[2019-04-03] MEDS: LEVOTHYROXINE 50 MCG TAB PO SCH (05:00)
[2019-04-03] MEDS: SODIUM ZIRCONIUM CYCLOSILICATE 10 GM PACKET PO SCH ×2 (05:01→15:06)
--- NOTE | 2019-04-03 05:47 | SOAPPROG ---
SOAP Progress Note Assessment/Plan: Assessment: Plan: 04/03/19 05:40 S/P Explant TKA I&D x 2 Patient readmitted from SNF with hypoglycemia, improved now. Diabetic reservoir caretaker from [facility] notified me it was discovered Joanne had been self administering, with the help of her family, Denise while an inpatient there. Further wound breakdown noted yesterday when VAC changed. She will need repeat washout in OR possibly late Today or Sunday. Objective: wound breakdown distal 1/3 of incision Vac changed yesterday Vital Signs Temp Pulse Resp BP Pulse Ox 36.6 C 83 18 165/79 H 91 L 04/03/19 03:58 04/03/19 03:58 04/03/19 03:58 04/03/19 03:58 04/03/19 03:58 Laboratory Results 04/02/19 18:00 04/03/19 04:50 04/01/19 04/02/19 04/03/19 05:59 05:59 05:59 Intake Total 1144 2846 1268 Output Total 921 1750 1700 Balance 219 1096 -432 ICD10 Worksheet Patient Problems: Problems Problem Status Onset Hypoglycemia Acute History of ESBL E. coli infection Acute Right knee pain Acute
--- NOTE | 2019-04-03 08:45 | HOSPPROG ---
Hospitalist Progress Note Assessment/Plan: # hypoglycemia - reported that patient is taking extra insulin on her own - she denies - she is on multiple hypoglycemic meds - holding -D10 was discontinued yesterday -has had ongoing hyperglycemia - will start low dose long acting tonight # R prosthetic knee infection, now with spacers; d/t MDR proteus - cont Invanz, stop date 04/30 - has a wound vac in place -to go to OR tonight or tomorrow for a washout # hyperK - hold losartan, incr amlodipine -K this morning was 5.6, rechecked and now 5.3 -will decrease dose of Lokelma - # recent LI - overall improving # DM2 - holding meds # morbid obesity -BMI of 55 #anemia -will monitor -asymptomatic # htn - stop losartan, Norvasc dose increased -bp high this morning, will add prn medications # hld - Lipitor #plan: Joanne wants to go back to [place] and live w her daughter who is a COSMETOLOGY EDUCATOR. She is working w PT and OT, will see how she is doing and see if home care is a possibility. I'm concerned about her low glucoses and management of her diabetes. Subjective: Joanne has no c/o pain, wants to go home. Objective: Vital Signs Temp Pulse Resp BP Pulse Ox 36.7 C 79 18 179/97 H 91 L 04/03/19 07:43 04/03/19 07:43 04/03/19 07:43 04/03/19 07:43 04/03/19 07:43 Laboratory Results 04/02/19 18:00 04/03/19 04:50 04/02/19 04/03/19 04/04/19 05:59 05:59 05:59 Intake Total 2846 1268 Output Total 1750 1700 Balance 1096 -432 - Physical Exam Constitutional: appears nourished, not in pain, chronically ill appearing, obese Eyes: PERRL Ears, Nose, Mouth, Throat: hearing normal Cardiovascular: regular rate and rhythym, other (distant heart tones due to her body habitus) Respiratory: no respiratory distress, reduced air movement Gastrointestinal: normoactive bowel sounds, soft, non-tender abdomen Skin: warm, other (wound vac on r lower ext) Neurologic: AAOx3 Psychiatric: interacting appropriately ICD10 Worksheet Patient Problems: Problems Problem Status Onset Hypoglycemia Acute History of ESBL E. coli infection Acute Right knee pain Acute
--- NOTE | 2019-04-03 08:50 | HOSPPROG ---
Hospitalist Progress Note Assessment/Plan: Patient is a 63-year-old with history of diabetes, hypertension, hyperlipidemia , morbid obesity, history of right septic knee status post multiple washouts and anti biotics pacer who presented to the emergency department with recurrence episodes of hypoglycemia. 1st encounter chart reviewed. # hypoglycemia - reported that patient is taking extra insulin on her own - she denies - she is on multiple hypoglycemic meds - holding - cont D10 -had been on Lantus, Amaryl, and metformin # R prosthetic knee infection, now with spacers; d/t MDR proteus - cont invanz, stop date 04/30 - she will need wound vac - discussed with Dr French # hyperK - hold losartan, incr amlodipine - schedule Lokelma - potassium still a bit elevated at 5.6 # recent LI - overall improving # DM2 - holding meds # morbid obesity # htn - stop losartan, incr norvasc # hld - lipitor # anemia Objective: Vital Signs Temp Pulse Resp BP Pulse Ox 36.7 C 79 18 179/97 H 91 L 04/03/19 07:43 04/03/19 07:43 04/03/19 07:43 04/03/19 07:43 04/03/19 07:43 Laboratory Results 04/02/19 18:00 04/03/19 04:50 04/02/19 04/03/19 04/04/19 05:59 05:59 05:59 Intake Total 1416 1268 Output Total 1750 1700 Balance 1096 -432 ICD10 Worksheet Patient Problems: Problems Problem Status Onset Hypoglycemia Acute History of ESBL E. coli infection Acute Right knee pain Acute
[2019-04-03] MEDS: GABAPENTIN 300 MG CAP PO SCH ×3 (10:09→22:38)
[2019-04-03] MEDS: DULoxetine 60 MG CAP PO SCH (10:10)
[2019-04-03] MEDS: ATORVASTATIN CALCIUM 40 MG TAB PO SCH (10:10)
[2019-04-03] MEDS: HEPARIN 5,000 UNIT/0.5 ML INJ SC SCH ×2 (10:15→22:42)
[2019-04-03] MEDS: FUROSEMIDE 20 MG TAB PO SCH (10:15)
[2019-04-03] MEDS: ACETAMINOPHEN 325 MG TAB PO PRN (10:16)
[2019-04-03] MEDS: ERTAPENEM 1 GM in NS 100 ML IV SCH (10:17)
--- NOTE | 2019-04-03 10:27 | PDMN ---
Medical Necessity Medical necessity: Change to IP, as of 04/02/19, per MD & MCG MG-SIC Systemic or Infectious Condition; los >2 mn for ongoing management of R prosthetic knee infection, hypoglycemia & hyperkalemia w/recent LI; requiring further monitoring, Ortho consult w/wound vac placement, IV abx/med management; hx diabetes
--- NOTE | 2019-04-03 14:40 | WOCRNPDOC ---
WOCRN Advanced Assessment Note - Skin Integrity Problem, Advanced Assess Right Posterior Upper Leg Pressure Injury Dressing Type: Open to Air Site Measurement - Head-to-Toe Length X Width X Depth (cm): 0.9x7x0 Pressure Injury Stage: Deep Tissue Injury (DTI), Senior Pricing Analyst Related Pressure Injury Pressure Injury Present on Admit: No Skin Integrity Problem Comment: Linear director of medical review related pressure injury possibly from bedpan or tubing. Wound care will follow. Bilateral Lateral Knee Pressure Injury Dressing Type: Open to Air Exudate Amount: None Wound Bed Constitution: Stable Eschar Site Measurement - Head-to-Toe Length X Width X Depth (cm): 1x2x0 Pressure Injury Stage: Unstageable, Senior Pricing Analyst Related Pressure Injury Pressure Injury Present on Admit: Yes Skin Integrity Problem Comment: Wound from compression that patient was wearing before previous admission. Wound care will follow. No sign of infection.
[2019-04-03] MEDS: hydrALAZINE 10 MG TAB PO PRN (17:49)
[2019-04-03] MEDS: HYDROmorphONE/DILAUDID 2 MG TAB PO PRN (22:38)
[2019-04-03] MEDS: INSULIN GLARGINE 100 UNITS/ML UNIT SC SCH (22:42)
[2019-04-04] MEDS: LEVOTHYROXINE 50 MCG TAB PO SCH (05:19)
[2019-04-04] MEDS: hydrALAZINE 10 MG TAB PO PRN (05:19)
--- NOTE | 2019-04-04 08:24 | HOSPPROG ---
Hospitalist Progress Note Assessment/Plan: # hypoglycemia - reported that patient is taking extra insulin on her own - she denies - she is on multiple hypoglycemic meds - holding - has had ongoing hyperglycemia now- add low dose long acting w improvement # R prosthetic knee infection, now with spacers; d/t MDR proteus - cont Invanz, stop date 04/30 - has a wound vac in place - going to OR today for a washout # hyperK - hold losartan, incr amlodipine -much improved -cont daily Lokelma - # recent LI - overall improving -metformin on hold # DM2 - holding oral medications # morbid obesity -BMI of 55 #anemia -will monitor -asymptomatic # htn - stop losartan, Norvasc dose increased -bp high this morning, will add prn medications # hld - Lipitor #plan: Patient wants very much to go home. The main issue is that [facility] is providing the wound VAC that is used at [facility]. She will need to go to [facility] for at least a few weeks. [facility] came to evaluate the patient. They addressed her concerns about staying there. The plan is for her to be discharged to [facility] in the morning. Subjective: Joanne has no complaints of pain. Overall is feeling well Objective: Vital Signs Temp Pulse Resp BP Pulse Ox 37.0 C 81 18 172/69 H 98 04/04/19 07:33 04/04/19 07:33 04/04/19 07:33 04/04/19 07:33 04/04/19 07:33 Laboratory Results 04/04/19 04:45 04/04/19 04:45 04/03/19 04/04/19 04/05/19 05:59 05:59 05:59 Intake Total 1268 854 Output Total 1150 1825 Balance 118 -971 - Physical Exam Constitutional: appears nourished, chronically ill appearing, obese Eyes: PERRL Ears, Nose, Mouth, Throat: hearing normal Cardiovascular: regular rate and rhythym (distant heart and lung sounds due to her body habitus) Respiratory: no respiratory distress Gastrointestinal: normoactive bowel sounds Skin: warm, other (right knee with wound vac in place) Musculoskeletal: generalized weakness Neurologic: AAOx3 Psychiatric: interacting appropriately ICD10 Worksheet Patient Problems: Problems Problem Status Onset Hypoglycemia Acute History of ESBL E. coli infection Acute Right knee pain Acute
[2019-04-04] MEDS: HEPARIN 5,000 UNIT/0.5 ML INJ SC SCH ×2 (09:39→20:46)
[2019-04-04] MEDS: DULoxetine 60 MG CAP PO SCH (10:02)
[2019-04-04] MEDS: FUROSEMIDE 20 MG TAB PO SCH (10:02)
[2019-04-04] MEDS: traMADol 50 MG TAB PO PRN (10:02)
[2019-04-04] MEDS: GABAPENTIN 300 MG CAP PO SCH ×3 (10:03→20:46)
[2019-04-04] MEDS: ATORVASTATIN CALCIUM 40 MG TAB PO SCH (10:03)
[2019-04-04] MEDS: ERTAPENEM 1 GM in NS 100 ML IV SCH (10:04)
[2019-04-04] MEDS ORDERED: BUPIVACAINE/EPI 0.5% 30 ML SDV ONE (10:40)
[2019-04-04] MEDS ORDERED: POLYMYXIN B SULFATE 500,000 UNIT/10 ML SYR IRR ONE (10:40)
[2019-04-04] MEDS ORDERED: BACITRACIN 50,000 UNITS/10 ML SYR IRR ONE (10:40)
[2019-04-04] MEDS ORDERED: LR 1,000 ML IV ONE (13:22)
[2019-04-04] MEDS ORDERED: MIDAZOLAM 2 MG/2 ML VIAL ONE (13:44)
--- NOTE | 2019-04-04 13:46 | PDANEPAE ---
ANE History of Present Illness knee wound, here for I&D ANE Past Medical History - Cardiovascular History Hx Hypertension: Yes Hx Arrhythmias: No Hx Chest Pain: No Hx CHF / Valvular Disease: No Hx Palpitations: No - Pulmonary History Hx COPD: No Hx Asthma/Reactive Airway Disease: Yes Hx Recent Upper Respiratory Infection: No Hx Oxygen in Use at Home: Yes O2 in Use at Home (L/minute): 3 Hx Sleep Apnea: Yes Sleep Apnea Screening Result - Last Documented: Positive - Endocrine History Hx Diabetes: Yes Hypothyroid: Yes Obesity: yes, severe - Renal History Hx Renal Disorders: Yes Renal History Comment: acute renal compromise with this episode of hypoglycemia. K 5.3 this morning. GFR 50 - Other Health History Other Health History: Anemia, hgb 7.3 today - Chronic Pain History Chronic Pain: Yes ANE Review of Systems Review of Systems: ANE Patient History - Allergies Allergies/Adverse Reactions: cyclobenzaprine [From Flexeril] Allergy (Intermediate, Verified 04/01/19 00:01) Delirium - Home Medications Home Medications: Atorvastatin Calcium [Lipitor 40 mg (*)] 40 mg PO DAILY 03/19/19 [Last Taken 05/14] Furosemide [Lasix 20 MG (*)] 20 mg PO DAILY 03/19/19 [Last Taken 03/31/19] Gabapentin [Neurontin 300 MG (*)] 300 mg PO TID 03/19/19 [Last Taken 03/31/19 21 :00] Insulin Glargine [Lantus 100 UNITS/ML] 3 units SC DAILY 03/19/19 [Last Taken 05/14] Levothyroxine [Synthroid 50 mcg (*)] 50 mcg PO DAILY06 03/19/19 [Last Taken 05/14] Losartan Potassium [Cozaar 50 mg (*)] 50 mg PO BID 03/19/19 [Last Taken 21:00] metFORMIN HCL [Glucophage 500 mg (*)] 500 mg PO BIDMEAL 03/19/19 [Last Taken 05/14 18:00] traMADol [Ultram 50 mg (*)] 50 mg PO Q6H PRN 03/19/19 [Last Taken Unknown] Acetaminophen [Tylenol 325mg (*)] 650 mg PO Q4HRS PRN 04/01/19 [Last Taken Unknown] Alteplase [Cathflo Activase 2 mg (*)] 2 mg IV Q8HRS PRN 04/01/19 [Last Taken Unknown] Ertapenem [Invanz] 1 gm IV DAILY 04/01/19 [Last Taken Unknown] Glimepiride [Amaryl 2 MG (*)] 2 mg PO BID 04/01/19 [Last Taken Unknown] HYDROmorphone HCL [Dilaudid 2 mg (*)] 2 mg PO Q4HRS PRN 04/01/19 [Last Taken Unknown] - NPO status NPO Since - Liquids (Date): 04/04/19 NPO Since - Liquids (Time): 00:00 NPO Since - Solids (Date): 04/04/19 NPO Since - Solids (Time): 00:00 - Smoking Hx Smoking Status: Former smoker ANE Labs/Vital Signs - Labs Result Diagrams: 04/04/19 04:45 04/04/19 04:45 - Vital Signs Blood Pressure: 177/84 Heart Rate: 76 Respiratory Rate: 14 O2 Sat (%): 91 Height: 172.72 cm Weight: 165.5 kg ANE Physical Exam - Airway Neck exam: FROM, increased neck circumference Mallampati Score: Class 4 Mouth exam: normal dental/mouth exam - Pulmonary Pulmonary: no respiratory distress, no rales or rhonchi - Cardiovascular Cardiovascular: regular rate and rhythym, no murmur, rub, or gallop - ASA Status ASA Status: III ANE Anesthesia Plan Anesthesia Plan: GA w LMA Total IV Anesthesia: No
[2019-04-04] MEDS ORDERED: MIDAZOLAM 2 MG/2 ML VIAL IVP ONE ×2 (13:50→15:02)
--- NOTE | 2019-04-04 13:56 | ASMTCMCOM ---
CM Note CM Note Notes: Chart reviewed. Per Juliette Chacon, pt is not a candidate to go home which is what pt wants; really needs a SNF. [facility] referral [facility] in [facility], which is where she had been prior to coming to the hospital. Pt is to have a washout of her infected leg later today in the OR. CM will continue to monitor. CM D/C plan: SNF Date Signed: 04/04/2019 01:55 PM Electronically Signed By:Nayely Rice
[2019-04-04] MEDS ORDERED: LIDOCAINE 2% 100 MG/5 ML SYR ONE (13:59)
[2019-04-04] MEDS ORDERED: METOCLOPRAMIDE 10 MG/2 ML VIAL ONE (13:59)
[2019-04-04] MEDS ORDERED: RANITIDINE 50 MG/2 ML VIAL ONE (13:59)
[2019-04-04] MEDS ORDERED: fentaNYL 100 MCG/2 ML INJ ONE ×2 (13:59→15:23)
[2019-04-04] MEDS ORDERED: PROPOFOL 200 MG/20 ML VIAL ONE (14:00)
[2019-04-04] MEDS ORDERED: fentaNYL 100 MCG/2 ML INJ IVP PRN (14:46)
[2019-04-04] MEDS ORDERED: NALOXONE HCL 0.4 MG/ML INJ IVP PRN ×3 (14:46→15:36)
[2019-04-04] MEDS ORDERED: ONDANSETRON 4 MG/2 ML VIAL IVP PRN (14:46)
--- NOTE | 2019-04-04 15:20 | POSTOPPROG ---
Post Op Note Date of Operation: 04/04/19 Surgeon: Clayton French Anesthesiologist: Jhon Anesthesia: GET(General Endotracheal) Pre-op Diagnosis: septic arthritis knee rt Post-op Diagnosis: same Indication: infection Procedure: I&D, wound vac application Inf/Abcess present in the surg proc area at time of surgery?: Yes Depth: Deep Incisional (Fascial) Complications: none Drains: Wound Vac
[2019-04-04] MEDS ORDERED: HYDROmorphONE/DILAUDID 1 MG/ML INJ ONE (15:23)
[2019-04-04] MEDS ORDERED: PROMETHAZINE HCL 25 MG/ML INJ IVP PRN (15:23)
[2019-04-04] MEDS ORDERED: HYDROmorphONE/DILAUDID 1 MG/ML INJ IVP PRN (15:23)
[2019-04-04] MEDS ORDERED: ALBUTEROL 3 ML DEYVIAL IH PRN (15:36)
[2019-04-04] MEDS ORDERED: ALBUTEROL 3 ML DEYVIAL ONE (15:38)
[2019-04-04] MEDS: HYDROmorphONE/DILAUDID 2 MG TAB PO PRN ×2 (16:26→20:46)
[2019-04-04] MEDS: SODIUM ZIRCONIUM CYCLOSILICATE 10 GM PACKET PO SCH (16:29)
--- NOTE | 2019-04-04 20:29 | GOP ---
[f rep st] OPERATIVE REPORT DATE OF OPERATION: 04/04/2019 SURGEON: Clayton French MD ANESTHESIA: General. ANESTHESIOLOGIST: Dr. Ferreira. PREOPERATIVE DIAGNOSIS: Wound breakdown following incision and drainage after explant total knee arthroplasty, right knee. POSTOPERATIVE DIAGNOSIS: Wound breakdown following incision and drainage after explant total knee arthroplasty, right knee. PROCEDURE PERFORMED: Incision and drainage, wound vacuum-assisted closure device placement, right knee. FINDINGS: ESTIMATED BLOOD LOSS: Minimal. INDICATIONS: The patient is a 63-year-old female who underwent A Left total knee replacement in [facility], she developed an immediate postoperative infection, underwent explant I and D and antibiotic spacer placement This occurred in [place], [place]. She then had further wound breakdown and was brought here to [place]. Underwent another I and D. Was transferred to [facility] facility, came back about 2 days ago with a hypoglycemic episode , was noted to have some wound breakdown at that point. She has been brought back to the OR today for debridement and wound VAC placement. She continues on Zosyn for a Proteus infection. DESCRIPTION OF PROCEDURE: After appropriate informed consent was obtained, patient taken to the operating room and placed supine on the operating table. Further antibiotics were given. Following general endotracheal tube anesthesia , right lower extremity was prepped and draped in the usual sterile fashion. The wound breakdown measured about 4 cm of the distal third of the incision. Remaining Prolene sutures were removed. Nonviable tissue was excised. There was a hematoma within the wound. This was evacuated. I irrigated the wound with pulsatile lavage, 6 L and then closed the proximal and distal ends of the wound with 0 Prolene, and then there was a 3 cm incision left that was not able to be reapproximated. Placed a wound VAC sponge within that as well as along the incision. Instilled 30 mL of 0.5% Marcaine with epinephrine around the incision. VAC was hooked up. There were no leaks. Patient was awakened from anesthesia, taken back to the recovery room in satisfactory condition. There were no immediate introperative complications. COMPLICATIONS: None. DRAINS: 1 VAC. /[id number]/MODL MTDD
[2019-04-04] MEDS: INSULIN GLARGINE 100 UNITS/ML UNIT SC SCH (20:51)
[2019-04-05] MEDS: LEVOTHYROXINE 50 MCG TAB PO SCH (05:38)
[2019-04-05] MEDS ORDERED: FUROSEMIDE 40 MG/4 ML VIAL IVP ONE (09:27)
[2019-04-05] MEDS ORDERED: D50W 25 GM/50 ML SYR IVP PRN (09:30)
[2019-04-05] MEDS ORDERED: ENOXAPARIN 40 MG/0.4 ML SYR SC SCH (09:45)
[2019-04-05] MEDS: DULoxetine 60 MG CAP PO SCH (09:57)
[2019-04-05] MEDS: ERTAPENEM 1 GM in NS 100 ML IV SCH (09:58)
[2019-04-05] MEDS: GABAPENTIN 300 MG CAP PO SCH ×3 (09:58→21:47)
[2019-04-05] MEDS: ATORVASTATIN CALCIUM 40 MG TAB PO SCH (09:58)
[2019-04-05] MEDS ORDERED: SODIUM ZIRCONIUM CYCLOSILICATE 10 GM PACKET PO SCH (11:00)
[2019-04-05] MEDS: HEPARIN 5,000 UNIT/0.5 ML INJ SC SCH (12:14)
[2019-04-05] MEDS: FUROSEMIDE 20 MG TAB PO SCH (12:14)
[2019-04-05] MEDS: SODIUM ZIRCONIUM CYCLOSILICATE 10 GM PACKET PO SCH (12:14)
[2019-04-05] MEDS: ENOXAPARIN 60 MG/0.6 ML SYR SC SCH ×2 (12:21→21:47)
--- NOTE | 2019-04-05 13:55 | ASMTCMCOM ---
CM Note CM Note Notes: Chart reviewed and CM spoke with Dr. Deal. She says pt is not ready to be discharged today and that it may be awhile. CM notified [facility]. CM will continue to follow. [facility] D/C plan: [facility] Date Signed: 04/05/2019 01:54 PM Electronically Signed By:Nayely Rice
[2019-04-05] MEDS: INSULIN REGULAR HUMAN 100 UNIT/ML UNIT SC SCH ×3 (14:14→21:48)
[2019-04-05] MEDS: FUROSEMIDE 40 MG/4 ML VIAL IVP SCH ×2 (14:14→21:47)
--- NOTE | 2019-04-05 14:51 | HOSPPROG ---
Hospitalist Progress Note Assessment/Plan: * Hyperkalemia - persists -massive volume overload - needs IV lasix - will improve K+ -continue hold ARB -continue Lokelma until improved * Hypoglycemia -misadministration of insulin -simplify regimen - Lantus only * Acute on chronic diastolic CHF -massive 4+ edema - start IV lasix * Right prosthetic knee infection s/p repeat wash-out -IV Invanz through 04/30 (MDR proteus) -wound vac * ARF -suspect cardiorenal - need diuresis given volume status -suspect creatinine will improve once cardiac function improves * Morbid obesity BMI 55 * Anemia -follow Subjective: No new complaints Objective: Vital Signs Temp Pulse Resp BP Pulse Ox 36.5 C 78 17 149/66 H 96 04/05/19 12:00 04/05/19 12:00 04/05/19 12:00 04/05/19 12:00 04/05/19 12:00 Laboratory Results 04/04/19 04:45 04/05/19 05:00 04/04/19 04/05/19 04/06/19 05:59 05:59 05:59 Intake Total 854 550 Output Total 1825 1105 450 Balance -971 -555 -450 - Physical Exam Constitutional: no apparent distress, appears nourished, not in pain, obese Cardiovascular: regular rate and rhythym, JVD, edema (4+ up to abdominal wall), No systolic murmur Respiratory: no respiratory distress, no rales or rhonchi, clear to auscultation Gastrointestinal: normoactive bowel sounds, soft, non-tender abdomen, no palpable masses Skin: no rashes or abrasions, no fluctuance, no induration Neurologic: AAOx3, sensation intact bilaterally Psychiatric: interacting appropriately, not anxious, not encephalopathic, thought process linear ICD10 Worksheet Patient Problems: Problems Problem Status Onset Hypoglycemia Acute History of ESBL E. coli infection Acute Right knee pain Acute
[2019-04-05] MEDS: traMADol 50 MG TAB PO PRN (16:14)
[2019-04-05] MEDS: INSULIN GLARGINE 100 UNITS/ML UNIT SC SCH (21:48)
[2019-04-05] MEDS: HYDROmorphONE/DILAUDID 2 MG TAB PO PRN (21:49)
[2019-04-06] MEDS: LEVOTHYROXINE 50 MCG TAB PO SCH (05:12)
[2019-04-06] MEDS: FUROSEMIDE 40 MG/4 ML VIAL IVP SCH ×3 (05:12→21:20)
[2019-04-06] MEDS: HYDROmorphONE/DILAUDID 2 MG TAB PO PRN ×3 (05:13→20:38)
[2019-04-06 05:41] LABS: PLATELET COUNT 186 10^3/uL (150-400)
[2019-04-06 05:59] LABS: INR 1.17 (0.83-1.16); PROTIME(PATIENT) 14.4 SEC (12.0-15.0)
[2019-04-06] MEDS: ERTAPENEM 1 GM in NS 100 ML IV SCH (08:28)
[2019-04-06] MEDS: INSULIN REGULAR HUMAN 100 UNIT/ML UNIT SC SCH ×4 (08:33→21:20)
[2019-04-06] MEDS: ATORVASTATIN CALCIUM 40 MG TAB PO SCH (09:32)
[2019-04-06] MEDS: GABAPENTIN 300 MG CAP PO SCH ×3 (09:32→21:21)
[2019-04-06] MEDS: DULoxetine 60 MG CAP PO SCH (09:33)
[2019-04-06] MEDS: ENOXAPARIN 60 MG/0.6 ML SYR SC SCH ×2 (09:38→21:21)
--- NOTE | 2019-04-06 10:57 | PCMIDPN ---
Assessment/Plan: Assessment/Plan: * Right prosthetic knee septic arthritis status post hardware removal with spacer placement and subsequent spacer exchange due to MSSA and ESBL producing Proteus: Patient now with wound dehiscence requiring repeat incision and drainage with wound VAC application. Operative findings felt to be limited to dehiscence rather than repeat joint involvement. Completing a 6 week course of ertapenem. Will continue to monitor renal function as this has declined with possible need to adjust to 500 mg IV Q 24 hr if continues to worsen. Time spent, greater than 35 min, which greater than half was spent in coordination of care related to right prosthetic knee septic arthritis with multidrug resistant Proteus, recent wound dehiscence, ongoing antibiotic therapy , and worsening renal function. Care was coordinated with patient, Dr. French , and Dr. Deal. 04/06/19 10:53 04/06/19 10:59 Subjective: Patient previously seen by our service on 03/20/2019 for septic arthritis of right TKA status post hardware removal with spacer placement with culture showing growth of MSSA and ESBL producing Proteus. Currently completing a 6 week course of ertapenem with stop date of 04/30/2019. Now has experienced wound dehiscent requiring repeat incision and drainage with wound VAC placement. Operative findings not felt to represent recurrent joint involvement. Patient otherwise does not note fever or rigors. No nausea, vomiting or diarrhea. Has been tolerating ertapenem and PICC line well. Also noted to have worsening renal function with creatinine increased to 1.7 from 1.1 at time of admit; peak creatinine during prior hospitalization 2.7. Based on the recurrent wound dehiscence and readmission, infectious diseases are now asked to assist in her ongoing management. Dr. Bello consult dated 03/20/2019 and recent clinical course reviewed. Objective: Vital Signs Temp Pulse Resp BP Pulse Ox 36.7 C 76 20 160/64 H 91 L 04/06/19 07:06 04/06/19 07:06 04/06/19 07:06 04/06/19 09:32 04/06/19 07:06 Laboratory Results 04/06/19 05:20 04/06/19 05:20 04/05/19 04/06/19 04/07/19 05:59 05:59 05:59 Intake Total 550 1220 Output Total 1105 1100 Balance -555 120 Ertapenem 1 g IV Q 24 hr (stop date 04/30/2019) - Physical Exam General Appearance: alert, no apparent distress, other (Morbidly obese) EENT: No scleral icterus, No thrush, No conjunctival petechiae Respiratory: lungs clear, No respiratory distress Cardiac/Chest: regular rate, rhythm Extremities: inflammation (Right knee with wound VAC in place without surrounding erythema; minimal tenderness to palpation; no active cellulitis) Abdomen: non-tender, No distended Skin: No embolic lesions - Line/s RUE PICC Lines: No drainage, No erythema ICD10 Worksheet Patient Problems: Problems Problem Status Onset Hypoglycemia Acute History of ESBL E. coli infection Acute Right knee pain Acute
--- NOTE | 2019-04-06 11:53 | SOAPPROG ---
SOAP Progress Note Assessment/Plan: Assessment/Plan: LI: pt just recovered from LI a few weeks ago with cr again down to 1.1, now Cr up to 1.7, in setting of another trip to OR for I&D, IVFs given, increase in Lasix, anemia requiring blood transfusion today. - No emergent need for HD. - Will manage diuretics as below. - Will send urine studies and renal US. - Avoid hypotension and nephrotoxins. - Will continue to monitor. - Will d/c tramadol. Hypervolemia: pt has chronic marked volume overload. - Will continue TID dosing of Lasix for now given that she is also getting blood today. - Would not give additional IVFs at this time. - Will continue to monitor. Anemia: Pt transfused 1 unit PRBCs today, will continue to monitor. Hyperkalemia: pt chronically in low 5 range, on Lasix, will continue to monitor. HTN: BP ok on current meds, will monitor. Subjective: Ms. Koenig is a 63 yo F who was seen here a few weeks ago for infected knee joint s/p knee replacement done recently,, developed LI and we were consulted for Cr of 2.7, which improved to 1.7 by discharge. Her RAAS blockade was held but she was restarted on Lasix prior to discharge as she is chronically volume overloaded. Her K is also chronically in low 5 range. Pt was readmitted on 04/01 for hypoglycemia, her Cr was down to 1.1 at that time ( prior baselin 0.7-0.9), was given IVFs at admission. Two days ago, she underwent I&D of R knee along with wound vac placement. Cr up o 1.4 yesterday and today 1.7, prompting consult. Her K was also elevated at 6.0 yesterday, she was given kayexalate and also had her Lasix increased, down to 5.3-5.4 today. She states that she is breathing comfortably and has no pain except at her knee. ROS: positive per HPI, rest of 10-point ROS Negative Objective: Vital Signs Temp Pulse Resp BP Pulse Ox 36.7 C 80 18 142/58 H 88 L 04/06/19 11:34 04/06/19 11:34 04/06/19 11:34 04/06/19 11:34 04/06/19 11:34 Laboratory Results 04/06/19 05:20 04/06/19 05:20 04/05/19 04/06/19 04/07/19 05:59 05:59 05:59 Intake Total 550 1220 Output Total 1105 1100 Balance -555 120 PT 14.4 SEC (12.0-15.0) 04/06/19 05:20 INR 1.17 (0.83-1.16) H 04/06/19 05:20 General: alert and oriented, no acute distress, morbidly obese Eyes: EOMI, PERRL OP: Clear CV: RRR Resp: nonlabored respirations on RA Abd: Soft, NT Ext: +3 edema RLE, +2 edema LLE, wound vac over R knee Neuro: CN II-XII Grossly intact, no asterixis Psych: cooperative ICD10 Worksheet Patient Problems: Problems Problem Status Onset Hypoglycemia Acute History of ESBL E. coli infection Acute Right knee pain Acute
--- NOTE | 2019-04-06 13:02 | HOSPPROG ---
Hospitalist Progress Note Assessment/Plan: * Right prosthetic knee infection s/p repeat wash-out -IV Invanz through 04/30 (MDR proteus) -wound vac -NWB - needs knee immobilizer to get OOB - was left at [place] * Hyperkalemia - improved with IV Lasix -DC ARB * Acute on chronic diastolic CHF with massive volume overload -continue IV Lasix -recent ECHO last admission c/w DD * ARF -suspect cardiorenal - need diuresis given volume status -suspect creatinine will improve once cardiac function improves -nephrology re-consulted - d/w Dr. Turcios * Hypoglycemia -misadministration of insulin -simplify regimen - Lantus only * Morbid obesity BMI 55 * Anemia -transfuse 1 unit today * Urine incontinence -would DC bai prior to discharge Subjective: No new complaints, SOB and edema better Objective: Vital Signs Temp Pulse Resp BP Pulse Ox 36.7 C 80 18 142/58 H 88 L 04/06/19 11:34 04/06/19 11:34 04/06/19 11:34 04/06/19 11:34 04/06/19 11:34 Laboratory Results 04/06/19 05:20 04/06/19 05:20 04/05/19 04/06/19 04/07/19 05:59 05:59 05:59 Intake Total 550 1220 Output Total 1105 1100 Balance -555 120 PT 14.4 SEC (12.0-15.0) 04/06/19 05:20 INR 1.17 (0.83-1.16) H 04/06/19 05:20 CXR - pulmonary edema - Physical Exam Constitutional: no apparent distress, appears nourished, not in pain, obese Cardiovascular: regular rate and rhythym, no murmur, rub, or gallop, edema (4+ dependent) Respiratory: no respiratory distress, no rales or rhonchi, clear to auscultation Gastrointestinal: normoactive bowel sounds, soft, non-tender abdomen, no palpable masses Skin: no rashes or abrasions, no fluctuance, no induration Neurologic: AAOx3, sensation intact bilaterally Psychiatric: interacting appropriately, not anxious, not encephalopathic, thought process linear ICD10 Worksheet Patient Problems: Problems Problem Status Onset Hypoglycemia Acute History of ESBL E. coli infection Acute Right knee pain Acute
[2019-04-06] MEDS: INSULIN GLARGINE 100 UNITS/ML UNIT SC SCH (21:20)
[2019-04-07] MEDS: LEVOTHYROXINE 50 MCG TAB PO SCH (05:03)
[2019-04-07] MEDS: FUROSEMIDE 40 MG/4 ML VIAL IVP SCH ×3 (05:03→22:00)
[2019-04-07 05:20] LABS: CREATINE KINASE 33 IU/L (0-156)
[2019-04-07] MEDS: INSULIN REGULAR HUMAN 100 UNIT/ML UNIT SC SCH ×4 (08:29→22:00)
[2019-04-07] MEDS: ERTAPENEM 1 GM in NS 100 ML IV SCH (08:35)
[2019-04-07] MEDS: ATORVASTATIN CALCIUM 40 MG TAB PO SCH (08:36)
[2019-04-07] MEDS: DULoxetine 60 MG CAP PO SCH (08:36)
[2019-04-07] MEDS: GABAPENTIN 300 MG CAP PO SCH ×3 (08:36→21:59)
[2019-04-07] MEDS: ENOXAPARIN 60 MG/0.6 ML SYR SC SCH ×2 (08:36→22:00)
[2019-04-07] MEDS: HYDROmorphONE/DILAUDID 2 MG TAB PO PRN ×3 (09:03→18:35)
--- NOTE | 2019-04-07 12:10 | SOAPPROG ---
SOAP Progress Note Assessment/Plan: Assessment/Plan: LI: pt just recovered from LI a few weeks ago with cr again down to 1.1, now Cr up to 1.7, in setting of another trip to OR for I&D, IVFs given, increase in Lasix, anemia requiring blood transfusion yesterday. Today Cr down to 1.3, having good UOP with Lasix. Renal US with no concerning findings. - No emergent need for HD. - Will continue diuresis with IV Lasix. - Would consider another unit PRBCs today. - Avoid hypotension and nephrotoxins. - Will continue to monitor. - Have d/c'd tramadol. Hypervolemia: pt has chronic marked volume overload. - Will continue TID dosing of Lasix. - Would not give additional IVFs at this time. - Will continue to monitor. Anemia: Pt transfused 1 unit PRBCs yesterday, Hgb now 7.0, would consider giving another unit PRBCs today. Hyperkalemia: pt chronically in low 5 range and stable there, on Lasix, will continue to monitor. HTN: BP ok on current meds, will monitor. Subjective: No acute events overnight. Pt has no new complaints today, mostly wants to go home. Objective: Vital Signs Temp Pulse Resp BP Pulse Ox 37.0 C 74 17 166/86 H 99 04/07/19 07:38 04/07/19 07:38 04/07/19 07:38 04/07/19 07:38 04/07/19 07:38 Laboratory Results 04/07/19 04:25 04/07/19 04:25 04/06/19 04/07/19 04/08/19 05:59 05:59 05:59 Intake Total 1220 1000 Output Total 1100 2900 Balance 120 -1900 PT 14.4 SEC (12.0-15.0) 04/06/19 05:20 INR 1.17 (0.83-1.16) H 04/06/19 05:20 General: alert and oriented, no acute distress, morbidly obese Eyes: EOMI, PERRL OP: Clear CV: RRR Resp: nonlabored respirations on NC Abd: Soft, NT Ext: +3 edema RLE, +2 edema LLE Neuro: CN II-XII grossly intact, no asterixis Psych: cooperative ICD10 Worksheet Patient Problems: Problems Problem Status Onset Hypoglycemia Acute History of ESBL E. coli infection Acute Right knee pain Acute
--- NOTE | 2019-04-07 12:24 | WOCRNPDOC ---
WOCRN Advanced Assessment Note - Skin Integrity Problem, Advanced Assess Right Knee Surgical Wound/Incision Dressing Type: Wound Vac Dressing Description: Intact Integumentary Issue Intervention: Dressing Changed Wound Bed Constitution: Granulation Tissue (60%), Smooth Tissue (40%) Site Measurement - Head-to-Toe Length X Width X Depth (cm): 3x3x0.2; incision a total of 18cm Skin Integrity Problem Comment: Incisional dressing placed by Dr French removed. Incision approximated and appears granular and macerated, black foam had been directly on skin. Along the length of the incision, there are very small open areas where the sutures were placed. No concerns with these spots. The previously open wound that is within the distal third of the incision appears closed at this time. Gentle probing does not reveal any tunneling. Cleaned with ns and gauze. Mastisol skin prep martha incisional. Drpae to window the incision and a strip of Adaptic Touch placed over the incision. Two pieced small [place] black foam placed. Suction continued with no leaks noted. Dr French notified of findings.
--- NOTE | 2019-04-07 13:24 | ASMTCMCOM ---
CM Note CM Note Notes: Araseli from [facility] brought patient her knee immobilizer. I notified RN, MD, and PT. Patient continues to require IV diuresis and IV abx. She will return to [facility] when medically stable. Date Signed: 04/07/2019 12:46 PM Electronically Signed By:Ann Marie Baldwin RN
--- NOTE | 2019-04-07 15:06 | HOSPPROG ---
Hospitalist Progress Note Assessment/Plan: * Right prosthetic knee infection s/p repeat wash-out, s/p hardware removal -IV Invanz through 04/30 (MDR proteus) -wound vac -NWB - needs knee immobilizer to get OOB * Hyperkalemia - improved with IV Lasix -DC ARB -low potassium diet * Acute on chronic diastolic CHF with massive volume overload -continue IV Lasix -recent ECHO last admission c/w DD * ARF -suspect cardiorenal - creatinine improving with diuresis * Hypoglycemia -misadministration of insulin -simplify regimen - Lantus only * Morbid obesity BMI 55 * Anemia -transfuse another unit today -no evidence for blood loss, not clear why H/H dropping * Urine incontinence -would DC bai prior to discharge Subjective: No new complaints. Objective: Vital Signs Temp Pulse Resp BP Pulse Ox 36.6 C 78 23 H 145/61 H 98 04/07/19 12:47 04/07/19 12:47 04/07/19 12:47 04/07/19 12:47 04/07/19 12:47 Laboratory Results 04/07/19 04:25 04/07/19 04:25 04/06/19 04/07/19 04/08/19 05:59 05:59 05:59 Intake Total 1220 1000 Output Total 1100 2900 Balance 120 -1900 PT 14.4 SEC (12.0-15.0) 04/06/19 05:20 INR 1.17 (0.83-1.16) H 04/06/19 05:20 d/w Dr. Turcios - she recommends another unit of blood Abd US - negative - Physical Exam Constitutional: no apparent distress, appears nourished, not in pain Cardiovascular: regular rate and rhythym, no murmur, rub, or gallop, edema (4+, upper thighs, abd wall, depedent due to bed bound status) Respiratory: no respiratory distress, no rales or rhonchi, clear to auscultation Gastrointestinal: normoactive bowel sounds, soft, non-tender abdomen, no palpable masses Skin: no rashes or abrasions, no fluctuance, no induration Neurologic: AAOx3, sensation intact bilaterally Psychiatric: interacting appropriately, not anxious, not encephalopathic, thought process linear ICD10 Worksheet Patient Problems: Problems Problem Status Onset Hypoglycemia Acute History of ESBL E. coli infection Acute Right knee pain Acute
[2019-04-07] MEDS: INSULIN GLARGINE 100 UNITS/ML UNIT SC SCH (22:00)
[2019-04-08] MEDS: FUROSEMIDE 40 MG/4 ML VIAL IVP SCH (05:42)
[2019-04-08] MEDS: LEVOTHYROXINE 50 MCG TAB PO SCH (05:42)
[2019-04-08 06:00] LABS: PLATELET COUNT 160 10^3/uL (150-400)
[2019-04-08] MEDS: INSULIN REGULAR HUMAN 100 UNIT/ML UNIT SC SCH ×4 (09:27→22:37)
[2019-04-08] MEDS: ERTAPENEM 1 GM in NS 100 ML IV SCH (09:39)
[2019-04-08] MEDS: ENOXAPARIN 60 MG/0.6 ML SYR SC SCH ×2 (09:45→21:54)
[2019-04-08] MEDS: GABAPENTIN 300 MG CAP PO SCH ×3 (09:45→21:54)
[2019-04-08] MEDS: ATORVASTATIN CALCIUM 40 MG TAB PO SCH (09:45)
[2019-04-08] MEDS: DULoxetine 60 MG CAP PO SCH (09:46)
[2019-04-08] MEDS: HYDROmorphONE/DILAUDID 2 MG TAB PO PRN (09:50)
--- NOTE | 2019-04-08 11:57 | SOAPPROG ---
SOAP Progress Note Assessment/Plan: Assessment: LI, resolved infected knee, s/p removal of hardware and wound clean out obesity/immobility Plan: continue therapies renal signing off 04/08/19 11:54 Subjective: frustrated tearful that she will miss her granddaughter's HS graduation this weekend no cp sob nausea or vomiting appetite OK sleeping OK Objective: Vital Signs Temp Pulse Resp BP Pulse Ox 36.6 C 79 24 H 154/70 H 96 04/08/19 07:42 04/08/19 07:42 04/08/19 07:42 04/08/19 07:42 04/08/19 07:42 Laboratory Results 04/08/19 05:35 04/08/19 05:35 04/07/19 04/08/19 04/09/19 05:59 05:59 05:59 Intake Total 1000 330 Output Total 2900 5250 1550 Balance -1900 -4920 -1550 PT 14.4 SEC (12.0-15.0) 04/06/19 05:20 INR 1.17 (0.83-1.16) H 04/06/19 05:20 Physical Exam - Physical Exam General Appearance: alert, obese Neck: normal inspection Respiratory: No rhonchi, No wheezing Cardiac/Chest: regular rate, rhythm, edema, No friction rub Abdomen: normal bowel sounds, non-tender Skin: other (right knee wound bandaged) Extremities: swelling Neuro/Psych: alert, oriented x 3, other (sad about her stuation) ICD10 Worksheet Patient Problems: Problems Problem Status Onset Hypoglycemia Acute History of ESBL E. coli infection Acute Right knee pain Acute
--- NOTE | 2019-04-08 12:10 | HOSPPROG ---
Hospitalist Progress Note Assessment/Plan: 63 yo F with PMH of morbid obesity, right prosthetic knee infection and acute on chronic diastolic heart failure and LI now improved * Right prosthetic knee infection s/p repeat wash-out, s/p hardware removal -IV Invanz through 04/30 (MDR proteus), f/u with ID previously arranged -wound vac -NWB - needs knee immobilizer to get OOB * Hyperkalemia - improved with IV Lasix -DC ARB -low potassium diet * Acute on chronic diastolic CHF -still with volume overload but improved from prior -d/c IV lasix and change to oral for now and so long as no issues overnight will dc in am * ARF -suspect cardiorenal - creatinine improved with diuresis * Hypoglycemia -misadministration of insulin -simplify regimen - Lantus only * Morbid obesity BMI 55 * Anemia -transfused -no evidence for blood loss, h/h remain on the low end * Urine incontinence - DC bai today in anticipation of dc in am * dispo: dc back to SNF in am Patient new to my care. Old records reviewed and summarized as above. Care plan reviewed with nursing/CM. Subjective: no acute overnight events, patient reports overall feeling much better but still weak Objective: Vital Signs Temp Pulse Resp BP Pulse Ox 36.6 C 79 24 H 154/70 H 96 04/08/19 07:42 04/08/19 07:42 04/08/19 07:42 04/08/19 07:42 04/08/19 07:42 Laboratory Results 04/08/19 05:35 04/08/19 05:35 04/07/19 04/08/19 04/09/19 05:59 05:59 05:59 Intake Total 1000 330 Output Total 2900 5250 1550 Balance -1900 -4920 -1550 PT 14.4 SEC (12.0-15.0) 04/06/19 05:20 INR 1.17 (0.83-1.16) H 04/06/19 05:20 morbidly obese, awake alert anicteric op clear rrr no mrg cta dec bs at bases obese soft nt ble edema warm dry well perfused oriented appropriate ICD10 Worksheet Patient Problems: Problems Problem Status Onset Hypoglycemia Acute History of ESBL E. coli infection Acute Right knee pain Acute
--- NOTE | 2019-04-08 12:26 | SOAPPROG ---
SOAP Progress Note Assessment/Plan: Assessment: Plan: 04/03/19 05:40 S/P Explant TKA I&D x 2 Patient readmitted from SNF with hypoglycemia, improved now. Diabetic acute care occupational therapist from [facility] notified me it was discovered Joanne had been self administering, with the help of her family, Denise while an inpatient there. Further wound breakdown noted yesterday when VAC changed. She will need repeat washout in OR possibly late Today or Sunday. 04/08/19 12:25 s/p repeat I&D Sunday Vac change yesterday, wound granulating Cont IV abx per ID until 6 Glucose under better control Subjective: struggling with mobility Objective: Vac in place calf soft 5/5 df/pf Vital Signs Temp Pulse Resp BP Pulse Ox 36.6 C 81 16 144/58 H 90 L 04/08/19 12:17 04/08/19 12:17 04/08/19 12:17 04/08/19 12:17 04/08/19 12:17 Laboratory Results 04/08/19 05:35 04/08/19 05:35 04/07/19 04/08/19 04/09/19 05:59 05:59 05:59 Intake Total 1000 330 Output Total 2900 5250 1550 Balance -1900 -4920 -1550 PT 14.4 SEC (12.0-15.0) 04/06/19 05:20 INR 1.17 (0.83-1.16) H 04/06/19 05:20 ICD10 Worksheet Patient Problems: Problems Problem Status Onset Hypoglycemia Acute History of ESBL E. coli infection Acute Right knee pain Acute
[2019-04-08] MEDS: ACETAMINOPHEN 325 MG TAB PO PRN (12:37)
[2019-04-08] MEDS: FUROSEMIDE 40 MG TAB PO SCH ×2 (12:37→21:54)
--- NOTE | 2019-04-08 13:10 | CPEKG ---
Test Reason : hyperkalemia Blood Pressure : / mmHG Vent. Rate : 070 BPM Atrial Rate : 070 BPM P-R Int : 143 ms QRS Dur : 090 ms QT Int : 387 ms P-R-T Axes : 048 011 026 degrees QTc Int : 418 ms Sinus rhythm Confirmed by Clive Cook ([id number]) on 04/08/2019 1:10:27 PM Referred By: Lubna Ritter Confirmed By:Clive Cook
[2019-04-08] MEDS: INSULIN GLARGINE 100 UNITS/ML UNIT SC SCH (21:54)
[2019-04-09] MEDS: FUROSEMIDE 40 MG TAB PO SCH ×2 (05:33→15:21)
[2019-04-09] MEDS: LEVOTHYROXINE 50 MCG TAB PO SCH (05:33)
[2019-04-09 05:49] LABS: PLATELET COUNT 151 10^3/uL (150-400)
[2019-04-09] MEDS: INSULIN REGULAR HUMAN 100 UNIT/ML UNIT SC SCH ×2 (09:16→15:22)
[2019-04-09] MEDS: GABAPENTIN 300 MG CAP PO SCH ×2 (09:16→15:21)
[2019-04-09] MEDS: ERTAPENEM 1 GM in NS 100 ML IV SCH (09:17)
[2019-04-09] MEDS: DULoxetine 60 MG CAP PO SCH (09:17)
[2019-04-09] MEDS: ENOXAPARIN 60 MG/0.6 ML SYR SC SCH (09:17)
[2019-04-09] MEDS: ATORVASTATIN CALCIUM 40 MG TAB PO SCH (09:17)
[2019-04-09 11:23] VITALS: BP 170/71
--- NOTE | 2019-04-09 12:09 | PDIAF ---
- Diagnosis Code Status: Full Code - Medication Management Discharge Medications: electronically signed and located in the Home Medication List. - Orders Services needed: Registered Nurse, Certified National Sales Executive, Physical Therapy, Occupational Therapy Isolation Type: Contact Isolation Diet Recommendation: ADA 2199 consistent carb Additional Instructions: Wound care: Change dressings to right lateral knee and right posterior thigh wounds (not surgical incision area) every 3 days and prn. 1. Clean with ns and gauze 2. Wound gel to wound bed 3. Cover with foam border dressing. Oksana Raman CWON - Labs/Radiology FBS Date: 04/09/19 (daily) - Follow Up Care Current Providers and Referrals: Patient,NotPresent [Unknown] - As per Instructions
--- NOTE | 2019-04-09 12:10 | PDDCSUM ---
Discharge Summary Discharge Summary: Dates of service 04/11-04/09/19 Consultations: orthopedic surgery, infectious disease, wound care Procedures: I&D/wound vac to leg Hospital course by problem: 63 yo F with PMH of morbid obesity, right prosthetic knee infection and acute on chronic diastolic heart failure and LI presenting with hypoglycemia from SNF * Right prosthetic knee infection s/p repeat wash-out, s/p hardware removal on prior admission -IV Invanz through 04/30 (MDR proteus), f/u with ID previously arranged -wound vac continued -NWB - needs knee immobilizer to get OOB * Hyperkalemia - improved with IV Lasix -DC ARB -low potassium diet * Acute on chronic diastolic CHF -still with volume overload but improved from prior -continues to improve on oral lasix and will continue at increased dose of 40 bid for now * LI -suspect cardiorenal - creatinine improved with diuresis * Hypoglycemia -misadministration of insulin -simplify regimen - Lantus only * Morbid obesity BMI 55 * Anemia -transfused -no evidence for blood loss, h/h remain on the low end * Urine incontinence -was an issue with wound vac and bai in place prior to admission, will attempt to dc either here or at SNF and transition to [facility] * dispo: dc back to SNF Items for follow up: --continued monitoring of knee infection --continued abx --monitoring of creatinine/potassium levels > 35 min spent in dc more than half in coordination of care
[2019-04-09] MEDS: HYDROmorphONE/DILAUDID 2 MG TAB PO PRN (12:16)
--- NOTE | 2019-04-09 12:45 | ASMTLACE ---
LACE Length of stay for Answers: 7-13 days current admission Acuity / Level of Answers: Yes Care: Did the patient have an inpatient admission? Comorbidities - select Answers: Diabetes (uncontrolled or all that apply controlled) Mild liver or renal disease Other Notes: HTN; HLD # of Emergency department Answers: 1-2 visits in the last 6 months Score: 13 Date Signed: 04/09/2019 12:44 PM Electronically Signed By:ARNOLD Xiong
--- NOTE | 2019-04-09 12:52 | ASMTDCNOTE ---
Case Management Discharge Discharge Order Complete? Answers: Yes Patient to Obtain Answers: Other Notes: [facility] Medications Transportation Arranged Answers: [facility] Transport will Pick (Date 04/09/2019 04:00 PM & Time) EMTALA Complete Answers: No Case Management Transport Answers: Yes Notes: PCS form completed Form Complete Faxed Final Orders Answers: Yes Agency/Facility Transfer Answers: Yes Report Printed & Faxed to Receiving Agency Family Notified Answers: No Discharge Comments Notes: Pts case discussed w/ Dr. Ordaz. Pt is being d/c'd today. DC orders sent to [facility]. CM arranged for a stretcher, per the recommendation of RN. PCS form completed. CM confirmed w/ Nat at [facility] that the wound vac pt currently has is the one the hospital is helping to pay for. The serial number of the wound vac is [id number]. Pt will d/c back to [facility] w/ this wound vac. Lizabeth RN will call to give report. CM available for changes. Plan: [facility] Date Signed: 04/09/2019 12:50 PM Electronically Signed By:ARNOLD Xiong
--- NOTE | 2019-04-09 12:54 | ASDISCHSUM ---
Discharge Information Plan Status:SNF Medically Cleared to Leave:04/09/2019 Discharge Date:04/09/2019 CM D/C Disposition: ADT D/C Disposition:Care Home Facility Projected Discharge Date:04/09/2019 11:00 AM Transportation at D/C: Discharge Delay Reason: Follow-Up Date:04/09/2019 11:00 AM Discharge Slot: Final Diagnosis: Placement Information Referral Type:*Penitentiary/SNF Referral ID:[id number] Provider Name:Lindy Kiserulder Address 1:[address] Address 2: City:[place] Selection Factors: State:[place] Patient Contact Information Contact Name:LUIZ Relationship:Daughter Address: Home Phone: City: [facility] Phone: [facility] Code: Email: Financial Information Financial Class:Medicaid Primary Plan Desc:[place] Primary Plan Number:[id number] Secondary Plan Desc: Secondary Plan Number: Assessment Information LACE LACE Length of stay for Answers: 7-13 days current admission Acuity / Level of Answers: Yes Care: Did the patient have an inpatient admission? Comorbidities - select Answers: Diabetes (uncontrolled or all that apply controlled) Mild liver or renal disease Other Notes: HTN; HLD # of Emergency department Answers: 1-2 visits in the last 6 months Score: 13 Date Signed: 04/09/2019 12:44 PM Electronically Signed By:ARNOLD Xiong [facility] Progress Note CM Note CM Note Notes: Pt is a 63 yo F who presented to ED last night from [facility] for hypoglycemia. Pt is a Medicaid pt who lives in [place], [place]. Was discharged last week to [facility] with [facility] helping to pay for part of pt's wound vac and antibiotics because she was denied from various facilities for her high needs. Danette Mcginnis was involved in discharge planning last admission to collaborate with financial agreements with [facility]. Trell DIAZ aware of admission. CM spoke with Crystal from [facility] who reports they can take pt back once she is medically stabalized here. CM submit updates via [employer]. CM met with pt and she reports she wants to be closer to her family. CM reminded her that she was denied from numerous facilities due to her high level of needs and [facility] was only facility able to accomodate her needs. Pt reports she cried a lot while she was at [facility]. CM to follow. Plan: likely to return to [facility] once medically stable, CM looking for other medicaid facilities who may consider her. Date Signed: 04/01/2019 02:49 PM Electronically Signed By:ARNOLD Simons [facility] Progress Note CM Note CM Note Notes: Chart reviewed. Per Juliette Chacon, pt is not a candidate to go home which is what pt wants; really needs a SNF. [facility] referral is in place, which is where she had been prior to coming to the hospital. Pt is to have a washout of her infected leg later today in the OR. CM will continue to monitor. [facility] D/C plan: SNF Date Signed: 04/04/2019 01:55 PM Electronically Signed By:Nayely Rice [facility] CM Progress Note CM Note CM Note Notes: Chart reviewed and CM spoke with Dr. Deal. She says pt is not ready to be discharged today and that it may be awhile. CM notified [facility]. CM will continue to follow. CM D/C plan: [facility] Date Signed: 04/05/2019 01:54 PM Electronically Signed By:Nayely Rice [facility] Progress Note CM Note CM Note Notes: Araseli from [facility] brought patient her knee immobilizer. I notified RN, MD, and PT. Patient continues to require IV diuresis and IV abx. She will return to [facility] when medically stable. Date Signed: 04/07/2019 12:46 PM Electronically Signed By:Ann Marie Baldwin RN Case Management Discharge Plan Note Case Management Discharge Discharge Order Complete? Answers: Yes Patient to Obtain Answers: Other Notes: [facility] Medications Transportation Arranged Answers: [facility] St[facility] Transport will Pick (Date 04/09/2019 04:00 PM & Time) JERAMY Complete Answers: No Case Management Transport Answers: Yes Notes: PCS form completed Form Complete Faxed Final Orders Answers: Yes Agency/Facility Transfer Answers: Yes Report Printed & Faxed to Receiving Agency Family Notified Answers: No Discharge Comments Notes: Pts case discussed w/ Dr. Ordaz. Pt is being d/c'd today. DC orders sent to [facility]. CM arranged for a stretcher, per the recommendation of RN. PCS form completed. CM confirmed w/ Nat at [facility] that the wound vac pt currently has is the one the hospital is helping to pay for. The serial number of the wound vac is [id number]. Pt will d/c back to [facility] w/ this wound vac. BIBI Barone will call to give report. CM available for changes. Plan: [facility] Date Signed: 04/09/2019 12:50 PM Electronically Signed By:ARNOLD Xiong Intervention Information
--- NOTE | 2019-04-09 14:28 | WOCRNPDOC ---
WOCRN Advanced Assessment Note - Skin Integrity Problem, Advanced Assess Right Knee Surgical Wound/Incision Dressing Type: Wound Vac Closure Description: Sutures Exudate Amount: Moderate Exudate Color: Red, Orwin Exudate Characteristic(s): Bloody, Serosanguinous Integumentary Issue Intervention: Dressing Changed Martha Wound Tissue: Macerated (minimally) Wound Bed Constitution: Granulation Tissue (50%), Red/Orwin - Non Granular Tissue (30%), Mixed Loose & Adhered Slough/Eschar (20%) Wound Edges: Attached Site Odor: None Site Measurement - Head-to-Toe Length X Width X Depth (cm): 3.4x3.8x0.2 for open area; total incision length 19 cm. Skin Integrity Problem Comment: Dressing removed to reveal incisional wound witha larger roundish granulating area in the distal third of incision, right side of the incision. There is also a smaller open area just 1 cm above roughly 1x1x0.2 cm star shaped. Oozing coming from the actual incision at the larger open area, increased from last vac change. Per patient, she placed weight on leg today with therapy and "it's been draining more since". Gentle probing to open area does not reveal any tunneling. Also noted is a 0.5x0.5x0.3 open wound at the proximal end, right side of the incision. This spot was minimally goopy when vac dressing removed. Cleaned all with ns and gauze. Skin prep martha incisional. Drape placed to window the incision and open areas. A strip of Adaptic Touch placed along the incision to cover smaller open areas as well. Two pieces small Simplace black foam placed. Suction continued at -125 mm Hg with no leaks noted. Dr French and Rochelle SUERO notified of findings. Anticipated DC today of patient to facility and will follow up sunday if patient still here.
[2019-04-09] MEDS: ACETAMINOPHEN 325 MG TAB PO PRN (15:38)
--- NOTE | 2019-04-09 15:55 | PDIAF ---
- Diagnosis Code Status: Full Code - Medication Management Discharge Medications: electronically signed and located in the Home Medication List. - Orders Services needed: Registered Nurse, Certified Pullman Conductor, Physical Therapy, Occupational Therapy Isolation Type: Contact Isolation Diet Recommendation: ADA 2200 consistent carb Additional Instructions: Wound care: Change dressings to right lateral knee and right posterior thigh wounds (not surgical incision area) every 3 days and prn. 1. Clean with ns and gauze 2. Wound gel to wound bed 3. Cover with foam border dressing. Oksana Raman CWCHACHO Wound vac orders: Drape to window incision and open areas. Place strip of silicone contact layer wide enough to cover all tissue not draped that will be covered by small Simplace black foam. Suction at -125 mm Hg continuous. Change M/W/F. José Antonio Kessler RN WC Team - Labs/Radiology BMP Date: 04/11/19 (weekly) CBC w/diff Date: 04/11/19 (weekly) FBS Date: 04/09/19 (daily) - Follow Up Care Current Providers and Referrals: Patient,NotPresent [Unknown] - As per Instructions
--- NOTE | 2019-04-09 15:57 | PDIAF ---
- Diagnosis Code Status: Full Code - Medication Management Nursing Home Antibiotics: ertapenem 1gm IV daily Manufacturing Quality Inspector Antibiotic Stop Date: 04/30/19 Discharge Medications: electronically signed and located in the Home Medication List. PICC Care - Routine: Yes - Orders Services needed: Registered Nurse, Certified Pig Furnace Operator, Physical Therapy, Occupational Therapy Isolation Type: Contact Isolation Diet Recommendation: ADA 2200 consistent carb Additional Instructions: Wound care: Change dressings to right lateral knee and right posterior thigh wounds (not surgical incision area) every 3 days and prn. 1. Clean with ns and gauze 2. Wound gel to wound bed 3. Cover with foam border dressing. Oksana Raman CWON Wound vac orders: Drape to window incision and open areas. Place strip of silicone contact layer wide enough to cover all tissue not draped that will be covered by small Simplace black foam. Suction at -125 mm Hg continuous. Change M/W/F. José Antonio Kessler RN Team - Labs/Radiology BMP Date: 04/11/19 (weekly) CBC w/diff Date: 04/11/19 (weekly) FBS Date: 04/09/19 (daily) - Follow Up Care Current Providers and Referrals: Patient,NotPresent [Unknown] - As per Instructions
== END 2019-04-09 16:21 | DRG 711 ==
LOC: EDUNIT# → F2N 04-01 03:11 → OBSVTOIN 04-02 16:40 → F3E 04-02 18:29
PROVIDERS: ADMIT Family Medicine; ATTEND Family Medicine
PROC: 0J9N0ZZ Drainage of Right Lower Leg Subcutaneous Tissue and Fascia, Open Approach (ICD-10-PCS; principal; 2019-04-04 12:15)
PROC: 0JCN0ZZ Extirpation of Matter from Right Lower Leg Subcutaneous Tissue and Fascia, Open Approach (ICD-10-PCS; principal; 2019-04-04 12:15)
DX: T81.49XA Infection following a procedure, other surgical site, initial encounter (principal); I11.0 Hypertensive heart disease with heart failure; I50.33 Acute on chronic diastolic (congestive) heart failure; E11.649 Type 2 diabetes mellitus with hypoglycemia without coma; N17.9 Acute kidney failure, unspecified; M96.840 Postprocedural hematoma of a musculoskeletal structure following a musculoskeletal system procedure; E87.5 Hyperkalemia; E66.01 Morbid (severe) obesity due to excess calories; Z68.43 Body mass index [BMI] 50.0-59.9, adult; D64.9 Anemia, unspecified; R32 Unspecified urinary incontinence; E03.9 Hypothyroidism, unspecified; E78.5 Hyperlipidemia, unspecified; G89.4 Chronic pain syndrome
CPT/HCPCS: 97162-GP; 97166-GO; 97530-GO; 97530-GP; 97535-GO; G0378; J1170; J1335; J1644; J1650; J1815; J1940; J2001; J2250; J2704; J2765; J2780; J3010; J7613; P9016; P9021